=== PATIENT | female | born 1940 | race Caucasian/White ===

== ENCOUNTER → 2016-05-19 | Outpatient (CLI) | payer MEDICARE, OTHER ==
[~2016-05-19] MED LIST: BENA40TA OR; CLON0.1T PO; PANTPAK PO; TRIA37.561 OR
[2016-05-19 13:00] LABS: DEFINITIVE VIEW TRANSMISSION; Hematocrit 34.3 % (36.0-46.0); Hemoglobin 11.6 g/dL (12.2-16.2); Mean Corpuscular Hemoglobin 33.5 pg (28.0-32.0); Mean Corpuscular Hgb Conc. 33.7 g/dL (32.0-36.0); Mean Corpuscular Volume 99.4 fL (80.0-100.0); Platelet Count (auto) 77 10^3/uL (140-450); Red Cell Distribution Width 14.3 % (11.6-16.0); SUSPECT VIEW TRANSMISSION; White Blood Cell 5.8 10^3/uL (4.4-10.8)
[2016-05-19 13:16] LABS: Metamyelocytes % 0; Myelocytes % 0; Promyelocytes % 0; Reactive Lymphocytes 0
[2016-05-19 14:37] LABS: Platelet Estimate Decreased; RBC Morphology Normal
== END | disposition home or self-care (01) ==
LOC: LAB 07:54
PROVIDERS: ATTEND Internal Medicine Cardiovascular Disease
DX: D64.9 Anemia, unspecified (principal)
CPT/HCPCS: 36415; 85007; 85027

== ENCOUNTER → 2016-07-21 | Outpatient (CLI) | payer MEDICARE, OTHER ==
[2016-07-21 08:00] VITALS: BP 128/78
[2016-07-21 08:30] VITALS: BP 130/66
[2016-07-21 12:16] LABS: DEFINITIVE VIEW TRANSMISSION; SUSPECT VIEW TRANSMISSION
[2016-07-21 12:23] LABS: Urine Bilirubin Negative (Negative); Urine Blood TRACE /uL (Negative); Urine Color Yellow (Yellow); Urine Glucose Normal (Normal); Urine Ketone Negative (Negative); Urine Mucus FEW (None Seen); Urine Nitrite Negative (Negative); Urine RBC 18 /hpf (0 - 4); Urine Squamous Epithelial Cell MANY /hpf (<5); Urine Urobilinogen Normal (Negative)
[2016-07-21 12:39] LABS: INR 1.05 (0.9-1.15); Prothrombin Time 10.8 sec (9.37-12.3)
[2016-07-21 13:01] LABS: Hematocrit 35.6 % (36.0-46.0); Hemoglobin 12.2 g/dL (12.2-16.2); Mean Corpuscular Hemoglobin 34.1 pg (28.0-32.0); Mean Corpuscular Hgb Conc. 34.4 g/dL (32.0-36.0); Platelet Count (auto) 92 10^3/uL (140-450); Red Cell Distribution Width 13.7 % (11.6-16.0); White Blood Cell 6.1 10^3/uL (4.4-10.8)
[2016-07-21 13:32] LABS: Metamyelocytes % 0; Myelocytes % 0; Promyelocytes % 0; Reactive Lymphocytes 0
[2016-07-21 13:45] LABS: Albumin 3.8 g/dL (3.4-5.0); BUN/Creatinine Ratio 11.2; Bilirubin, Total 0.5 mg/dL (0.2-1.0); Calcium 9.2 mg/dL (8.5-10.1); Potassium 3.6 mmol/L (3.5-5.1); Total Protein 8.5 g/dL (6.4-8.2)
[2016-07-21 13:51] LABS: Platelet Estimate Decreased; RBC Morphology Normal
== END | disposition home or self-care (01) ==
LOC: Rad HDHVI 07:54
PROVIDERS: ATTEND Internal Medicine Cardiovascular Disease
DX: R59.0 Localized enlarged lymph nodes (principal); C44.310 Basal cell carcinoma of skin of unspecified parts of face; M79.89 Other specified soft tissue disorders; D53.8 Other specified nutritional anemias; N39.0 Urinary tract infection, site not specified; D64.9 Anemia, unspecified; D46.9 Myelodysplastic syndrome, unspecified
CPT/HCPCS: 36415; 71020; 80053; 81001; 83615; 85007; 85027; 85610; 85730; 87086; G0463

== ENCOUNTER → 2016-09-14 | Outpatient (CLI) | payer MEDICARE, OTHER ==
[2016-09-14 16:08] LABS: DEFINITIVE VIEW TRANSMISSION; Hematocrit 34.9 % (36.0-46.0); Hemoglobin 11.6 g/dL (12.2-16.2); Mean Corpuscular Hemoglobin 33.5 pg (28.0-32.0); Mean Corpuscular Hgb Conc. 33.3 g/dL (32.0-36.0); Mean Corpuscular Volume 100.5 fL (80.0-100.0); Mean Platelet Volume 10.6 fL (7.4-10.4); Platelet Count (auto) 87 10^3/uL (140-450); Red Cell Distribution Width 14.4 % (11.6-16.0); SUSPECT VIEW TRANSMISSION
[2016-09-14 16:23] LABS: Metamyelocytes % 0; Myelocytes % 0; Promyelocytes % 0; Reactive Lymphocytes 0
[2016-09-14 16:47] LABS: Albumin 3.6 g/dL (3.4-5.0); BUN/Creatinine Ratio 14.7; Bilirubin, Total 0.6 mg/dL (0.2-1.0); Calcium 9.1 mg/dL (8.5-10.1); Potassium 4.6 mmol/L (3.5-5.1); Total Protein 8.5 g/dL (6.4-8.2)
[2016-09-14 17:32] LABS: Platelet Estimate Decreased
== END | disposition home or self-care (01) ==
LOC: LAB 07:53
PROVIDERS: ATTEND Internal Medicine Cardiovascular Disease
DX: R59.0 Localized enlarged lymph nodes (principal); C44.310 Basal cell carcinoma of skin of unspecified parts of face; D69.6 Thrombocytopenia, unspecified; D46.9 Myelodysplastic syndrome, unspecified
CPT/HCPCS: 36415; 80053; 83615; 85007; 85027

== ENCOUNTER → 2016-11-06 | Outpatient (CLI) | payer MEDICARE, OTHER ==
[2016-11-06 12:44] LABS: CONDITION Y; DEFINITIVE SEE PRINTOUT; Hematocrit 32.9 % (36.0-46.0); Hemoglobin 11.2 g/dL (12.2-16.2); Mean Corpuscular Hemoglobin 34.2 pg (28.0-32.0); Mean Corpuscular Hgb Conc. 34.1 g/dL (32.0-36.0); Mean Corpuscular Volume 100.2 fL (80.0-100.0); Platelet Count (auto) 90 10^3/uL (140-450); Red Cell Distribution Width 14.4 % (11.6-16.0); SUSPECT SEE PRINTOUT; White Blood Cell 6.6 10^3/uL (4.4-10.8)
[2016-11-06 12:54] LABS: Metamyelocytes % 0; Promyelocytes % 0; Reactive Lymphocytes 0
[2016-11-06 13:07] LABS: Albumin 3.7 g/dL (3.4-5.0); BUN/Creatinine Ratio 21.3; Bilirubin, Total 0.5 mg/dL (0.2-1.0); Calcium 8.8 mg/dL (8.5-10.1); Potassium 3.8 mmol/L (3.5-5.1); Total Protein 7.9 g/dL (6.4-8.2)
[2016-11-06 14:16] LABS: Myelocytes % 2
[2016-11-06 14:20] LABS: Platelet Estimate Decreased
[2016-11-06 14:21] LABS: Ovalocytes FEW
== END | disposition home or self-care (01) ==
LOC: LAB 08:30
PROVIDERS: ATTEND Internal Medicine Cardiovascular Disease
DX: R59.0 Localized enlarged lymph nodes (principal); C44.310 Basal cell carcinoma of skin of unspecified parts of face; D69.6 Thrombocytopenia, unspecified; D46.9 Myelodysplastic syndrome, unspecified
CPT/HCPCS: 36415; 80053; 83615; 85007; 85027

== ENCOUNTER → 2017-01-29 | Outpatient (CLI) | payer MEDICARE, OTHER ==
[2017-01-29 12:34] LABS: CONDITION Y; DEFINITIVE SEE PRINTOUT; Hematocrit 32.8 % (36.0-46.0); Hemoglobin 11.2 g/dL (12.2-16.2); Mean Corpuscular Hemoglobin 34.7 pg (28.0-32.0); Mean Corpuscular Hgb Conc. 34.2 g/dL (32.0-36.0); Mean Corpuscular Volume 101.4 fL (80.0-100.0); Mean Platelet Volume 9.9 fL (6.9-10.8); Platelet Count (auto) 79 10^3/uL (140-450); Red Cell Distribution Width 15.1 % (11.8-14.3); SUSPECT SEE PRINTOUT
[2017-01-29 12:54] LABS: Metamyelocytes % 0; Myelocytes % 0; Promyelocytes % 0; Reactive Lymphocytes 0
[2017-01-29 12:58] LABS: Giant Platelets Few; Large Platelets FEW; Platelet Estimate Decrea
[2017-01-29 12:59] LABS: Tear Drop Cells FEW
[2017-01-29 13:09] LABS: Albumin 3.9 g/dL (3.4-5.0); BUN/Creatinine Ratio 18.2; Bilirubin, Total 0.6 mg/dL (0.2-1.0); Calcium 9.4 mg/dL (8.5-10.1); Total Protein 8.5 g/dL (6.4-8.2)
== END | disposition home or self-care (01) ==
LOC: LAB 08:20
PROVIDERS: ATTEND Internal Medicine Cardiovascular Disease
DX: I10 Essential (primary) hypertension (principal); D64.9 Anemia, unspecified
CPT/HCPCS: 36415; 80053; 83615; 85007; 85027

== ENCOUNTER → 2017-03-29 | Outpatient (CLI) | payer MEDICARE, OTHER ==
[2017-03-29 13:01] LABS: Hematocrit 34.2 % (36.0-46.0); Hemoglobin 11.7 g/dL (12.2-16.2); Mean Corpuscular Hemoglobin 34.6 pg (28.0-32.0); Mean Corpuscular Hgb Conc. 34.4 g/dL (32.0-36.0); Mean Corpuscular Volume 100.6 fL (80.0-100.0); Mean Platelet Volume 10.2 fL (6.9-10.8); Platelet Count (auto) 60 10^3/uL (140-450); Red Cell Distribution Width 13.7 % (11.8-14.3); White Blood Cell 6.7 10^3/uL (4.4-10.8)
[2017-03-29 13:11] LABS: Metamyelocytes % 0; Myelocytes % 0; Promyelocytes % 0; Reactive Lymphocytes 0
[2017-03-29 13:14] LABS: Albumin 3.9 g/dL (3.4-5.0); BUN/Creatinine Ratio 16.5; Bilirubin, Total 0.7 mg/dL (0.2-1.0); Calcium 9.1 mg/dL (8.5-10.1); Total Protein 8.5 g/dL (6.4-8.2)
[2017-03-29 14:03] LABS: Macrocytosis Slight; Platelet Estimate Markedly Decreased
== END | disposition home or self-care (01) ==
LOC: LAB 08:29
PROVIDERS: ATTEND Internal Medicine Cardiovascular Disease
DX: C44.310 Basal cell carcinoma of skin of unspecified parts of face (principal); D46.9 Myelodysplastic syndrome, unspecified; R59.0 Localized enlarged lymph nodes; D69.6 Thrombocytopenia, unspecified
CPT/HCPCS: 36415; 80053; 83615; 85007; 85027

== ENCOUNTER → 2017-04-14 | Outpatient (CLI) | payer MEDICARE, OTHER ==
[~2017-04-14] MED LIST changes: +ALBU2TAB4 IN; +OLMETAB9 PO; +POTA10TA51 PO; +PRE5T PO
[2017-04-14 10:30] VITALS: BP 151/69
[2017-04-14 12:43] LABS: Hematocrit 38.1 % (36.0-46.0); Mean Corpuscular Volume 100.1 fL (80.0-100.0); Platelet Count (auto) 78 10^3/uL (140-450); Red Cell Distribution Width 13.6 % (11.8-14.3); White Blood Cell 21.8 10^3/uL (4.4-10.8)
[2017-04-14 12:53] LABS: Metamyelocytes % 0; Myelocytes % 0; Promyelocytes % 0; Reactive Lymphocytes 0
[2017-04-14 12:56] LABS: INR 1.05 (0.9-1.15); Partial Thromboplastin Time 23.8 sec (22.64-33.71); Prothrombin Time 11.4 sec (9.37-12.3)
[2017-04-14 13:26] LABS: BUN/Creatinine Ratio 30.7; Calcium 8.8 mg/dL (8.5-10.1); Potassium 3.4 mmol/L (3.5-5.1)
[2017-04-14 14:10] LABS: Platelet Estimate Decreased
== END | disposition home or self-care (01) ==
LOC: Rad HDHVI 09:35
PROVIDERS: ATTEND Internal Medicine Cardiovascular Disease
DX: Z01.818 Encounter for other preprocedural examination (principal); K44.9 Diaphragmatic hernia without obstruction or gangrene; I10 Essential (primary) hypertension; D64.9 Anemia, unspecified; R79.1 Abnormal coagulation profile
CPT/HCPCS: 36415; 71020; 80048; 85007; 85027; 85610; 85730; 93005; G0463

== ENCOUNTER 2017-04-20 11:13 | Day surgery (SDC) | payer MEDICARE, OTHER ==
[~2017-04-20] VITALS: Ht 167.6 cm; Wt 81.6 kg
[~2017-04-20 11:13] MED LIST changes: -BENA40TA OR; -CLON0.1T PO
[2017-04-20] MEDS ORDERED: VANCOMYCIN 1GM/250ML 250 ML IV ONE (13:15)
[2017-04-20] MEDS ORDERED: ceFAZolin 1GM/50ML 50 ML IV ONE (13:15)
[2017-04-20] MEDS ORDERED: VANCOMYCIN HCL 1000 MG VL IR ONE (13:15)
[2017-04-20] MEDS ORDERED: LIDOCAINE 2%HCL (LOCAL ANESTH.) INJ 20ML MDV ONE (13:48)
[2017-04-20] MEDS ORDERED: MIDAZOLAM HCL 1MG/1ML-2 ML VIAL ONE (14:10)
[2017-04-20] MEDS ORDERED: fentaNYL CITRATE 100 MCG/2 ML VL ONE (14:10)
[2017-04-20] MEDS ORDERED: VANCOMYCIN 1GM/250ML 250 ML IV SCH (22:00)
== END 2017-04-20 16:30 | disposition home or self-care (01) ==
LOC: CATH 11:13
PROVIDERS: ATTEND Internal Medicine Cardiovascular Disease
DX: I49.5 Sick sinus syndrome (principal); I10 Essential (primary) hypertension; Z85.3 Personal history of malignant neoplasm of breast; J40 Bronchitis, not specified as acute or chronic; Z98.51 Tubal ligation status; Z90.710 Acquired absence of both cervix and uterus; Z88.9 Allergy status to unspecified drugs, medicaments and biological substances; Z91.018 Allergy to other foods; Z91.040 Latex allergy status; Z91.02 Food additives allergy status; Z88.8 Allergy status to other drugs, medicaments and biological substances; J45.909 Unspecified asthma, uncomplicated; I34.1 Nonrheumatic mitral (valve) prolapse; Z95.1 Presence of aortocoronary bypass graft
CPT/HCPCS: 33228; C1785; J0690; J2250; J3010; J3370; J7030; 99152; 99153

== ENCOUNTER → 2017-04-23 | Outpatient (CLI) | payer MEDICARE, OTHER ==
[2017-04-23 12:26] LABS: Hematocrit 36.9 % (36.0-46.0); Hemoglobin 12.4 g/dL (12.2-16.2); Mean Corpuscular Hemoglobin 34.3 pg (28.0-32.0); Mean Corpuscular Hgb Conc. 33.8 g/dL (32.0-36.0); Mean Corpuscular Volume 101.6 fL (80.0-100.0); Mean Platelet Volume 10.2 fL (6.9-10.8); Platelet Count (auto) 34 10^3/uL (140-450); Red Cell Distribution Width 13.7 % (11.8-14.3); White Blood Cell 12.9 10^3/uL (4.4-10.8)
[2017-04-23 12:28] LABS: Myelocytes % 0; Promyelocytes % 0; Reactive Lymphocytes 0
[2017-04-23 12:52] LABS: Albumin 3.5 g/dL (3.4-5.0); Bilirubin, Total 0.7 mg/dL (0.2-1.0); Calcium 8.9 mg/dL (8.5-10.1); Potassium 3.3 mmol/L (3.5-5.1); Total Protein 7.5 g/dL (6.4-8.2)
[2017-04-23 14:00] LABS: Metamyelocytes % 2
[2017-04-23 14:01] LABS: Macrocytosis Slight; Platelet Estimate Decreased
== END | disposition home or self-care (01) ==
LOC: LAB 08:43
PROVIDERS: ATTEND Internal Medicine Cardiovascular Disease
DX: C44.310 Basal cell carcinoma of skin of unspecified parts of face (principal); D64.9 Anemia, unspecified; D69.6 Thrombocytopenia, unspecified; R59.0 Localized enlarged lymph nodes
CPT/HCPCS: 36415; 80053; 82728; 83540; 83550; 83615; 85007; 85027

== ENCOUNTER → 2017-05-06 | Outpatient (CLI) | payer MEDICARE, OTHER ==
[2017-05-06 16:54] LABS: Hemoglobin 12.5 g/dL (12.2-16.2)
[2017-05-06 16:56] LABS: Hematocrit 36.8 % (36.0-46.0); Mean Corpuscular Hemoglobin 34.8 pg (28.0-32.0); Mean Corpuscular Hgb Conc. 33.9 g/dL (32.0-36.0); Mean Corpuscular Volume 102.7 fL (80.0-100.0); Mean Platelet Volume 8.9 fL (6.9-10.8); Platelet Count (auto) 71 10^3/uL (140-450); Red Cell Distribution Width 14.6 % (11.8-14.3); White Blood Cell 12.2 10^3/uL (4.4-10.8)
[2017-05-06 16:57] LABS: Albumin 3.8 g/dL (3.4-5.0); BUN/Creatinine Ratio 19.8; Bilirubin, Total 0.8 mg/dL (0.2-1.0); Potassium 3.6 mmol/L (3.5-5.1); Total Protein 7.6 g/dL (6.4-8.2)
[2017-05-06 17:05] LABS: Metamyelocytes % 0; Myelocytes % 0; Promyelocytes % 0
[2017-05-06 18:02] LABS: Anisocytosis Moderate; Macrocytosis Slight; Platelet Estimate Decreased; Reactive Lymphocytes 1
== END | disposition home or self-care (01) ==
LOC: LAB 09:32
PROVIDERS: ATTEND Internal Medicine Cardiovascular Disease
DX: C44.310 Basal cell carcinoma of skin of unspecified parts of face (principal); D69.6 Thrombocytopenia, unspecified; D64.9 Anemia, unspecified; R59.0 Localized enlarged lymph nodes
CPT/HCPCS: 36415; 80053; 82728; 83540; 83550; 83615; 85007; 85027

== ENCOUNTER → 2017-05-13 | Outpatient (CLI) | payer MEDICARE, OTHER ==
[2017-05-13 16:02] LABS: Hemoglobin 12.6 g/dL (12.2-16.2)
[2017-05-13 16:06] LABS: Hematocrit 37.7 % (36.0-46.0); Mean Corpuscular Hemoglobin 34.6 pg (28.0-32.0); Mean Corpuscular Hgb Conc. 33.6 g/dL (32.0-36.0); Mean Corpuscular Volume 103.1 fL (80.0-100.0); Platelet Count (auto) 68 10^3/uL (140-450); Red Blood Cells 3.65 10^6/uL (4.0-5.20); Red Cell Distribution Width 14.9 % (11.8-14.3); White Blood Cell 16.5 10^3/uL (4.4-10.8)
[2017-05-13 16:29] LABS: Band Neutrophils % (manual) 0; Basophils % (manual) 0 (0.0-2.0); Blast Cells 0; Eosinophils % (manual) 0 (0-7); Myelocytes % 0; Promyelocytes % 0; Reactive Lymphocytes 0
[2017-05-13 16:54] LABS: Lymphocytes % (manual) 21 (10.0-50.0); Metamyelocytes % 3; Monocytes % (manual) 22 (0-12)
== END | disposition home or self-care (01) ==
LOC: LAB 09:55
PROVIDERS: ATTEND Internal Medicine Cardiovascular Disease
DX: D64.9 Anemia, unspecified (principal)
CPT/HCPCS: 36415; 85007; 85027

== ENCOUNTER → 2017-05-20 | Outpatient (CLI) | payer MEDICARE, OTHER ==
[2017-05-20 11:51] LABS: Hemoglobin 11.9 g/dL (12.2-16.2)
[2017-05-20 11:55] LABS: Hematocrit 35.1 % (36.0-46.0); Mean Corpuscular Hemoglobin 34.9 pg (28.0-32.0); Mean Corpuscular Hgb Conc. 33.9 g/dL (32.0-36.0); Mean Corpuscular Volume 103.1 fL (80.0-100.0); Platelet Count (auto) 39 10^3/uL (140-450); Red Cell Distribution Width 15.1 % (11.8-14.3); White Blood Cell 13.7 10^3/uL (4.4-10.8)
[2017-05-20 12:30] LABS: Band Neutrophils % (manual) 0; Basophils % (manual) 0 (0.0-2.0); Blast Cells 0; Eosinophils % (manual) 0 (0-7); Promyelocytes % 0; Reactive Lymphocytes 0
[2017-05-20 13:10] LABS: Lymphocytes % (manual) 32 (10.0-50.0); Metamyelocytes % 1; Monocytes % (manual) 24 (0-12); Myelocytes % 1
== END | disposition home or self-care (01) ==
LOC: LAB 08:29
PROVIDERS: ATTEND Internal Medicine Cardiovascular Disease
DX: D64.9 Anemia, unspecified (principal)
CPT/HCPCS: 36415; 85007; 85027

== ENCOUNTER → 2017-05-27 | Outpatient (CLI) | payer MEDICARE, OTHER ==
[2017-05-27 12:14] LABS: Hematocrit 34.1 % (36.0-46.0); Hemoglobin 11.7 g/dL (12.2-16.2); Mean Corpuscular Hemoglobin 35.2 pg (28.0-32.0); Mean Corpuscular Hgb Conc. 34.3 g/dL (32.0-36.0); Mean Corpuscular Volume 102.8 fL (80.0-100.0); Platelet Count (auto) 42 10^3/uL (140-450); Red Blood Cells 3.32 10^6/uL (4.0-5.20); Red Cell Distribution Width 15.9 % (11.8-14.3); White Blood Cell 11.2 10^3/uL (4.4-10.8)
[2017-05-27 12:18] LABS: Band Neutrophils % (manual) 0; Basophils % (manual) 0 (0.0-2.0); Blast Cells 0; Metamyelocytes % 0; Myelocytes % 0; Promyelocytes % 0; Reactive Lymphocytes 0
[2017-05-27 12:32] LABS: Albumin 3.3 g/dL (3.4-5.0); Bilirubin, Total 0.8 mg/dL (0.2-1.0); Calcium 8.4 mg/dL (8.5-10.1); Potassium 3.6 mmol/L (3.5-5.1); Total Protein 7.1 g/dL (6.4-8.2)
[2017-05-27 12:44] LABS: Eosinophils % (manual) 1 (0-7); Lymphocytes % (manual) 28 (10.0-50.0); Monocytes % (manual) 14 (0-12)
== END | disposition home or self-care (01) ==
LOC: LAB 08:38
PROVIDERS: ATTEND Internal Medicine Cardiovascular Disease
DX: C44.310 Basal cell carcinoma of skin of unspecified parts of face (principal); R59.0 Localized enlarged lymph nodes; D69.6 Thrombocytopenia, unspecified; D46.9 Myelodysplastic syndrome, unspecified
CPT/HCPCS: 36415; 80053; 83615; 85007; 85027

== ENCOUNTER → 2017-07-08 | Outpatient (CLI) | payer MEDICARE, OTHER ==
[2017-07-08 12:05] LABS: Hemoglobin 11.1 g/dL (12.2-16.2); Red Cell Distribution Width 15.9 % (11.8-14.3); White Blood Cell 6.2 10^3/uL (4.4-10.8)
[2017-07-08 12:06] LABS: Hematocrit 32.7 % (36.0-46.0); Mean Corpuscular Hemoglobin 35.1 pg (28.0-32.0); Mean Corpuscular Hgb Conc. 33.8 g/dL (32.0-36.0); Mean Corpuscular Volume 103.6 fL (80.0-100.0); Platelet Count (auto) 66 10^3/uL (140-450); Red Blood Cells 3.16 10^6/uL (4.0-5.20)
[2017-07-08 12:20] LABS: Band Neutrophils % (manual) 0
[2017-07-08 12:21] LABS: Basophils % (manual) 0 (0.0-2.0); Blast Cells 0; Metamyelocytes % 0; Myelocytes % 0; Promyelocytes % 0; Reactive Lymphocytes 0
[2017-07-08 13:11] LABS: Albumin 3.7 g/dL (3.4-5.0); BUN/Creatinine Ratio 16.8; Bilirubin, Total 0.7 mg/dL (0.2-1.0); Calcium 9.1 mg/dL (8.5-10.1); Potassium 3.6 mmol/L (3.5-5.1); Total Protein 8.3 g/dL (6.4-8.2)
[2017-07-08 13:29] LABS: Eosinophils % (manual) 3 (0-7); Lymphocytes % (manual) 42 (10.0-50.0); Monocytes % (manual) 27 (0-12)
== END | disposition home or self-care (01) ==
LOC: LAB 08:05
PROVIDERS: ATTEND Internal Medicine Cardiovascular Disease
DX: R59.0 Localized enlarged lymph nodes (principal); C44.310 Basal cell carcinoma of skin of unspecified parts of face; D69.6 Thrombocytopenia, unspecified; D64.9 Anemia, unspecified; R79.89 Other specified abnormal findings of blood chemistry
CPT/HCPCS: 36415; 80053; 80061; 83615; 85007; 85027

== ENCOUNTER → 2017-08-19 | Outpatient (CLI) | payer MEDICARE, OTHER ==
[2017-08-19 12:17] LABS: BUN/Creatinine Ratio 14.6; Calcium 9.3 mg/dL (8.5-10.1); Potassium 3.7 mmol/L (3.5-5.1); Uric Acid 8.2 mg/dL (2.6-6.0)
== END | disposition home or self-care (01) ==
LOC: Rad HDHVI 10:25
PROVIDERS: ATTEND Internal Medicine
DX: M25.561 Pain in right knee (principal); M10.9 Gout, unspecified; I10 Essential (primary) hypertension; Z79.899 Other long term (current) drug therapy
CPT/HCPCS: 36415; 73562; 80048; 84550

== ENCOUNTER → 2017-09-02 | Outpatient (CLI) | payer MEDICARE, OTHER ==
[2017-09-02 11:49] LABS: Hematocrit 34.5 % (36.0-46.0); Hemoglobin 11.6 g/dL (12.2-16.2); Mean Corpuscular Hemoglobin 33.8 pg (28.0-32.0); Mean Corpuscular Hgb Conc. 33.7 g/dL (32.0-36.0); Mean Corpuscular Volume 100.1 fL (80.0-100.0); Platelet Count (auto) 67 10^3/uL (140-450); Red Blood Cells 3.44 10^6/uL (4.0-5.20); Red Cell Distribution Width 14.5 % (11.8-14.3); White Blood Cell 7.9 10^3/uL (4.4-10.8)
[2017-09-02 11:57] LABS: Band Neutrophils % (manual) 0; Basophils % (manual) 0 (0.0-2.0); Blast Cells 0; Metamyelocytes % 0; Myelocytes % 0; Promyelocytes % 0; Reactive Lymphocytes 0
[2017-09-02 12:05] LABS: Albumin 3.9 g/dL (3.4-5.0); BUN/Creatinine Ratio 12.7; Bilirubin, Total 0.6 mg/dL (0.2-1.0); Calcium 9.3 mg/dL (8.5-10.1); Potassium 3.5 mmol/L (3.5-5.1); Total Protein 8.8 g/dL (6.4-8.2)
[2017-09-02 12:39] LABS: Eosinophils % (manual) 2 (0-7); Lymphocytes % (manual) 33 (10.0-50.0); Monocytes % (manual) 29 (0-12)
== END | disposition home or self-care (01) ==
LOC: Rad HDHVI 08:18
PROVIDERS: ATTEND Internal Medicine Cardiovascular Disease
DX: K44.9 Diaphragmatic hernia without obstruction or gangrene (principal); J98.11 Atelectasis; R59.0 Localized enlarged lymph nodes; C44.310 Basal cell carcinoma of skin of unspecified parts of face; D69.9 Hemorrhagic condition, unspecified; D46.9 Myelodysplastic syndrome, unspecified; Z79.899 Other long term (current) drug therapy
CPT/HCPCS: 36415; 71250; 80053; 83615; 84436; 84443; 85007; 85027

== ENCOUNTER → 2017-09-23 | Outpatient (CLI) | payer MEDICARE, OTHER ==
[2017-09-23 12:33] LABS: BUN/Creatinine Ratio 15.8; Calcium 9.2 mg/dL (8.5-10.1); Potassium 3.7 mmol/L (3.5-5.1); Uric Acid 7.9 mg/dL (2.6-6.0)
== END | disposition home or self-care (01) ==
LOC: LAB 09:11
PROVIDERS: ATTEND Internal Medicine Cardiovascular Disease
DX: I10 Essential (primary) hypertension (principal); M10.9 Gout, unspecified; Z79.899 Other long term (current) drug therapy
CPT/HCPCS: 36415; 80048; 84550

== ENCOUNTER → 2017-10-28 | Outpatient (CLI) | payer MEDICARE, BC ==
[2017-10-28 11:56] LABS: Hematocrit 33.6 % (36.0-46.0); Hemoglobin 11.4 g/dL (12.2-16.2); Mean Corpuscular Hemoglobin 34.2 pg (28.0-32.0); Mean Corpuscular Hgb Conc. 33.8 g/dL (32.0-36.0); Mean Corpuscular Volume 101.2 fL (80.0-100.0); Platelet Count (auto) 69 10^3/uL (140-450); Red Blood Cells 3.32 10^6/uL (4.0-5.20); Red Cell Distribution Width 14.3 % (11.8-14.3); White Blood Cell 6.1 10^3/uL (4.4-10.8)
[2017-10-28 11:58] LABS: Basophils % (manual) 0 (0.0-2.0); Blast Cells 0; Metamyelocytes % 0; Myelocytes % 0; Promyelocytes % 0
[2017-10-28 12:17] LABS: Albumin 3.7 g/dL (3.4-5.0); BUN/Creatinine Ratio 15.2; Bilirubin, Total 0.5 mg/dL (0.2-1.0); Potassium 3.6 mmol/L (3.5-5.1); Total Protein 8.2 g/dL (6.4-8.2)
[2017-10-28 12:48] LABS: Band Neutrophils % (manual) 2; Eosinophils % (manual) 1 (0-7); Lymphocytes % (manual) 30 (10.0-50.0); Monocytes % (manual) 35 (0-12); Reactive Lymphocytes 8
== END | disposition home or self-care (01) ==
LOC: LAB 07:58
PROVIDERS: ATTEND Internal Medicine Cardiovascular Disease
DX: C44.310 Basal cell carcinoma of skin of unspecified parts of face (principal); R59.0 Localized enlarged lymph nodes; D69.6 Thrombocytopenia, unspecified; D64.9 Anemia, unspecified
CPT/HCPCS: 36415; 80053; 82668; 83615; 85007; 85027

== ENCOUNTER → 2017-12-23 | Outpatient (CLI) | payer MEDICARE, BC ==
[2017-12-23 12:02] LABS: Hematocrit 35.3 % (36.0-46.0); Hemoglobin 11.9 g/dL (12.2-16.2); Mean Corpuscular Hemoglobin 33.6 pg (28.0-32.0); Mean Corpuscular Hgb Conc. 33.6 g/dL (32.0-36.0); Mean Corpuscular Volume 100.1 fL (80.0-100.0); Platelet Count (auto) 73 10^3/uL (140-450); Red Blood Cells 3.53 10^6/uL (4.0-5.20); White Blood Cell 5.3 10^3/uL (4.4-10.8)
[2017-12-23 12:29] LABS: Albumin 3.8 g/dL (3.4-5.0); BUN/Creatinine Ratio 13.5; Bilirubin, Total 0.5 mg/dL (0.2-1.0); Calcium 8.9 mg/dL (8.5-10.1); Potassium 3.9 mmol/L (3.5-5.1); Total Protein 8.4 g/dL (6.4-8.2)
[2017-12-23 12:55] LABS: Band Neutrophils % (manual) 0; Basophils % (manual) 0 (0.0-2.0); Blast Cells 0; Metamyelocytes % 0; Myelocytes % 0; Promyelocytes % 0
[2017-12-23 13:53] LABS: Lymphocytes % (manual) 23 (10.0-50.0)
[2017-12-23 13:54] LABS: Eosinophils % (manual) 1 (0-7); Monocytes % (manual) 30 (0-12); Reactive Lymphocytes 5
== END | disposition home or self-care (01) ==
LOC: LAB 07:53
PROVIDERS: ATTEND Internal Medicine Cardiovascular Disease
DX: C44.310 Basal cell carcinoma of skin of unspecified parts of face (principal); I10 Essential (primary) hypertension; R59.0 Localized enlarged lymph nodes; D46.9 Myelodysplastic syndrome, unspecified; D69.6 Thrombocytopenia, unspecified; Z79.899 Other long term (current) drug therapy
CPT/HCPCS: 36415; 80053; 83615; 85007; 85027

== ENCOUNTER → 2018-02-17 | Outpatient (CLI) | payer MEDICARE, BC ==
[2018-02-17 12:26] LABS: White Blood Cell 5.4 10^3/uL (4.4-10.8)
[2018-02-17 12:29] LABS: Hematocrit 34.4 % (36.0-46.0); Mean Corpuscular Hemoglobin 35.1 pg (28.0-32.0); Mean Corpuscular Hgb Conc. 34.9 g/dL (32.0-36.0); Mean Corpuscular Volume 100.8 fL (80.0-100.0); Platelet Count (auto) 62 10^3/uL (140-450); Red Blood Cells 3.42 10^6/uL (4.0-5.20); Red Cell Distribution Width 14.2 % (11.8-14.3)
[2018-02-17 12:38] LABS: Band Neutrophils % (manual) 0; Basophils % (manual) 0 (0.0-2.0); Blast Cells 0; Eosinophils % (manual) 0 (0-7); Metamyelocytes % 0; Myelocytes % 0; Promyelocytes % 0; Reactive Lymphocytes 0
[2018-02-17 14:09] LABS: Lymphocytes % (manual) 25 (10.0-50.0); Monocytes % (manual) 41 (0-12)
[2018-02-17 15:25] LABS: Potassium 3.7 mmol/L (3.5-5.1)
[2018-02-17 16:02] LABS: BUN/Creatinine Ratio 13.5; Calcium 8.4 mg/dL (8.5-10.1)
[2018-02-17 16:03] LABS: Albumin 3.7 g/dL (3.4-5.0); Bilirubin, Total 0.8 mg/dL (0.2-1.0); Total Protein 8.3 g/dL (6.4-8.2)
== END | disposition home or self-care (01) ==
LOC: LAB 08:41
PROVIDERS: ATTEND Internal Medicine Cardiovascular Disease
DX: D64.9 Anemia, unspecified (principal); I10 Essential (primary) hypertension; R59.0 Localized enlarged lymph nodes; C44.310 Basal cell carcinoma of skin of unspecified parts of face
CPT/HCPCS: 36415; 80053; 83615; 85007; 85027

== ENCOUNTER → 2018-04-21 | Outpatient (CLI) | payer MEDICARE, BC ==
[2018-04-21 12:26] LABS: Hematocrit 35.4 % (36.0-46.0); Hemoglobin 12.1 g/dL (12.2-16.2); Mean Corpuscular Hgb Conc. 34.2 g/dL (32.0-36.0); Mean Corpuscular Volume 102.2 fL (80.0-100.0); Platelet Count (auto) 64 10^3/uL (140-450); Red Blood Cells 3.46 10^6/uL (4.0-5.20); White Blood Cell 4.8 10^3/uL (4.4-10.8)
[2018-04-21 12:30] LABS: Basophils % (manual) 0 (0.0-2.0); Blast Cells 0; Metamyelocytes % 0; Myelocytes % 0; Promyelocytes % 0; Reactive Lymphocytes 0
[2018-04-21 12:37] LABS: Potassium 3.7 mmol/L (3.5-5.1)
[2018-04-21 12:50] LABS: Albumin 3.7 g/dL (3.4-5.0); BUN/Creatinine Ratio 13.2; Bilirubin, Total 0.6 mg/dL (0.2-1.0); Total Protein 8.1 g/dL (6.4-8.2)
[2018-04-21 13:25] LABS: Band Neutrophils % (manual) 1; Eosinophils % (manual) 1 (0-7); Lymphocytes % (manual) 30 (10.0-50.0); Monocytes % (manual) 31 (0-12)
== END | disposition home or self-care (01) ==
LOC: LAB 08:32
PROVIDERS: ATTEND Internal Medicine Cardiovascular Disease
DX: C44.310 Basal cell carcinoma of skin of unspecified parts of face (principal); D69.1 Qualitative platelet defects; R59.0 Localized enlarged lymph nodes; D64.9 Anemia, unspecified
CPT/HCPCS: 36415; 80053; 82784; 83615; 85007; 85027; 86334

== ENCOUNTER → 2018-06-16 | Outpatient (CLI) | payer MEDICARE, BC ==
[2018-06-16 12:14] LABS: Platelet Count (auto) 57 10^3/uL (140-450)
[2018-06-16 12:17] LABS: Mean Corpuscular Hemoglobin 34.6 pg (28.0-32.0); Mean Corpuscular Hgb Conc. 34.2 g/dL (32.0-36.0); Mean Corpuscular Volume 101.3 fL (80.0-100.0); Red Blood Cells 3.46 10^6/uL (4.0-5.20); Red Cell Distribution Width 13.3 % (11.8-14.3); White Blood Cell 5.5 10^3/uL (4.4-10.8)
[2018-06-16 12:30] LABS: Basophils % (manual) 0 (0.0-2.0); Blast Cells 0; Metamyelocytes % 0; Myelocytes % 0; Potassium 3.7 mmol/L (3.5-5.1); Promyelocytes % 0; Reactive Lymphocytes 0
[2018-06-16 12:36] LABS: Albumin 3.5 g/dL (3.4-5.0); BUN/Creatinine Ratio 18.8; Bilirubin, Total 0.5 mg/dL (0.2-1.0); Calcium 8.8 mg/dL (8.5-10.1)
[2018-06-16 14:26] LABS: Band Neutrophils % (manual) 3; Eosinophils % (manual) 1 (0-7); Lymphocytes % (manual) 30 (10.0-50.0); Monocytes % (manual) 31 (0-12)
== END | disposition home or self-care (01) ==
LOC: LAB 07:56
PROVIDERS: ATTEND Internal Medicine Cardiovascular Disease
DX: D69.6 Thrombocytopenia, unspecified (principal); C44.310 Basal cell carcinoma of skin of unspecified parts of face; D46.9 Myelodysplastic syndrome, unspecified; R59.0 Localized enlarged lymph nodes
CPT/HCPCS: 36415; 80053; 83615; 85007; 85027

== ENCOUNTER → 2018-08-11 | Outpatient (CLI) | payer MEDICARE, BC ==
[2018-08-11 12:20] LABS: Hemoglobin 12.1 g/dL (12.2-16.2); Platelet Count (auto) 59 10^3/uL (140-450); Red Cell Distribution Width 14.1 % (11.8-14.3)
[2018-08-11 12:21] LABS: Albumin 3.7 g/dL (3.4-5.0)
[2018-08-11 12:23] LABS: Mean Corpuscular Hemoglobin 34.3 pg (28.0-32.0); Mean Corpuscular Hgb Conc. 33.6 g/dL (32.0-36.0); Mean Corpuscular Volume 102.3 fL (80.0-100.0); Red Blood Cells 3.52 10^6/uL (4.0-5.20)
[2018-08-11 12:25] LABS: BUN/Creatinine Ratio 16.8; Bilirubin, Total 0.5 mg/dL (0.2-1.0); Total Protein 7.9 g/dL (6.4-8.2)
[2018-08-11 12:31] LABS: Band Neutrophils % (manual) 0; Basophils % (manual) 0 (0.0-2.0); Blast Cells 0; Metamyelocytes % 0; Myelocytes % 0; Promyelocytes % 0; Reactive Lymphocytes 0
[2018-08-11 13:01] LABS: Eosinophils % (manual) 1 (0-7); Lymphocytes % (manual) 32 (10.0-50.0); Monocytes % (manual) 26 (0-12)
== END | disposition home or self-care (01) ==
LOC: LAB 07:58
PROVIDERS: ATTEND Internal Medicine Cardiovascular Disease
DX: C44.310 Basal cell carcinoma of skin of unspecified parts of face (principal); D46.9 Myelodysplastic syndrome, unspecified; D69.6 Thrombocytopenia, unspecified; R59.0 Localized enlarged lymph nodes
CPT/HCPCS: 36415; 80053; 83615; 85007; 85027

== ENCOUNTER → 2018-08-26 | Outpatient (CLI) | payer MEDICARE, BC ==
[~2018-08-26] VITALS: Ht 167.6 cm; Wt 83.5 kg
[~2018-08-26] MED LIST changes: +ADENOSINE 70 MG in GIVE UN-DILUTED 0 ML IV ONE; +ADENOSINE 90 MG/30 ML INJ IV ONE
== END | disposition home or self-care (01) ==
LOC: Rad HDHVI 07:53
PROVIDERS: ATTEND Internal Medicine Cardiovascular Disease
DX: C91.90 Lymphoid leukemia, unspecified not having achieved remission (principal); E78.00 Pure hypercholesterolemia, unspecified; D69.6 Thrombocytopenia, unspecified; I20.0 Unstable angina
CPT/HCPCS: 78452; 93005; 96374; 96375; A9500; J0153

== ENCOUNTER → 2018-09-30 | Outpatient (CLI) | payer MEDICARE, BC ==
[~2018-09-30] MED LIST changes: -ADENOSINE 70 MG in GIVE UN-DILUTED 0 ML IV ONE; -ADENOSINE 90 MG/30 ML INJ IV ONE; +D5W/SOD CHLO 0.9% 1,000 ML IV ONE; +DEXTROSE 50% SYRINGE 50 ML IV ONE; +METO25TA62 PO; +PANT40TA2 PO
--- NOTE | 2018-09-30 10:20 | NUR ---
FROM BACK OFFICE WITH ORDERS FOR IV FLUIDS FOR COMPLAINT OF ABDOMINAL PAIN ACCOMPANIED BY N/V AND PAIN. IV insertion IV access obtained, via clean sterile technique by inserting 22 gauge catheter at after attempt(s). IV secured properly. No trauma to site. Patient tolerated procedure well. START IV FLUID D5NS AT 250 ML/HR.
[2018-09-30 11:55] LABS: Hematocrit 38.6 % (36.0-46.0); Hemoglobin 13.2 g/dL (12.2-16.2); Mean Corpuscular Hemoglobin 34.6 pg (28.0-32.0); Mean Corpuscular Hgb Conc. 34.3 g/dL (32.0-36.0); Platelet Count (auto) 61 10^3/uL (140-450); Red Blood Cells 3.82 10^6/uL (4.0-5.20); Red Cell Distribution Width 13.8 % (11.8-14.3); White Blood Cell 7.1 10^3/uL (4.4-10.8)
[2018-09-30 11:58] LABS: Basophils % (manual) 0 (0.0-2.0); Blast Cells 0; Eosinophils % (manual) 0 (0-7); Metamyelocytes % 0; Myelocytes % 0; Promyelocytes % 0; Reactive Lymphocytes 0
[2018-09-30 12:07] LABS: BUN/Creatinine Ratio 17.9; Calcium 9.7 mg/dL (8.5-10.1); Potassium 4.1 mmol/L (3.5-5.1)
[2018-09-30 12:59] LABS: Band Neutrophils % (manual) 0; Lymphocytes % (manual) 25 (10.0-50.0); Monocytes % (manual) 38 (0-12)
--- NOTE | 2018-09-30 13:04 | NUR ---
IV FLUIDS ONGOING. TOLERATING WELL. VS WNL. CHEERFUL, TALKATIVE, WITHOUT PAIN OR DISCOMFORT AT THIS TIME.
[2018-09-30 14:15] VITALS: BP 156/56
--- NOTE | 2018-09-30 14:15 | NUR ---
infusion completed. tolerated well. SKIN PINK AND WARM AND DRY. WITHOUT COMPLAINT. VS WNL. IV SITE DCD AND SITE BENIGN POST INFUSION. Discharge Instructions See e-MAR for any mediations given with this visit. Patient education given on disease process. Patient verbalized understanding. Previous labs reviewed. Patient discharged in stable condition with after care instructions and follow up appointment.
[2018-09-30 17:07] LABS: Urine Blood Negative /uL (Negative); Urine Specific Gravity 1.018 (1.001-1.035)
== END | disposition home or self-care (01) ==
LOC: CHF HDHVI 10:11
PROVIDERS: ATTEND Internal Medicine Cardiovascular Disease
DX: E86.0 Dehydration (principal); I12.9 Hypertensive chronic kidney disease with stage 1 through stage 4 chronic kidney disease, or unspecified chronic kidney disease; N18.3 Chronic kidney disease, stage 3 (moderate); D64.9 Anemia, unspecified; N39.0 Urinary tract infection, site not specified; K21.9 Gastro-esophageal reflux disease without esophagitis; J45.909 Unspecified asthma, uncomplicated; E78.00 Pure hypercholesterolemia, unspecified; F41.9 Anxiety disorder, unspecified; Z85.6 Personal history of leukemia; Z90.710 Acquired absence of both cervix and uterus; Z85.828 Personal history of other malignant neoplasm of skin
CPT/HCPCS: 36415; 80048; 81003; 85007; 85027; 87086; 96360; 96361; G0463; J7030; J7042

== ENCOUNTER → 2018-11-01 | Outpatient (CLI) | payer MEDICARE, BC ==
[~2018-11-01] MED LIST changes: -D5W/SOD CHLO 0.9% 1,000 ML IV ONE; -DEXTROSE 50% SYRINGE 50 ML IV ONE; -PANTPAK PO; -TRIA37.561 OR
[2018-11-01 12:32] LABS: Hemoglobin 11.7 g/dL (12.2-16.2)
[2018-11-01 12:35] LABS: Hematocrit 34.6 % (36.0-46.0); Mean Corpuscular Hgb Conc. 33.8 g/dL (32.0-36.0); Mean Corpuscular Volume 103.6 fL (80.0-100.0); Platelet Count (auto) 50 10^3/uL (140-450); Red Blood Cells 3.34 10^6/uL (4.0-5.20); Red Cell Distribution Width 14.5 % (11.8-14.3); White Blood Cell 3.9 10^3/uL (4.4-10.8)
[2018-11-01 13:07] LABS: Basophils % (manual) 0 (0.0-2.0); Blast Cells 0; Metamyelocytes % 0; Myelocytes % 0; Promyelocytes % 0; Reactive Lymphocytes 0
[2018-11-01 13:26] LABS: Potassium 3.7 mmol/L (3.5-5.1)
[2018-11-01 13:38] LABS: Albumin 3.7 g/dL (3.4-5.0); BUN/Creatinine Ratio 14.9; Bilirubin, Total 0.7 mg/dL (0.2-1.0); Calcium 9.1 mg/dL (8.5-10.1); Total Protein 7.9 g/dL (6.4-8.2)
[2018-11-01 14:27] LABS: Band Neutrophils % (manual) 2; Lymphocytes % (manual) 35 (10.0-50.0)
[2018-11-01 14:28] LABS: Eosinophils % (manual) 1 (0-7); Monocytes % (manual) 29 (0-12)
== END | disposition home or self-care (01) ==
LOC: LAB 08:30
PROVIDERS: ATTEND Internal Medicine Cardiovascular Disease
DX: C44.310 Basal cell carcinoma of skin of unspecified parts of face (principal); D69.6 Thrombocytopenia, unspecified; D46.9 Myelodysplastic syndrome, unspecified; R59.0 Localized enlarged lymph nodes
CPT/HCPCS: 36415; 80053; 83615; 85007; 85027

== ENCOUNTER → 2019-01-12 | Outpatient (CLI) | payer MEDICARE, BC ==
[2019-01-12 12:40] LABS: % Iron Saturation 24.1 % (15-50)
[2019-01-12 12:42] LABS: Albumin 3.8 g/dL (3.4-5.0); Potassium 3.7 mmol/L (3.5-5.1)
[2019-01-12 12:43] LABS: BUN/Creatinine Ratio 14.9; Bilirubin, Total 0.7 mg/dL (0.2-1.0); Total Protein 8.1 g/dL (6.4-8.2)
[2019-01-12 12:52] LABS: Hematocrit 34.8 % (36.0-46.0); Hemoglobin 11.9 g/dL (12.2-16.2); Mean Corpuscular Hgb Conc. 34.3 g/dL (32.0-36.0); Platelet Count (auto) 38 10^3/uL (140-450); Red Cell Distribution Width 14.6 % (11.8-14.3); White Blood Cell 3.7 10^3/uL (4.4-10.8)
[2019-01-12 12:54] LABS: Ferritin 91.9 ng/mL (10-322); Mean Corpuscular Hemoglobin 34.7 pg (28.0-32.0); Mean Corpuscular Volume 101.2 fL (80.0-100.0); Red Blood Cells 3.44 10^6/uL (4.0-5.20)
[2019-01-12 12:56] LABS: Folate (Folic Acid) 14.21 ng/mL (5.38-24)
[2019-01-12 12:59] LABS: Basophils % (manual) 0 (0.0-2.0); Blast Cells 0; Eosinophils % (manual) 0 (0-7); Metamyelocytes % 0; Myelocytes % 0; Promyelocytes % 0; Reactive Lymphocytes 0
[2019-01-12 14:46] LABS: Band Neutrophils % (manual) 2; Lymphocytes % (manual) 43 (10.0-50.0); Monocytes % (manual) 21 (0-12)
== END | disposition home or self-care (01) ==
LOC: LAB 08:05
PROVIDERS: ATTEND Internal Medicine Cardiovascular Disease
DX: R59.0 Localized enlarged lymph nodes (principal); D69.6 Thrombocytopenia, unspecified; C44.310 Basal cell carcinoma of skin of unspecified parts of face; D46.9 Myelodysplastic syndrome, unspecified
CPT/HCPCS: 36415; 80053; 82607; 82728; 82746; 83540; 83550; 83615; 85007; 85027

== ENCOUNTER → 2019-02-09 | Outpatient (CLI) | payer MEDICARE, BC ==
[2019-02-09 12:08] LABS: Hemoglobin 11.2 g/dL (12.2-16.2); Platelet Count (auto) 50 10^3/uL (140-450); White Blood Cell 3.8 10^3/uL (4.4-10.8)
[2019-02-09 12:10] LABS: Hematocrit 32.8 % (36.0-46.0); Mean Corpuscular Hemoglobin 34.3 pg (28.0-32.0); Mean Corpuscular Volume 100.9 fL (80.0-100.0); Red Blood Cells 3.26 10^6/uL (4.0-5.20); Red Cell Distribution Width 15.2 % (11.8-14.3)
[2019-02-09 12:20] LABS: Potassium 4.3 mmol/L (3.5-5.1)
[2019-02-09 12:25] LABS: Basophils % (manual) 0 (0.0-2.0); Blast Cells 0; Metamyelocytes % 0; Myelocytes % 0; Promyelocytes % 0; Reactive Lymphocytes 0
[2019-02-09 12:28] LABS: Albumin 3.5 g/dL (3.4-5.0); BUN/Creatinine Ratio 12.8; Bilirubin, Total 0.8 mg/dL (0.2-1.0); Calcium 8.9 mg/dL (8.5-10.1); Total Protein 7.9 g/dL (6.4-8.2)
[2019-02-09 12:43] LABS: INR 1.04 (0.9-1.15); Partial Thromboplastin Time 29.4 sec (23.64-32.05)
[2019-02-09 13:42] LABS: Band Neutrophils % (manual) 2; Eosinophils % (manual) 1 (0-7); Lymphocytes % (manual) 39 (10.0-50.0); Monocytes % (manual) 20 (0-12)
== END | disposition home or self-care (01) ==
LOC: LAB 08:23
PROVIDERS: ATTEND Internal Medicine Cardiovascular Disease
DX: D69.6 Thrombocytopenia, unspecified (principal); R59.0 Localized enlarged lymph nodes; C44.310 Basal cell carcinoma of skin of unspecified parts of face; D46.9 Myelodysplastic syndrome, unspecified
CPT/HCPCS: 36415; 80053; 83615; 85007; 85027; 85610; 85730

== ENCOUNTER → 2019-02-28 | Outpatient (CLI) | payer MEDICARE, BC ==
[2019-02-28 12:08] LABS: Hematocrit 34.4 % (36.0-46.0); Hemoglobin 11.5 g/dL (12.2-16.2); Red Blood Cells 3.36 10^6/uL (4.0-5.20)
[2019-02-28 12:14] LABS: Mean Corpuscular Hemoglobin 34.2 pg (28.0-32.0); Mean Corpuscular Hgb Conc. 33.3 g/dL (32.0-36.0); Mean Corpuscular Volume 102.7 fL (80.0-100.0); Platelet Count (auto) 54 10^3/uL (140-450); Red Cell Distribution Width 16.2 % (11.8-14.3); White Blood Cell 4.2 10^3/uL (4.4-10.8)
[2019-02-28 12:32] LABS: INR 1.02 (0.9-1.15); Partial Thromboplastin Time 28.5 sec (23.64-32.05)
[2019-02-28 12:49] LABS: Basophils % (manual) 0 (0.0-2.0); Blast Cells 0; Eosinophils % (manual) 0 (0-7); Metamyelocytes % 0; Myelocytes % 0; Promyelocytes % 0; Reactive Lymphocytes 0
[2019-02-28 14:02] LABS: Band Neutrophils % (manual) 2; Lymphocytes % (manual) 35 (10.0-50.0); Monocytes % (manual) 26 (0-12)
== END | disposition home or self-care (01) ==
LOC: LAB 09:36
PROVIDERS: ATTEND Internal Medicine Cardiovascular Disease
DX: D46.9 Myelodysplastic syndrome, unspecified (principal); D69.6 Thrombocytopenia, unspecified
CPT/HCPCS: 36415; 85007; 85027; 85610; 85730

== ENCOUNTER → 2019-03-06 | Outpatient (CLI) | payer MEDICARE, BC ==
[~2019-03-06] MED LIST changes: +CYANOCOBALAMIN (B-12) 1000 MCG/1 ML VIAL IM ONE; +CYANOCOBALAMIN (B-12) 1000 MCG/1 ML VIAL ONE; +FOLIC ACID 1 MG, MULTIPLE VITAMIN 10 ML, MAGNESIUM SULF SDV 50% 8 MEQ, THIAMINE INJ 100... INJ SCH; +MVI in SODIUM CHLORIDE 0.9% 1,000 ML IVB ONE; +MVI in SODIUM CHLORIDE 0.9% 1,010 ML ONE
[2019-03-06 08:20] VITALS: BP 199/85
--- NOTE | 2019-03-06 08:20 | NUR ---
PT. TO [facility] FOR IV HYDRATION PER MD ORDER. SPOUSE WITH PT. AOX3, PWD. PT. 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 PINZON. PT. HAD CALLED THIS R.N. LAST WEDNESDAY WITH HR FLUCTUATING BETWEEN 100-130, AND STATED SHE WAS TOLD SHE WOULD GET IV HYDRATION AT [facility] DURING PROCEDURE AND WAS NOT. PT PRESENTS WITH ELEVATED B/P AND STATES SHE HAS BEEN INSTRUCTED TO ONLY TAKE HER TRIBENZOR IF SBP IS GREATER THAN [address] MA[address]AAJ. ORDERS RECEIVED AND CARRIED OUT.
--- NOTE | 2019-03-06 08:45 | NUR ---
IV insertion IV access obtained, via clean sterile technique by inserting 20 gauge catheter at after attempt(s). IV secured properly. No trauma to site. Patient tolerated procedure well. STAT LABS SENT PER MD ORDER.
--- NOTE | 2019-03-06 09:00 | NUR ---
MEDS: BANANA BAG STARTED AT 200CC/HR PER MD ORDER.
[2019-03-06 09:36] LABS: Hematocrit 33.9 % (36.0-46.0); Hemoglobin 11.5 g/dL (12.2-16.2); Mean Corpuscular Hemoglobin 34.4 pg (28.0-32.0); Mean Corpuscular Hgb Conc. 34.1 g/dL (32.0-36.0); Mean Corpuscular Volume 101.1 fL (80.0-100.0); Platelet Count (auto) 57 10^3/uL (140-450); Red Blood Cells 3.35 10^6/uL (4.0-5.20); Red Cell Distribution Width 15.9 % (11.8-14.3); White Blood Cell 3.6 10^3/uL (4.4-10.8)
[2019-03-06 09:41] LABS: Band Neutrophils % (manual) 0; Basophils % (manual) 0 (0.0-2.0); Blast Cells 0; Metamyelocytes % 0; Myelocytes % 0; Promyelocytes % 0; Reactive Lymphocytes 0
[2019-03-06 10:04] LABS: Eosinophils % (manual) 2 (0-7); Lymphocytes % (manual) 47 (10.0-50.0); Monocytes % (manual) 21 (0-12)
--- NOTE | 2019-03-06 10:30 | NUR ---
COMFORT: PT. RESTING WITH NO C/O AT THIS TIME. 154/59, 66, 18, 96 RA. SPOUSE REMAINS AT BEDSIDE FOR SUPPORT.
--- NOTE | 2019-03-06 11:30 | NUR ---
PT. GIVEN SAMPLE OF VIT. D3 WITH INSTRUCTIONS TO USE 2,500 IU Q HS PER MD ORDER.
[2019-03-06 11:47] LABS: Calcium 8.8 mg/dL (8.5-10.1); Magnesium 2.2 mg/dL (1.6-2.6)
[2019-03-06 11:51] LABS: BUN/Creatinine Ratio 15.7
--- NOTE | 2019-03-06 12:24 | NUR ---
PACER DAVID [employer]ER [employer] AT CHAIRSIDE INTERROGATING PACER. A COUPLE OF EPISODES NOTED ON PACER POSSIBLE ATRIAL TACH SMALL RUNS OF VTACH. ADJUSTMENTS MADE TO PACER AND FOLLOW UP APPOINTMENTS MADE MD MAHARAJ UPDATED BY GREGORIO ALLEN
--- NOTE | 2019-03-06 12:40 | NUR ---
MEDS: PT. MEDICATED WITH VIT. B12 1000MCG IM LFT DELT. PER MD ORDER.
[2019-03-06 12:50] VITALS: BP 158/62
--- NOTE | 2019-03-06 12:50 | NUR ---
Discharge Instructions See e-MAR for any mediations given with this visit. Patient education given on disease process. Patient verbalized understanding. Previous labs reviewed. Patient discharged in stable condition with after care instructions and follow up appointment. MEDICATIONS DAVID CASTANON IV VITAMIN B12 IM VITAMIN D 3 SPRAY GIVEN Addendum: 03/14/19 at 1631 by ZAIDA ABRAHAM RN GA LATE ENTRY FOR 03/06/19 DAVID CASTANON [phone]
--- NOTE | 2019-03-06 12:50 | NUR ---
IV removal IV DC'd with sterile technique, catheter fully intact. Pressure dressing applied to site. Patient tolerated procedure well. Discharged with aftercare instructions per MD. NOTE: PT. INSTRUCTED TO TAKE HER TRIBENZOR TODAY WHEN SHE GETS HOME V.O. PER DR. MAHARAJ, AND CONTINUE HER REGULAR HYDRATION SCHEDULE. FOLLOW UP PRN.
== END | disposition home or self-care (01) ==
LOC: CHF HDHVI 08:22
PROVIDERS: ATTEND Internal Medicine Cardiovascular Disease
DX: E86.0 Dehydration (principal); D64.9 Anemia, unspecified; E83.40 Disorders of magnesium metabolism, unspecified; C91.10 Chronic lymphocytic leukemia of B-cell type not having achieved remission; I49.5 Sick sinus syndrome; I10 Essential (primary) hypertension; Z79.899 Other long term (current) drug therapy
CPT/HCPCS: 36415; 80048; 82306; 83036; 83735; 85007; 85027; 96365; 96366; 96372; G0463; J3411; J3420; J3475

== ENCOUNTER → 2019-05-18 | Outpatient (CLI) | payer MEDICARE, BC ==
[~2019-05-18] MED LIST changes: -CYANOCOBALAMIN (B-12) 1000 MCG/1 ML VIAL IM ONE; -CYANOCOBALAMIN (B-12) 1000 MCG/1 ML VIAL ONE; -FOLIC ACID 1 MG, MULTIPLE VITAMIN 10 ML, MAGNESIUM SULF SDV 50% 8 MEQ, THIAMINE INJ 100... INJ SCH; -METO25TA62 PO; +METO25TA93 PO; -MVI in SODIUM CHLORIDE 0.9% 1,000 ML IVB ONE; -MVI in SODIUM CHLORIDE 0.9% 1,010 ML ONE
[2019-05-18 11:55] LABS: Hemoglobin 11.5 g/dL (12.2-16.2); Mean Corpuscular Hemoglobin 35.5 pg (28.0-32.0); Mean Corpuscular Hgb Conc. 34.7 g/dL (32.0-36.0); Mean Corpuscular Volume 102.2 fL (80.0-100.0); Platelet Count (auto) 62 10^3/uL (140-450); Red Blood Cells 3.23 10^6/uL (4.0-5.20); Red Cell Distribution Width 14.5 % (11.8-14.3)
[2019-05-18 12:00] LABS: Basophils % (manual) 0 (0.0-2.0); Blast Cells 0; Eosinophils % (manual) 0 (0-7); Metamyelocytes % 0; Myelocytes % 0; Promyelocytes % 0; Reactive Lymphocytes 0
[2019-05-18 12:02] LABS: Albumin 3.6 g/dL (3.4-5.0); Calcium 9.5 mg/dL (8.5-10.1); Potassium 3.7 mmol/L (3.5-5.1)
[2019-05-18 12:06] LABS: BUN/Creatinine Ratio 17.6; Bilirubin, Total 0.7 mg/dL (0.2-1.0); Total Protein 8.2 g/dL (6.4-8.2)
[2019-05-18 12:57] LABS: Band Neutrophils % (manual) 2; Lymphocytes % (manual) 18 (10.0-50.0); Monocytes % (manual) 22 (0-12)
== END | disposition home or self-care (01) ==
LOC: LAB 07:59
PROVIDERS: ATTEND Internal Medicine Cardiovascular Disease
DX: D69.6 Thrombocytopenia, unspecified (principal); R59.0 Localized enlarged lymph nodes; C44.310 Basal cell carcinoma of skin of unspecified parts of face; D46.9 Myelodysplastic syndrome, unspecified
CPT/HCPCS: 36415; 80053; 83615; 85007; 85027

== ENCOUNTER → 2019-06-05 | Outpatient (CLI) | payer MEDICARE, BC ==
[~2019-06-05] MED LIST changes: +READI-CAT 2 (BARIUM SULF)(VANILLA SMOOTHIE) 450ML ONE
== END | disposition home or self-care (01) ==
LOC: Rad HDHVI 08:54
PROVIDERS: ATTEND Internal Medicine Cardiovascular Disease
DX: K44.9 Diaphragmatic hernia without obstruction or gangrene (principal); K80.20 Calculus of gallbladder without cholecystitis without obstruction
CPT/HCPCS: 74176

== ENCOUNTER → 2019-10-31 | Outpatient (CLI) | payer MEDICARE, BC ==
[~2019-10-31] VITALS: Ht 167.6 cm; Wt 72.6 kg
[~2019-10-31] MED LIST changes: +ADENOSINE 61 MG in GIVE UN-DILUTED 0 ML IV ONE; +ADENOSINE 90 MG/30 ML INJ IV ONE; -READI-CAT 2 (BARIUM SULF)(VANILLA SMOOTHIE) 450ML ONE
== END | disposition home or self-care (01) ==
LOC: Rad HDHVI 08:58
PROVIDERS: ATTEND Internal Medicine Cardiovascular Disease
DX: I10 Essential (primary) hypertension (principal); Z95.0 Presence of cardiac pacemaker; Z82.49 Family history of ischemic heart disease and other diseases of the circulatory system
CPT/HCPCS: 78452; 93005; 96374; 96375; A9500; J0153

== ENCOUNTER → 2019-11-01 | Outpatient (CLI) | payer MEDICARE, BC ==
[~2019-11-01] MED LIST changes: -ADENOSINE 61 MG in GIVE UN-DILUTED 0 ML IV ONE; -ADENOSINE 90 MG/30 ML INJ IV ONE
[2019-11-01 12:29] LABS: Urine Blood TRACE /uL (Negative); Urine Specific Gravity 1.026 (1.001-1.035)
[2019-11-01 12:30] LABS: Hematocrit 37.8 % (36.0-46.0); Hemoglobin 12.7 g/dL (12.2-16.2); Mean Corpuscular Hemoglobin 34.2 pg (28.0-32.0); Mean Corpuscular Hgb Conc. 33.7 g/dL (32.0-36.0); Mean Corpuscular Volume 101.4 fL (80.0-100.0); Platelet Count (auto) 65 10^3/uL (140-450); Red Blood Cells 3.73 10^6/uL (4.0-5.20); Red Cell Distribution Width 14.3 % (11.8-14.3)
[2019-11-01 12:34] LABS: Basophils % (manual) 0 (0.0-2.0); Blast Cells 0; Metamyelocytes % 0; Myelocytes % 0; Promyelocytes % 0
[2019-11-01 12:50] LABS: Potassium 3.6 mmol/L (3.5-5.1)
[2019-11-01 12:53] LABS: Free T4 (Free Thyroxine) 1.1 ng/dL (0.89-1.76)
[2019-11-01 13:05] LABS: Bilirubin, Total 0.7 mg/dL (0.2-1.0); Calcium 9.3 mg/dL (8.5-10.1); Total Protein 8.4 g/dL (6.4-8.2)
[2019-11-01 13:30] LABS: Band Neutrophils % (manual) 1; Eosinophils % (manual) 1 (0-7); Lymphocytes % (manual) 37 (10.0-50.0); Monocytes % (manual) 30 (0-12); Reactive Lymphocytes 1
== END | disposition home or self-care (01) ==
LOC: LAB 07:49
PROVIDERS: ATTEND Internal Medicine Cardiovascular Disease
DX: E03.9 Hypothyroidism, unspecified (principal); K90.9 Intestinal malabsorption, unspecified; N39.0 Urinary tract infection, site not specified; D51.9 Vitamin B12 deficiency anemia, unspecified; C44.310 Basal cell carcinoma of skin of unspecified parts of face; R59.0 Localized enlarged lymph nodes; Z00.00 Encounter for general adult medical examination without abnormal findings; Z79.899 Other long term (current) drug therapy
CPT/HCPCS: 36415; 80053; 80061; 81003; 82306; 82607; 83036; 83615; 84439; 84443; 85007; 85027

== ENCOUNTER → 2019-11-03 | Outpatient (CLI) | payer MEDICARE, BC | END | disposition home or self-care (01) | LOC: Rad HDHVI 08:49 | PROVIDERS: ATTEND Internal Medicine Cardiovascular Disease | DX: R06.02 Shortness of breath (principal); R07.89 Other chest pain; Z95.0 Presence of cardiac pacemaker | CPT/HCPCS: 93306 ==

== ENCOUNTER → 2020-01-23 | Outpatient (CLI) | payer MEDICARE, BC ==
[2020-01-23 12:09] LABS: Mean Corpuscular Hgb Conc. 34.6 g/dL (32.0-36.0)
[2020-01-23 12:12] LABS: Hemoglobin 12.4 g/dL (12.2-16.2); Mean Corpuscular Hemoglobin 34.5 pg (28.0-32.0); Mean Corpuscular Volume 99.7 fL (80.0-100.0); Platelet Count (auto) 59 10^3/uL (140-450); Red Blood Cells 3.61 10^6/uL (4.0-5.20); Red Cell Distribution Width 14.1 % (11.8-14.3); White Blood Cell 5.2 10^3/uL (4.4-10.8)
[2020-01-23 12:18] LABS: % Iron Saturation 20.2 % (15-50); Calcium 9.3 mg/dL (8.5-10.1); Magnesium 2.5 mg/dL (1.6-2.6); Potassium 3.8 mmol/L (3.5-5.1)
[2020-01-23 12:24] LABS: Basophils % (manual) 0 (0.0-2.0); Blast Cells 0; Myelocytes % 0; Promyelocytes % 0; Reactive Lymphocytes 0
[2020-01-23 12:26] LABS: BUN/Creatinine Ratio 23.1; Bilirubin, Total 0.7 mg/dL (0.2-1.0); Phosphorus 3.8 mg/dL (2.5-4.90); Total Protein 8.2 g/dL (6.4-8.2)
[2020-01-23 12:45] LABS: Band Neutrophils % (manual) 3; Eosinophils % (manual) 1 (0-7); Lymphocytes % (manual) 38 (10.0-50.0); Metamyelocytes % 2; Monocytes % (manual) 15 (0-12)
== END | disposition home or self-care (01) ==
LOC: LAB 10:05
PROVIDERS: ATTEND Internal Medicine Cardiovascular Disease
DX: C44.310 Basal cell carcinoma of skin of unspecified parts of face (principal); R59.0 Localized enlarged lymph nodes; D69.6 Thrombocytopenia, unspecified; D46.9 Myelodysplastic syndrome, unspecified; D51.9 Vitamin B12 deficiency anemia, unspecified; E83.42 Hypomagnesemia
CPT/HCPCS: 36415; 80053; 82728; 83540; 83550; 83735; 84100; 85007; 85027

== ENCOUNTER → 2020-04-08 | Outpatient (CLI) | payer MEDICARE, BC ==
[2020-04-08 12:01] LABS: Mean Corpuscular Hgb Conc. 34.2 g/dL (32.0-36.0); Red Blood Cells 3.32 10^6/uL (4.0-5.20); White Blood Cell 5.4 10^3/uL (4.4-10.8)
[2020-04-08 12:04] LABS: Hematocrit 33.6 % (36.0-46.0); Hemoglobin 11.5 g/dL (12.2-16.2); Mean Corpuscular Hemoglobin 34.6 pg (28.0-32.0); Mean Corpuscular Volume 101.3 fL (80.0-100.0); Platelet Count (auto) 55 10^3/uL (140-450); Red Cell Distribution Width 14.9 % (11.8-14.3)
[2020-04-08 12:21] LABS: Basophils % (manual) 0 (0.0-2.0); Metamyelocytes % 0; Myelocytes % 0; Promyelocytes % 0; Reactive Lymphocytes 0
[2020-04-08 12:56] LABS: Albumin 3.5 g/dL (3.4-5.0); BUN/Creatinine Ratio 15.3; Band Neutrophils % (manual) 1; Bilirubin, Total 0.5 mg/dL (0.2-1.0); Blast Cells 1; Calcium 9.3 mg/dL (8.5-10.1); Eosinophils % (manual) 1 (0-7); Lymphocytes % (manual) 30 (10.0-50.0); Monocytes % (manual) 27 (0-12); Potassium 3.5 mmol/L (3.5-5.1); Total Protein 7.7 g/dL (6.4-8.2)
[2020-04-08 14:06] LABS: % Iron Saturation 25.2 % (15-50)
== END | disposition home or self-care (01) ==
LOC: LAB 08:38
PROVIDERS: ATTEND Internal Medicine Cardiovascular Disease
DX: C44.310 Basal cell carcinoma of skin of unspecified parts of face (principal); R59.0 Localized enlarged lymph nodes; D69.6 Thrombocytopenia, unspecified; D46.9 Myelodysplastic syndrome, unspecified
CPT/HCPCS: 36415; 80053; 82232; 82784; 83540; 83550; 83615; 83883; 85007; 85027; 85652

== ENCOUNTER → 2020-07-30 | Outpatient (CLI) | payer MEDICARE, BC ==
[2020-07-30 12:39] LABS: Hemoglobin 11.8 g/dL (12.2-16.2); Mean Corpuscular Volume 101.3 fL (80.0-100.0); White Blood Cell 4.8 10^3/uL (4.4-10.8)
[2020-07-30 12:42] LABS: Hematocrit 33.9 % (36.0-46.0); Mean Corpuscular Hemoglobin 35.4 pg (28.0-32.0); Mean Corpuscular Hgb Conc. 34.9 g/dL (32.0-36.0); Platelet Count (auto) 54 10^3/uL (140-450); Red Blood Cells 3.34 10^6/uL (4.0-5.20); Red Cell Distribution Width 13.8 % (11.8-14.3)
[2020-07-30 12:49] LABS: Basophils % (manual) 0 (0.0-2.0); Blast Cells 0; Myelocytes % 0; Promyelocytes % 0; Reactive Lymphocytes 0
[2020-07-30 13:02] LABS: Albumin 3.5 g/dL (3.4-5.0); BUN/Creatinine Ratio 15.7; Calcium 8.9 mg/dL (8.5-10.1); Potassium 3.6 mmol/L (3.5-5.1)
[2020-07-30 13:04] LABS: Bilirubin, Total 0.7 mg/dL (0.2-1.0)
[2020-07-30 13:22] LABS: Band Neutrophils % (manual) 2; Eosinophils % (manual) 1 (0-7); Lymphocytes % (manual) 36 (10.0-50.0); Metamyelocytes % 1; Monocytes % (manual) 31 (0-12)
== END | disposition home or self-care (01) ==
LOC: LAB 08:44
PROVIDERS: ATTEND Internal Medicine Cardiovascular Disease
DX: C44.310 Basal cell carcinoma of skin of unspecified parts of face (principal); D69.6 Thrombocytopenia, unspecified; D46.9 Myelodysplastic syndrome, unspecified; R59.0 Localized enlarged lymph nodes
CPT/HCPCS: 36415; 80053; 83615; 85007; 85027

== ENCOUNTER → 2020-09-13 | Outpatient (CLI) | payer MEDICARE, BC ==
[2020-09-13 12:11] LABS: Potassium 4.1 mmol/L (3.5-5.1)
[2020-09-13 12:16] LABS: BUN/Creatinine Ratio 19.1; Calcium 9.7 mg/dL (8.5-10.1); Magnesium 2.6 mg/dL (1.6-2.6)
== END | disposition home or self-care (01) ==
LOC: LAB 10:52
PROVIDERS: ATTEND Internal Medicine Cardiovascular Disease
DX: I10 Essential (primary) hypertension (principal); I49.9 Cardiac arrhythmia, unspecified
CPT/HCPCS: 36415; 80048; 83735

== ENCOUNTER → 2020-09-17 | Outpatient (CLI) | payer MEDICARE, BC | END | disposition home or self-care (01) | LOC: Rad HDHVI 09:45 | PROVIDERS: ATTEND Internal Medicine Cardiovascular Disease | DX: R07.89 Other chest pain (principal); R06.02 Shortness of breath | CPT/HCPCS: 93306 ==

== ENCOUNTER → 2020-10-02 | Outpatient (CLI) | payer MEDICARE, BC ==
[~2020-10-02] VITALS: Ht 167.6 cm; Wt 77.1 kg
[~2020-10-02] MED LIST changes: +ADENOSINE 65 MG in GIVE UN-DILUTED 0 ML IV ONE; +ADENOSINE 90 MG/30 ML INJ IV ONE
== END | disposition home or self-care (01) ==
LOC: Rad HDHVI 13:18
PROVIDERS: ATTEND Internal Medicine Cardiovascular Disease
DX: I11.0 Hypertensive heart disease with heart failure (principal); I50.43 Acute on chronic combined systolic (congestive) and diastolic (congestive) heart failure; I25.5 Ischemic cardiomyopathy; E78.5 Hyperlipidemia, unspecified; R07.89 Other chest pain; Z95.0 Presence of cardiac pacemaker; Z82.49 Family history of ischemic heart disease and other diseases of the circulatory system
CPT/HCPCS: 78452; 93005; 96374; 96375; A9500; J0153

== ENCOUNTER → 2020-11-19 | Outpatient (CLI) | payer MEDICARE, BC ==
[~2020-11-19] MED LIST changes: -ADENOSINE 65 MG in GIVE UN-DILUTED 0 ML IV ONE; -ADENOSINE 90 MG/30 ML INJ IV ONE
[2020-11-19 12:25] LABS: Calcium 9.2 mg/dL (8.5-10.1); Potassium 3.9 mmol/L (3.5-5.1)
[2020-11-19 12:29] LABS: BUN/Creatinine Ratio 10.8; Bilirubin, Total 0.6 mg/dL (0.2-1.0); Total Protein 8.3 g/dL (6.4-8.2)
[2020-11-19 12:31] LABS: Hemoglobin 11.9 g/dL (12.2-16.2); White Blood Cell 4.7 10^3/uL (4.4-10.8)
[2020-11-19 12:33] LABS: Mean Corpuscular Hemoglobin 35.4 pg (28.0-32.0); Mean Corpuscular Hgb Conc. 34.9 g/dL (32.0-36.0); Mean Corpuscular Volume 101.5 fL (80.0-100.0); Platelet Count (auto) 64 10^3/uL (140-450); Red Blood Cells 3.35 10^6/uL (4.0-5.20)
[2020-11-19 13:18] LABS: Basophils % (manual) 0 (0.0-2.0); Blast Cells 0; Metamyelocytes % 0; Myelocytes % 0; Promyelocytes % 0
[2020-11-19 13:22] LABS: Band Neutrophils % (manual) 1; Eosinophils % (manual) 2 (0-7); Lymphocytes % (manual) 29 (10.0-50.0); Monocytes % (manual) 36 (0-12); Reactive Lymphocytes 1
== END | disposition home or self-care (01) ==
LOC: CHF HDHVI 09:54
PROVIDERS: ATTEND Internal Medicine Cardiovascular Disease
DX: C44.310 Basal cell carcinoma of skin of unspecified parts of face (principal); R59.0 Localized enlarged lymph nodes; D46.9 Myelodysplastic syndrome, unspecified; D69.6 Thrombocytopenia, unspecified
CPT/HCPCS: 36415; 80053; 83615; 85007; 85027; 85049

== ENCOUNTER → 2021-06-17 | Outpatient (CLI) | payer MEDICARE, BC ==
[2021-06-17 09:29] LABS: Eosinophils % (manual) 0 (0-7)
[2021-06-17 09:30] LABS: Basophils % (manual) 0 (0.0-2.0); Blast Cells 0; Metamyelocytes % 0; Myelocytes % 0; Promyelocytes % 0; Reactive Lymphocytes 0
[2021-06-17 11:33] LABS: Hematocrit 30.1 % (36.0-46.0); Hemoglobin 10.2 g/dL (12.2-16.2); Mean Corpuscular Hgb Conc. 33.8 g/dL (32.0-36.0); Mean Corpuscular Volume 100.4 fL (80.0-100.0); Red Cell Distribution Width 15.4 % (11.8-14.3); White Blood Cell 4.2 10^3/uL (4.4-10.8)
[2021-06-17 11:53] LABS: BUN/Creatinine Ratio 17.3; Potassium 3.9 mmol/L (3.5-5.1)
[2021-06-17 11:54] LABS: Albumin 3.4 g/dL (3.4-5.0); Bilirubin, Total 0.5 mg/dL (0.2-1.0); Calcium 9.2 mg/dL (8.5-10.1); Total Protein 7.9 g/dL (6.4-8.2)
[2021-06-17 13:47] LABS: Band Neutrophils % (manual) 4; Lymphocytes % (manual) 20 (10.0-50.0); Monocytes % (manual) 27 (0-12)
== END | disposition home or self-care (01) ==
LOC: LAB 08:59
PROVIDERS: ATTEND Internal Medicine Cardiovascular Disease
DX: R59.0 Localized enlarged lymph nodes (principal)
CPT/HCPCS: 36415; 80053; 83615; 85007; 85027

== ENCOUNTER → 2021-07-01 | Outpatient (CLI) | payer MEDICARE, BC | END | disposition home or self-care (01) | LOC: Rad HDHVI 08:46 | PROVIDERS: ATTEND Internal Medicine Cardiovascular Disease | DX: J98.11 Atelectasis (principal); K44.9 Diaphragmatic hernia without obstruction or gangrene; M16.11 Unilateral primary osteoarthritis, right hip; M47.817 Spondylosis without myelopathy or radiculopathy, lumbosacral region; I70.0 Atherosclerosis of aorta; M25.78 Osteophyte, vertebrae | CPT/HCPCS: 71046; 72100 ==

== ENCOUNTER → 2021-07-03 | Outpatient (CLI) | payer MEDICARE, BC | END | disposition home or self-care (01) | LOC: Rad HDHVI 07:58 | PROVIDERS: ATTEND Internal Medicine Cardiovascular Disease | DX: I08.1 Rheumatic disorders of both mitral and tricuspid valves (principal) | CPT/HCPCS: 93306 ==

== ENCOUNTER → 2021-10-31 | Outpatient (CLI) | payer MEDICARE, BC ==
[~2021-10-31] MED LIST changes: +IOHEXOL 350 MG/ML 100ML IJ ONE; +READI-CAT 2 (BARIUM SULF)(VANILLA SMOOTHIE) 450ML ONE
[2021-10-31 10:12] VITALS: BP 169/79
[2021-10-31 11:17] LABS: Urine Blood Negative /uL (Negative); Urine Specific Gravity 1.018 (1.001-1.035)
[2021-10-31 11:56] VITALS: BP 160/68
== END | disposition home or self-care (01) ==
LOC: Rad HDHVI 10:07
PROVIDERS: ATTEND Internal Medicine Cardiovascular Disease
DX: K44.9 Diaphragmatic hernia without obstruction or gangrene (principal); R16.1 Splenomegaly, not elsewhere classified; I25.10 Atherosclerotic heart disease of native coronary artery without angina pectoris; J98.11 Atelectasis; M41.9 Scoliosis, unspecified; N93.9 Abnormal uterine and vaginal bleeding, unspecified; R94.4 Abnormal results of kidney function studies; N39.0 Urinary tract infection, site not specified
CPT/HCPCS: 36415; 74177; 81003; 82565; 84520; 87086; G0463; Q9967

== ENCOUNTER → 2022-01-05 | Outpatient (CLI) | payer MEDICARE, BC ==
[~2022-01-05] MED LIST changes: -IOHEXOL 350 MG/ML 100ML IJ ONE; -READI-CAT 2 (BARIUM SULF)(VANILLA SMOOTHIE) 450ML ONE
[2022-01-05 17:11] LABS: % Iron Saturation 21.2 % (15-50)
[2022-01-05 17:24] LABS: BUN/Creatinine Ratio 15.4; Calcium 9.6 mg/dL (8.5-10.1); Potassium 3.9 mmol/L (3.5-5.1)
[2022-01-05 18:00] LABS: INR 1.02 (0.9-1.15); Partial Thromboplastin Time 27.6 sec (24.6-33.4)
[2022-01-05 18:08] LABS: Hematocrit 34.7 % (36.0-46.0); Hemoglobin 11.1 g/dL (12.2-16.2); Mean Corpuscular Hemoglobin 33.1 pg (28.0-32.0); Mean Corpuscular Hgb Conc. 31.9 g/dL (32.0-36.0); Mean Corpuscular Volume 103.8 fL (80.0-100.0); Red Blood Cells 3.35 10^6/uL (4.0-5.20); Red Cell Distribution Width 15.4 % (11.8-14.3); White Blood Cell 3.3 10^3/uL (4.4-10.8)
[2022-01-05 18:37] LABS: Blast Cells 0; Promyelocytes % 0
[2022-01-05 19:16] LABS: Band Neutrophils % (manual) 3; Lymphocytes % (manual) 26 (10.0-50.0)
[2022-01-05 19:17] LABS: Basophils % (manual) 1 (0.0-2.0); Eosinophils % (manual) 2 (0-7); Metamyelocytes % 1; Monocytes % (manual) 26 (0-12); Myelocytes % 1; Reactive Lymphocytes 9
== END | disposition home or self-care (01) ==
LOC: LAB 09:18
PROVIDERS: ATTEND Internal Medicine Cardiovascular Disease
DX: I49.5 Sick sinus syndrome (principal); R79.1 Abnormal coagulation profile; I10 Essential (primary) hypertension
CPT/HCPCS: 36415; 80048; 83540; 83550; 85007; 85027; 85610; 85730

== ENCOUNTER → 2022-01-23 | Outpatient (CLI) | payer MEDICARE, BC ==
[2022-01-23 09:00] LABS: Basophils % (manual) 0 (0.0-2.0); Blast Cells 0; Eosinophils % (manual) 0 (0-7); Metamyelocytes % 0; Promyelocytes % 0; Reactive Lymphocytes 0
[2022-01-23 11:55] LABS: Hematocrit 36.2 % (36.0-46.0); Hemoglobin 11.8 g/dL (12.2-16.2); Mean Corpuscular Hemoglobin 33.5 pg (28.0-32.0); Mean Corpuscular Hgb Conc. 32.7 g/dL (32.0-36.0); Mean Corpuscular Volume 102.3 fL (80.0-100.0); Red Blood Cells 3.53 10^6/uL (4.0-5.20); Red Cell Distribution Width 15.3 % (11.8-14.3); White Blood Cell 8.1 10^3/uL (4.4-10.8)
[2022-01-23 13:02] LABS: Band Neutrophils % (manual) 1; Lymphocytes % (manual) 26 (10.0-50.0); Monocytes % (manual) 16 (0-12); Myelocytes % 1
[2022-01-23 13:15] LABS: Basophils % (manual) 0 (0.0-2.0); Blast Cells 0; Eosinophils % (manual) 0 (0-7); Metamyelocytes % 0; Promyelocytes % 0; Reactive Lymphocytes 0
[2022-01-23 13:21] LABS: Band Neutrophils % (manual) 1; Lymphocytes % (manual) 26 (10.0-50.0); Monocytes % (manual) 16 (0-12); Myelocytes % 1
== END | disposition home or self-care (01) ==
LOC: LAB 08:48
PROVIDERS: ATTEND Internal Medicine Cardiovascular Disease
DX: C91.10 Chronic lymphocytic leukemia of B-cell type not having achieved remission (principal)
CPT/HCPCS: 36415; 85007; 85025; 85027; 85049

== ENCOUNTER → 2022-02-20 | Outpatient (CLI) | payer MEDICARE, BC ==
[2022-02-20 16:36] LABS: Hematocrit 38.3 % (36.0-46.0); Hemoglobin 12.6 g/dL (12.2-16.2); Mean Corpuscular Hemoglobin 34.1 pg (28.0-32.0); Mean Corpuscular Volume 103.3 fL (80.0-100.0); Red Blood Cells 3.71 10^6/uL (4.0-5.20); Red Cell Distribution Width 16.4 % (11.8-14.3); White Blood Cell 8.5 10^3/uL (4.4-10.8)
[2022-02-20 17:17] LABS: Basophils % (manual) 0 (0.0-2.0); Blast Cells 0; Eosinophils % (manual) 0 (0-7); Metamyelocytes % 0; Myelocytes % 0; Promyelocytes % 0; Reactive Lymphocytes 0
[2022-02-20 18:10] LABS: Band Neutrophils % (manual) 1; Lymphocytes % (manual) 25 (10.0-50.0); Monocytes % (manual) 34 (0-12)
== END | disposition home or self-care (01) ==
LOC: LAB 08:24
PROVIDERS: ATTEND Internal Medicine Cardiovascular Disease
DX: C91.10 Chronic lymphocytic leukemia of B-cell type not having achieved remission (principal)
CPT/HCPCS: 36415; 85007; 85027

== ENCOUNTER → 2022-06-03 | Outpatient (CLI) | payer MEDICARE, BC ==
[2022-06-03 09:35] LABS: Eosinophils % (manual) 0 (0-7)
[2022-06-03 09:36] LABS: Basophils % (manual) 0 (0.0-2.0); Blast Cells 0; Metamyelocytes % 0; Myelocytes % 0; Promyelocytes % 0; Reactive Lymphocytes 0
[2022-06-03 11:21] LABS: Hematocrit 36.8 % (36.0-46.0); White Blood Cell 10.1 10^3/uL (4.4-10.8)
[2022-06-03 11:24] LABS: Hemoglobin 12.6 g/dL (12.2-16.2); Mean Corpuscular Hemoglobin 35.7 pg (28.0-32.0); Mean Corpuscular Hgb Conc. 34.3 g/dL (32.0-36.0); Mean Corpuscular Volume 103.9 fL (80.0-100.0); Red Blood Cells 3.54 10^6/uL (4.0-5.20); Red Cell Distribution Width 14.3 % (11.8-14.3)
[2022-06-03 13:58] LABS: Band Neutrophils % (manual) 1; Lymphocytes % (manual) 22 (10.0-50.0); Monocytes % (manual) 21 (0-12)
== END | disposition home or self-care (01) ==
LOC: LAB 09:21
PROVIDERS: ATTEND Internal Medicine Cardiovascular Disease
DX: D69.6 Thrombocytopenia, unspecified (principal)
CPT/HCPCS: 36415; 85007; 85027

== ENCOUNTER → 2022-06-25 | Outpatient (CLI) | payer MEDICARE, BC ==
[2022-06-25 11:31] LABS: Hematocrit 29.9 % (36.0-46.0); Hemoglobin 10.4 g/dL (12.2-16.2); Mean Corpuscular Volume 105.2 fL (80.0-100.0); Red Blood Cells 2.84 10^6/uL (4.0-5.20); White Blood Cell 3.7 10^3/uL (4.4-10.8)
[2022-06-25 11:33] LABS: Mean Corpuscular Hemoglobin 36.7 pg (28.0-32.0); Mean Corpuscular Hgb Conc. 34.9 g/dL (32.0-36.0); Red Cell Distribution Width 16.6 % (11.8-14.3)
[2022-06-25 11:40] LABS: Basophils % (manual) 0 (0.0-2.0); Blast Cells 0; Eosinophils % (manual) 0 (0-7); Metamyelocytes % 0; Myelocytes % 0; Promyelocytes % 0; Reactive Lymphocytes 0
[2022-06-25 11:47] LABS: Albumin 3.7 g/dL (3.4-5.0); Calcium 8.8 mg/dL (8.5-10.1); Potassium 3.7 mmol/L (3.5-5.1)
[2022-06-25 11:52] LABS: BUN/Creatinine Ratio 14.9; Bilirubin, Total 1.1 mg/dL (0.2-1.0); Total Protein 7.6 g/dL (6.4-8.2)
[2022-06-25 12:30] LABS: Band Neutrophils % (manual) 2; Lymphocytes % (manual) 46 (10.0-50.0); Monocytes % (manual) 26 (0-12)
== END | disposition home or self-care (01) ==
LOC: LAB 08:08
PROVIDERS: ATTEND Internal Medicine Cardiovascular Disease
DX: D69.6 Thrombocytopenia, unspecified (principal)
CPT/HCPCS: 36415; 80053; 83615; 85007; 85027

== ENCOUNTER → 2022-07-27 | Outpatient (CLI) | payer MEDICARE, BC | END | disposition home or self-care (01) | LOC: Rad HDHVI 08:40 | PROVIDERS: ATTEND Internal Medicine Cardiovascular Disease | DX: I08.1 Rheumatic disorders of both mitral and tricuspid valves (principal); R00.2 Palpitations; I10 Essential (primary) hypertension | CPT/HCPCS: 93306 ==

== ENCOUNTER → 2022-08-06 | Outpatient (CLI) | payer MEDICARE, BC | END | disposition home or self-care (01) | LOC: Rad HDHVI 08:44 | PROVIDERS: ATTEND Internal Medicine Cardiovascular Disease | DX: I10 Essential (primary) hypertension (principal) | CPT/HCPCS: 93880 ==

== ENCOUNTER → 2022-08-06 | Outpatient (CLI) | payer MEDICARE, BC ==
[2022-08-06 10:02] LABS: Hemoglobin 11.2 g/dL (12.2-16.2)
[2022-08-06 10:05] LABS: Hematocrit 32.2 % (36.0-46.0); Mean Corpuscular Hemoglobin 36.7 pg (28.0-32.0); Mean Corpuscular Hgb Conc. 34.9 g/dL (32.0-36.0); Mean Corpuscular Volume 105.3 fL (80.0-100.0); Red Blood Cells 3.05 10^6/uL (4.0-5.20); White Blood Cell 3.4 10^3/uL (4.4-10.8)
[2022-08-06 10:17] LABS: Basophils % (manual) 0 (0.0-2.0); Eosinophils % (manual) 0 (0-7); Metamyelocytes % 0; Myelocytes % 0; Promyelocytes % 0
[2022-08-06 10:35] LABS: Potassium 4.1 mmol/L (3.5-5.1)
[2022-08-06 10:46] LABS: Albumin 3.8 g/dL (3.4-5.0); BUN/Creatinine Ratio 23.7 (10.0-20.0); Bilirubin, Total 0.8 mg/dL (0.2-1.0); Calcium 9.7 mg/dL (8.5-10.1)
[2022-08-06 13:01] LABS: Band Neutrophils % (manual) 2; Blast Cells 4; Lymphocytes % (manual) 50 (10.0-50.0); Monocytes % (manual) 8 (0-12); Reactive Lymphocytes 3
== END | disposition home or self-care (01) ==
LOC: LAB 09:36
PROVIDERS: ATTEND Internal Medicine
DX: C44.310 Basal cell carcinoma of skin of unspecified parts of face (principal); D69.6 Thrombocytopenia, unspecified; D46.9 Myelodysplastic syndrome, unspecified; R59.0 Localized enlarged lymph nodes; Z88.8 Allergy status to other drugs, medicaments and biological substances
CPT/HCPCS: 36415; 80053; 83615; 85007; 85027

== ENCOUNTER → 2022-09-14 | Outpatient (CLI) | payer MEDICARE, BC ==
[2022-09-14 09:30] LABS: Hemoglobin 11.3 g/dL (12.2-16.2)
[2022-09-14 09:33] LABS: Hematocrit 32.4 % (36.0-46.0); Mean Corpuscular Hemoglobin 36.4 pg (28.0-32.0); Mean Corpuscular Hgb Conc. 34.9 g/dL (32.0-36.0); Mean Corpuscular Volume 104.2 fL (80.0-100.0); Red Blood Cells 3.11 10^6/uL (4.0-5.20); Red Cell Distribution Width 14.6 % (11.8-14.3); White Blood Cell 4.3 10^3/uL (4.4-10.8)
[2022-09-14 09:58] LABS: % Iron Saturation 23.8 % (15-50)
[2022-09-14 10:01] LABS: Albumin 3.8 g/dL (3.4-5.0); Potassium 3.6 mmol/L (3.5-5.1)
[2022-09-14 10:05] LABS: BUN/Creatinine Ratio 18.8 (10.0-20.0); Bilirubin, Total 0.9 mg/dL (0.2-1.0); Total Protein 7.3 g/dL (6.4-8.2)
[2022-09-14 10:08] LABS: Ferritin 49.4 ng/mL (10-322); Folate (Folic Acid) 15.79 ng/mL (5.38-24)
[2022-09-14 10:51] LABS: Basophils % (manual) 0 (0.0-2.0); Blast Cells 0; Eosinophils % (manual) 0 (0-7); Metamyelocytes % 0; Myelocytes % 0; Promyelocytes % 0; Reactive Lymphocytes 0
[2022-09-14 10:54] LABS: Band Neutrophils % (manual) 4; Lymphocytes % (manual) 43 (10.0-50.0); Monocytes % (manual) 25 (0-12)
== END | disposition home or self-care (01) ==
LOC: LAB 09:09
PROVIDERS: ATTEND Internal Medicine
DX: C44.310 Basal cell carcinoma of skin of unspecified parts of face (principal); R59.0 Localized enlarged lymph nodes; D69.6 Thrombocytopenia, unspecified; D46.9 Myelodysplastic syndrome, unspecified
CPT/HCPCS: 36415; 80053; 82607; 82728; 82746; 83540; 83550; 83615; 85007; 85027

== ENCOUNTER → 2022-10-30 | Outpatient (CLI) | payer MEDICARE, BC ==
[~2022-10-30] MED LIST changes: +ALBU2TAB11 IN; -ALBU2TAB4 IN; +OLME-49 PO; -OLMETAB9 PO
[2022-10-30 11:08] LABS: Hemoglobin 10.4 g/dL (12.2-16.2)
[2022-10-30 11:10] LABS: Hematocrit 29.9 % (36.0-46.0); Mean Corpuscular Hemoglobin 37.4 pg (28.0-32.0); Mean Corpuscular Hgb Conc. 34.7 g/dL (32.0-36.0); Mean Corpuscular Volume 107.8 fL (80.0-100.0); Red Blood Cells 2.77 10^6/uL (4.0-5.20); Red Cell Distribution Width 16.3 % (11.8-14.3); White Blood Cell 4.4 10^3/uL (4.4-10.8)
[2022-10-30 11:32] LABS: Albumin 3.4 g/dL (3.4-5.0); Calcium 8.9 mg/dL (8.5-10.1); Potassium 3.8 mmol/L (3.5-5.1)
[2022-10-30 11:36] LABS: BUN/Creatinine Ratio 27.9 (10.0-20.0); Bilirubin, Total 1.4 mg/dL (0.2-1.0); Total Protein 6.9 g/dL (6.4-8.2)
[2022-10-30 12:31] LABS: Basophils % (manual) 0 (0.0-2.0); Blast Cells 0; Eosinophils % (manual) 0 (0-7); Promyelocytes % 0; Reactive Lymphocytes 0
[2022-10-30 12:34] LABS: Band Neutrophils % (manual) 3; Lymphocytes % (manual) 39 (10.0-50.0); Metamyelocytes % 1; Monocytes % (manual) 24 (0-12); Myelocytes % 1
== END | disposition home or self-care (01) ==
LOC: LAB 10:41
PROVIDERS: ATTEND Internal Medicine
DX: C44.310 Basal cell carcinoma of skin of unspecified parts of face (principal); D69.6 Thrombocytopenia, unspecified; D46.9 Myelodysplastic syndrome, unspecified; R59.0 Localized enlarged lymph nodes
CPT/HCPCS: 36415; 80053; 83615; 85007; 85027

== ENCOUNTER 2022-11-02 04:57 | Inpatient (IN) | payer MEDICARE, BC ==
[~2022-11-02] VITALS: Ht 165.1 cm; Wt 78.6 kg
[2022-11-02] MEDS ORDERED: ONDANSETRON ODT 4 MG TAB PO ONE (05:15)
[2022-11-02 07:32] LABS: Hemoglobin 10.8 g/dL (12.2-16.2); White Blood Cell 5.8 10^3/uL (4.4-10.8)
[2022-11-02 07:36] LABS: Hematocrit 30.1 % (36.0-46.0); Mean Corpuscular Hemoglobin 38.2 pg (28.0-32.0); Mean Corpuscular Hgb Conc. 35.9 g/dL (32.0-36.0); Mean Corpuscular Volume 106.3 fL (80.0-100.0); Red Blood Cells 2.83 10^6/uL (4.0-5.20); Red Cell Distribution Width 15.7 % (11.8-14.3)
[2022-11-02 07:51] LABS: Albumin 3.6 g/dL (3.4-5.0); Calcium 8.7 mg/dL (8.5-10.1); Potassium 3.7 mmol/L (3.5-5.1)
[2022-11-02 07:54] LABS: BUN/Creatinine Ratio 19.5 (10.0-20.0)
[2022-11-02 07:56] LABS: Bilirubin, Total 1.4 mg/dL (0.2-1.0); Total Protein 7.4 g/dL (6.4-8.2)
[2022-11-02 08:03] LABS: Band Neutrophils % (manual) 0; Basophils % (manual) 0 (0.0-2.0); Blast Cells 0; Eosinophils % (manual) 0 (0-7); Metamyelocytes % 0; Myelocytes % 0; Promyelocytes % 0; Reactive Lymphocytes 0
[2022-11-02] MEDS: ENOXAPARIN SOD 80 MG/0.8ML SYRINGE SC ONE ×2 (08:19→09:11)
[2022-11-02 08:37] LABS: Urine Bacteria NONE SEEN /hpf (None Seen); Urine Blood Negative /uL (Negative); Urine Specific Gravity 1.012 (1.001-1.035); Urine WBC <1 /hpf (0 - 5)
[2022-11-02 09:09] LABS: Lymphocytes % (manual) 23 (10.0-50.0); Monocytes % (manual) 11 (0-12)
[2022-11-02] MEDS ORDERED: PANTOPRAZOLE 40 MG/10 ML VIAL INJ IV ONE (12:00)
[2022-11-02] MEDS ORDERED: ALBUTEROL SULF 2.5 MG/0.5ML(0.5%) NEB SOLN NEB PRN (12:00)
[2022-11-02] MEDS ORDERED: NITROGLYCERIN 0.4 MG SL TAB SL PRN (12:00)
[2022-11-02] MEDS ORDERED: ACETAMINOPHEN 325 MG TAB PO PRN (12:00)
[2022-11-02] MEDS ORDERED: ONDANSETRON HCL 4 MG/2 ML VIAL IV PRN (12:00)
[2022-11-02] MEDS ORDERED: MORPHINE SULFATE INJ 2 MG/ml SYRG IV PRN (12:00)
[2022-11-02] MEDS ORDERED: hydrALAZINE HCL 20 MG/ML VL IV PRN (12:00)
[2022-11-02 12:53] VITALS: BP 168/74
[2022-11-02] MEDS: SODIUM CHLORIDE 0.9% 1,000 ML IV SCH (13:44)
[2022-11-03] MEDS: SODIUM CHLORIDE 0.9% 1,000 ML IV SCH ×2 (01:20→18:11)
[2022-11-03 05:49] LABS: White Blood Cell 4.4 10^3/uL (4.4-10.8)
[2022-11-03 05:51] LABS: Hematocrit 26.1 % (36.0-46.0); Hemoglobin 9.3 g/dL (12.2-16.2); Mean Corpuscular Hemoglobin 38.3 pg (28.0-32.0); Mean Corpuscular Hgb Conc. 35.6 g/dL (32.0-36.0); Mean Corpuscular Volume 107.3 fL (80.0-100.0); Red Blood Cells 2.43 10^6/uL (4.0-5.20)
[2022-11-03 06:14] LABS: Albumin 3.1 g/dL (3.4-5.0); Calcium 8.3 mg/dL (8.5-10.1); Potassium 3.5 mmol/L (3.5-5.1)
[2022-11-03 06:18] LABS: BUN/Creatinine Ratio 17.6 (10.0-20.0); Bilirubin, Total 1.4 mg/dL (0.2-1.0); Total Protein 6.5 g/dL (6.4-8.2)
[2022-11-03 06:25] LABS: Band Neutrophils % (manual) 0; Basophils % (manual) 0 (0.0-2.0); Blast Cells 0; Eosinophils % (manual) 0 (0-7); Metamyelocytes % 0; Myelocytes % 0; Promyelocytes % 0; Reactive Lymphocytes 0
[2022-11-03 07:31] LABS: Lymphocytes % (manual) 32 (10.0-50.0); Monocytes % (manual) 21 (0-12)
[2022-11-03] MEDS: PANTOPRAZOLE 40 MG/10 ML VIAL INJ IV SCH (09:16)
[2022-11-03] MEDS: LOSARTAN POTASSIUM 50 MG TAB PO SCH (09:17)
[2022-11-03] MEDS: HCTZ 25 MG TAB PO SCH (09:17)
[2022-11-03] MEDS: amLODIPine BESYLATE 5 MG TAB PO SCH (09:18)
[2022-11-03 13:00] VITALS: BP 136/60
[2022-11-03] MEDS ORDERED: OLME1TAB5 PO (13:48)
[2022-11-03] MEDS ORDERED: FAMO20TA10 PO (13:48)
[2022-11-03] MEDS ORDERED: BACL10TA PO (13:48)
[2022-11-03] MEDS ORDERED: PRED10TA PO (13:48)
[2022-11-03 17:00] VITALS: BP 145/52
[2022-11-03 22:00] VITALS: BP 102/51
[2022-11-04] MEDS: SODIUM CHLORIDE 0.9% 1,000 ML IV SCH ×2 (04:00→17:20)
[2022-11-04 05:00] VITALS: BP 169/79
[2022-11-04 06:53] VITALS: BP 149/62
[2022-11-04 09:00] VITALS: BP 151/52
[2022-11-04] MEDS: amLODIPine BESYLATE 5 MG TAB PO SCH (09:15)
[2022-11-04] MEDS: LOSARTAN POTASSIUM 50 MG TAB PO SCH (09:16)
[2022-11-04] MEDS: HCTZ 25 MG TAB PO SCH (09:16)
[2022-11-04] MEDS: PANTOPRAZOLE 40 MG/10 ML VIAL INJ IV SCH (09:17)
[2022-11-04 13:00] VITALS: BP 157/60
[2022-11-04 17:00] VITALS: BP 140/96
[2022-11-04 22:00] VITALS: BP 144/58
[2022-11-05] VITALS (10 sets, daily range): BP systolic 123–160; BP diastolic 55–88
[2022-11-05 06:05] LABS: INR 1.07 (0.9-1.15); Partial Thromboplastin Time 25.1 sec (24.6-33.4)
[2022-11-05] MEDS: SODIUM CHLORIDE 0.9% 1,000 ML IV SCH (06:37)
[2022-11-05] MEDS: HCTZ 25 MG TAB PO SCH (08:31)
[2022-11-05] MEDS: amLODIPine BESYLATE 5 MG TAB PO SCH (08:32)
[2022-11-05] MEDS: LOSARTAN POTASSIUM 50 MG TAB PO SCH (08:33)
[2022-11-05] MEDS: PANTOPRAZOLE 40 MG/10 ML VIAL INJ IV SCH (08:37)
[2022-11-05] MEDS ORDERED: predniSONE 20 MG TAB PO SCH (10:00)
[2022-11-05] MEDS ORDERED: SODIUM CHL 0.9% 0 ML ONE (13:18)
[2022-11-05] MEDS ORDERED: ANGIOMAX 250 MG VIAL IV ONE (13:18)
[2022-11-05] MEDS ORDERED: MIDAZOLAM HCL 2MG/2ML 2ml VIAL (1mg/ml) ONE (13:20)
[2022-11-05] MEDS ORDERED: fentaNYL CITRATE 100 MCG/2 ML VL ONE (13:20)
== END 2022-11-05 18:00 | disposition home or self-care (01) | DRG 206 ==
LOC: ER 04:57 → TELE 11:51 → TELE-CENTR 11-03 13:46
PROVIDERS: ADMIT Nurse Practitioner Family; ATTEND Internal Medicine Cardiovascular Disease
PROC: 4A023N8 Measurement of Cardiac Sampling and Pressure, Bilateral, Percutaneous Approach (ICD-10-PCS; principal; 2022-11-05)
PROC: B211YZZ Fluoroscopy of Multiple Coronary Arteries using Other Contrast (ICD-10-PCS; 2022-11-05)
PROC: B215YZZ Fluoroscopy of Left Heart using Other Contrast (ICD-10-PCS; 2022-11-05)
PROC: B41FYZZ Fluoroscopy of Right Lower Extremity Arteries using Other Contrast (ICD-10-PCS; 2022-11-05)
DX: M94.0 Chondrocostal junction syndrome [Tietze] (principal); D69.3 Immune thrombocytopenic purpura; C91.10 Chronic lymphocytic leukemia of B-cell type not having achieved remission; K44.9 Diaphragmatic hernia without obstruction or gangrene; I12.9 Hypertensive chronic kidney disease with stage 1 through stage 4 chronic kidney disease, or unspecified chronic kidney disease; N18.9 Chronic kidney disease, unspecified; K21.9 Gastro-esophageal reflux disease without esophagitis; J45.909 Unspecified asthma, uncomplicated; D64.9 Anemia, unspecified; Z86.2 Personal history of diseases of the blood and blood-forming organs and certain disorders involving the immune mechanism; R91.8 Other nonspecific abnormal finding of lung field; F41.9 Anxiety disorder, unspecified; Z90.710 Acquired absence of both cervix and uterus; Z88.8 Allergy status to other drugs, medicaments and biological substances; Z91.018 Allergy to other foods; Z91.040 Latex allergy status; Z95.0 Presence of cardiac pacemaker; Z85.828 Personal history of other malignant neoplasm of skin; Z83.3 Family history of diabetes mellitus; R77.8 Other specified abnormalities of plasma proteins; Z80.3 Family history of malignant neoplasm of breast; Z80.6 Family history of leukemia; Z86.12 Personal history of poliomyelitis
CPT/HCPCS: 36415; 71046; 75710; 80053; 81001; 83605; 84484; 85007; 85027; 85610; 85730; 86850; 86900; 86901; 87040; 93005; 93460; 97110; 97163; 99152; C9113; G0378; J2250; Q0162

== ENCOUNTER → 2022-12-14 | Outpatient (CLI) | payer MEDICARE, BC ==
[~2022-12-14] MED LIST changes: +BACL10TA PO; +FAMO20TA10 PO; -METO25TA93 PO; -OLME-49 PO; +OLME1TAB5 PO; -PANT40TA2 PO; -PRE5T PO; +PRED10TA PO
[2022-12-14 09:16] LABS: Hemoglobin 9.5 g/dL (12.2-16.2); Mean Corpuscular Volume 110.9 fL (80.0-100.0)
[2022-12-14 09:18] LABS: Hematocrit 27.3 % (36.0-46.0); Mean Corpuscular Hemoglobin 38.5 pg (28.0-32.0); Mean Corpuscular Hgb Conc. 34.7 g/dL (32.0-36.0); Red Blood Cells 2.46 10^6/uL (4.0-5.20); Red Cell Distribution Width 16.6 % (11.8-14.3); White Blood Cell 4.4 10^3/uL (4.4-10.8)
[2022-12-14 09:24] LABS: Basophils % (manual) 0 (0.0-2.0); Blast Cells 0; Metamyelocytes % 0; Promyelocytes % 0; Reactive Lymphocytes 0
[2022-12-14 09:54] LABS: Band Neutrophils % (manual) 1; Eosinophils % (manual) 1 (0-7); Lymphocytes % (manual) 48 (10.0-50.0); Monocytes % (manual) 20 (0-12); Myelocytes % 1
== END | disposition home or self-care (01) ==
LOC: LAB 09:04
PROVIDERS: ATTEND Internal Medicine
DX: C44.310 Basal cell carcinoma of skin of unspecified parts of face (principal); R59.0 Localized enlarged lymph nodes; D46.9 Myelodysplastic syndrome, unspecified; D69.3 Immune thrombocytopenic purpura; Z88.8 Allergy status to other drugs, medicaments and biological substances
CPT/HCPCS: 36415; 85007; 85027

== ENCOUNTER → 2022-12-22 | Outpatient (CLI) | payer MEDICARE, BC ==
[2022-12-22 10:20] LABS: Hematocrit 30.3 % (36.0-46.0); Hemoglobin 10.3 g/dL (12.2-16.2); Mean Corpuscular Hgb Conc. 33.9 g/dL (32.0-36.0)
[2022-12-22 10:25] LABS: Mean Corpuscular Hemoglobin 37.4 pg (28.0-32.0); Mean Corpuscular Volume 110.6 fL (80.0-100.0); Red Blood Cells 2.74 10^6/uL (4.0-5.20); Red Cell Distribution Width 16.5 % (11.8-14.3)
[2022-12-22 11:32] LABS: Band Neutrophils % (manual) 0; Basophils % (manual) 0 (0.0-2.0); Blast Cells 0; Eosinophils % (manual) 0 (0-7); Metamyelocytes % 0; Myelocytes % 0; Promyelocytes % 0; Reactive Lymphocytes 0
[2022-12-22 16:27] LABS: Lymphocytes % (manual) 28 (10.0-50.0); Monocytes % (manual) 23 (0-12)
[2022-12-22 16:28] LABS: Anisocytosis Moderate; Macrocytosis Moderate; Platelet Estimate Decreased
== END | disposition home or self-care (01) ==
LOC: LAB 10:01
PROVIDERS: ATTEND Internal Medicine
DX: C44.310 Basal cell carcinoma of skin of unspecified parts of face (principal); D69.3 Immune thrombocytopenic purpura; D46.9 Myelodysplastic syndrome, unspecified; R59.0 Localized enlarged lymph nodes
CPT/HCPCS: 36415; 85007; 85027

== ENCOUNTER → 2022-12-29 | Outpatient (CLI) | payer MEDICARE, BC ==
[2022-12-29 09:15] LABS: Hemoglobin 10.3 g/dL (12.2-16.2); Mean Corpuscular Volume 110.4 fL (80.0-100.0)
[2022-12-29 09:17] LABS: Mean Corpuscular Hemoglobin 37.7 pg (28.0-32.0); Mean Corpuscular Hgb Conc. 34.1 g/dL (32.0-36.0); Red Blood Cells 2.72 10^6/uL (4.0-5.20); Red Cell Distribution Width 16.5 % (11.8-14.3)
[2022-12-29 09:44] LABS: Basophils % (manual) 0 (0.0-2.0); Blast Cells 0; Eosinophils % (manual) 0 (0-7); Myelocytes % 0; Promyelocytes % 0; Reactive Lymphocytes 0
[2022-12-29 12:52] LABS: Band Neutrophils % (manual) 2; Lymphocytes % (manual) 16 (10.0-50.0); Metamyelocytes % 4; Monocytes % (manual) 8 (0-12); Platelet Estimate Decreased
== END | disposition home or self-care (01) ==
LOC: LAB 08:56
PROVIDERS: ATTEND Internal Medicine
DX: C44.310 Basal cell carcinoma of skin of unspecified parts of face (principal); R59.0 Localized enlarged lymph nodes; D46.9 Myelodysplastic syndrome, unspecified; D69.3 Immune thrombocytopenic purpura
CPT/HCPCS: 36415; 85007; 85027

== ENCOUNTER → 2023-02-04 | Outpatient (CLI) | payer MEDICARE, BC ==
[2023-02-04 10:57] LABS: Hematocrit 27.4 % (36.0-46.0); Hemoglobin 9.6 g/dL (12.2-16.2); Mean Corpuscular Hemoglobin 37.3 pg (28.0-32.0); Mean Corpuscular Hgb Conc. 34.9 g/dL (32.0-36.0); Red Blood Cells 2.56 10^6/uL (4.0-5.20); White Blood Cell 4.1 10^3/uL (4.4-10.8)
[2023-02-04 10:59] LABS: Red Cell Distribution Width 15.6 % (11.8-14.3)
[2023-02-04 11:12] LABS: Basophils % (manual) 0 (0.0-2.0); Blast Cells 0; Metamyelocytes % 0; Myelocytes % 0; Promyelocytes % 0; Reactive Lymphocytes 0
[2023-02-04 12:47] LABS: Lymphocytes % (manual) 44 (10.0-50.0)
[2023-02-04 12:48] LABS: Band Neutrophils % (manual) 1; Eosinophils % (manual) 1 (0-7); Monocytes % (manual) 27 (0-12)
[2023-02-04 12:49] LABS: Anisocytosis Slight; Macrocytosis Slight; Platelet Estimate Markedly Decreased
== END | disposition home or self-care (01) ==
LOC: LAB 10:44
PROVIDERS: ATTEND Internal Medicine
DX: C44.310 Basal cell carcinoma of skin of unspecified parts of face (principal); D69.3 Immune thrombocytopenic purpura; D46.9 Myelodysplastic syndrome, unspecified; R59.0 Localized enlarged lymph nodes
CPT/HCPCS: 36415; 85007; 85027

== ENCOUNTER → 2023-02-18 | Outpatient (CLI) | payer MEDICARE, BC ==
[2023-02-18 12:57] LABS: Hemoglobin 10.6 g/dL (12.2-16.2)
[2023-02-18 12:59] LABS: Hematocrit 30.7 % (36.0-46.0); Mean Corpuscular Hgb Conc. 34.4 g/dL (32.0-36.0); Mean Corpuscular Volume 107.5 fL (80.0-100.0); Red Blood Cells 2.85 10^6/uL (4.0-5.20); White Blood Cell 8.1 10^3/uL (4.4-10.8)
[2023-02-18 13:31] LABS: Basophils % (manual) 0 (0.0-2.0); Blast Cells 0; Eosinophils % (manual) 0 (0-7); Metamyelocytes % 0; Myelocytes % 0; Promyelocytes % 0
[2023-02-18 14:19] LABS: Band Neutrophils % (manual) 2; Lymphocytes % (manual) 34 (10.0-50.0); Monocytes % (manual) 18 (0-12); Reactive Lymphocytes 1
[2023-02-18 14:21] LABS: Anisocytosis Slight; Platelet Estimate Markedly Decreased
[2023-02-18 14:23] LABS: Macrocytosis Slight
== END | disposition home or self-care (01) ==
LOC: LAB 12:45
PROVIDERS: ATTEND Internal Medicine
DX: C44.310 Basal cell carcinoma of skin of unspecified parts of face (principal); D46.9 Myelodysplastic syndrome, unspecified; D69.6 Thrombocytopenia, unspecified; R59.0 Localized enlarged lymph nodes; Z88.8 Allergy status to other drugs, medicaments and biological substances
CPT/HCPCS: 36415; 85007; 85027

== ENCOUNTER → 2023-02-25 | Outpatient (CLI) | payer MEDICARE, BC ==
[2023-02-25 12:58] LABS: Hemoglobin 10.2 g/dL (12.2-16.2); Mean Corpuscular Hemoglobin 37.3 pg (28.0-32.0); Mean Corpuscular Hgb Conc. 33.9 g/dL (32.0-36.0); Mean Corpuscular Volume 109.8 fL (80.0-100.0); Red Blood Cells 2.73 10^6/uL (4.0-5.20); Red Cell Distribution Width 15.7 % (11.8-14.3); White Blood Cell 4.2 10^3/uL (4.4-10.8)
[2023-02-25 13:02] LABS: Band Neutrophils % (manual) 0; Basophils % (manual) 0 (0.0-2.0); Eosinophils % (manual) 0 (0-7); Metamyelocytes % 0; Myelocytes % 0; Promyelocytes % 0; Reactive Lymphocytes 0
[2023-02-25 15:35] LABS: Blast Cells 1; Lymphocytes % (manual) 27 (10.0-50.0); Macrocytosis Moderate; Monocytes % (manual) 20 (0-12); Platelet Estimate Markedly Decreased
== END | disposition home or self-care (01) ==
LOC: LAB 12:36
PROVIDERS: ATTEND Internal Medicine
DX: C44.310 Basal cell carcinoma of skin of unspecified parts of face (principal); D69.6 Thrombocytopenia, unspecified; D64.9 Anemia, unspecified; R59.0 Localized enlarged lymph nodes
CPT/HCPCS: 36415; 85007; 85027; 85049

== ENCOUNTER → 2023-03-04 | Outpatient (CLI) | payer MEDICARE, BC ==
[2023-03-04 08:54] LABS: Hematocrit 28.5 % (36.0-46.0); Hemoglobin 9.7 g/dL (12.2-16.2); Mean Corpuscular Volume 108.6 fL (80.0-100.0); Red Blood Cells 2.62 10^6/uL (4.0-5.20); White Blood Cell 3.5 10^3/uL (4.4-10.8)
[2023-03-04 08:56] LABS: Red Cell Distribution Width 15.7 % (11.8-14.3)
[2023-03-04 09:06] LABS: Basophils % (manual) 0 (0.0-2.0); Blast Cells 0; Metamyelocytes % 0; Myelocytes % 0; Promyelocytes % 0; Reactive Lymphocytes 0
[2023-03-04 11:53] LABS: Band Neutrophils % (manual) 2; Eosinophils % (manual) 1 (0-7); Lymphocytes % (manual) 38 (10.0-50.0); Monocytes % (manual) 21 (0-12)
[2023-03-04 11:54] LABS: Platelet Estimate Decreased
== END | disposition home or self-care (01) ==
LOC: LAB 08:42
PROVIDERS: ATTEND Internal Medicine
DX: C44.310 Basal cell carcinoma of skin of unspecified parts of face (principal); D69.6 Thrombocytopenia, unspecified; D46.9 Myelodysplastic syndrome, unspecified; R59.0 Localized enlarged lymph nodes
CPT/HCPCS: 36415; 85007; 85027

== ENCOUNTER → 2023-03-11 | Outpatient (CLI) | payer MEDICARE, BC ==
[2023-03-11 09:25] LABS: Hematocrit 28.8 % (36.0-46.0); Hemoglobin 9.7 g/dL (12.2-16.2); Mean Corpuscular Hemoglobin 36.8 pg (28.0-32.0); Mean Corpuscular Hgb Conc. 33.8 g/dL (32.0-36.0); Mean Corpuscular Volume 108.9 fL (80.0-100.0); Red Blood Cells 2.64 10^6/uL (4.0-5.20); Red Cell Distribution Width 15.3 % (11.8-14.3); White Blood Cell 3.8 10^3/uL (4.4-10.8)
[2023-03-11 09:27] LABS: Band Neutrophils % (manual) 0; Basophils % (manual) 0 (0.0-2.0); Blast Cells 0; Metamyelocytes % 0; Myelocytes % 0; Promyelocytes % 0; Reactive Lymphocytes 0
[2023-03-11 09:48] LABS: Eosinophils % (manual) 1 (0-7); Lymphocytes % (manual) 39 (10.0-50.0); Monocytes % (manual) 26 (0-12); Platelet Estimate Decreased
== END | disposition home or self-care (01) ==
LOC: LAB 09:09
PROVIDERS: ATTEND Internal Medicine
DX: C44.310 Basal cell carcinoma of skin of unspecified parts of face (principal); D69.6 Thrombocytopenia, unspecified; R59.0 Localized enlarged lymph nodes; D46.9 Myelodysplastic syndrome, unspecified
CPT/HCPCS: 36415; 85007; 85027

== ENCOUNTER → 2023-03-18 | Outpatient (CLI) | payer MEDICARE, BC ==
[2023-03-18 09:15] LABS: Basophils # (auto) 0 10 ^3/uL (0-0.2); Eosinophils # (auto) 0.1 10 ^3/uL (0-0.8); Hematocrit 29.1 % (36.0-46.0); Monocytes # (auto) 0.8 10 ^3/uL (0-1.3); Neutrophils # (auto) 1.6 10 ^3/uL (1.6-8.6); White Blood Cell 4.4 10^3/uL (4.4-10.8)
[2023-03-18 09:17] LABS: Basophils % (auto) 0.3 % (0.0-2.0); Eosinophils % (auto) 2.1 % (0.0-7.0); Hemoglobin 9.6 g/dL (12.2-16.2); Lymphocytes % (auto) 44.2 % (10.0-50.0); Monocytes % (auto) 17.9 % (0.0-12.0); Neutrophils % (auto) 35.5 % (37.0-80.0); Nucleated Red Blood Cells % 0.1 %; Red Blood Cells 2.67 10^6/uL (4.0-5.20); Red Cell Distribution Width 15.8 % (11.8-14.3)
== END | disposition home or self-care (01) ==
LOC: LAB 09:04
PROVIDERS: ATTEND Internal Medicine
DX: C44.310 Basal cell carcinoma of skin of unspecified parts of face (principal); D69.6 Thrombocytopenia, unspecified; R59.0 Localized enlarged lymph nodes; D46.9 Myelodysplastic syndrome, unspecified; Z88.8 Allergy status to other drugs, medicaments and biological substances
CPT/HCPCS: 36415; 85025

== ENCOUNTER → 2023-03-25 | Outpatient (CLI) | payer MEDICARE, BC ==
[2023-03-25 12:52] LABS: Hematocrit 29.6 % (36.0-46.0); Hemoglobin 9.8 g/dL (12.2-16.2); Mean Corpuscular Hemoglobin 36.1 pg (28.0-32.0); Mean Corpuscular Hgb Conc. 33.2 g/dL (32.0-36.0); Red Blood Cells 2.72 10^6/uL (4.0-5.20); Red Cell Distribution Width 15.8 % (11.8-14.3); White Blood Cell 3.9 10^3/uL (4.4-10.8)
[2023-03-25 12:53] LABS: Band Neutrophils % (manual) 0; Basophils % (manual) 0 (0.0-2.0); Blast Cells 0; Metamyelocytes % 0; Myelocytes % 0; Promyelocytes % 0; Reactive Lymphocytes 0
[2023-03-25 13:14] LABS: Eosinophils % (manual) 5 (0-7); Lymphocytes % (manual) 35 (10.0-50.0); Monocytes % (manual) 18 (0-12)
[2023-03-25 13:19] LABS: Platelet Estimate Decreased
== END | disposition home or self-care (01) ==
LOC: LAB 12:38
PROVIDERS: ATTEND Internal Medicine
DX: C44.310 Basal cell carcinoma of skin of unspecified parts of face (principal); D69.6 Thrombocytopenia, unspecified; D46.9 Myelodysplastic syndrome, unspecified; R59.0 Localized enlarged lymph nodes
CPT/HCPCS: 36415; 85007; 85027

== ENCOUNTER → 2023-04-01 | Outpatient (CLI) | payer MEDICARE, BC ==
[2023-04-01 09:57] LABS: Mean Corpuscular Hemoglobin 36.3 pg (28.0-32.0); Mean Corpuscular Hgb Conc. 33.6 g/dL (32.0-36.0)
[2023-04-01 09:59] LABS: Hematocrit 28.1 % (36.0-46.0); Hemoglobin 9.4 g/dL (12.2-16.2); Mean Corpuscular Volume 107.9 fL (80.0-100.0); Red Cell Distribution Width 15.5 % (11.8-14.3); White Blood Cell 4.3 10^3/uL (4.4-10.8)
[2023-04-01 10:03] LABS: Basophils % (manual) 0 (0.0-2.0); Blast Cells 0; Promyelocytes % 0; Reactive Lymphocytes 0
[2023-04-01 10:35] LABS: Band Neutrophils % (manual) 11; Eosinophils % (manual) 1 (0-7); Lymphocytes % (manual) 31 (10.0-50.0); Metamyelocytes % 10; Monocytes % (manual) 3 (0-12); Myelocytes % 8
[2023-04-01 10:38] LABS: Macrocytosis Moderate; Platelet Estimate Decreased
== END | disposition home or self-care (01) ==
LOC: LAB 09:45
PROVIDERS: ATTEND Internal Medicine
DX: C44.310 Basal cell carcinoma of skin of unspecified parts of face (principal); D49.6 Neoplasm of unspecified behavior of brain; D69.6 Thrombocytopenia, unspecified; R59.0 Localized enlarged lymph nodes
CPT/HCPCS: 36415; 85007; 85027

== ENCOUNTER → 2023-04-07 | Outpatient (CLI) | payer MEDICARE, BC ==
[2023-04-07 09:02] LABS: Hemoglobin 9.7 g/dL (12.2-16.2); Red Cell Distribution Width 15.3 % (11.8-14.3); White Blood Cell 3.6 10^3/uL (4.4-10.8)
[2023-04-07 09:04] LABS: Mean Corpuscular Hemoglobin 37.5 pg (28.0-32.0); Mean Corpuscular Hgb Conc. 34.8 g/dL (32.0-36.0); Mean Corpuscular Volume 107.8 fL (80.0-100.0)
[2023-04-07 09:33] LABS: Band Neutrophils % (manual) 0; Basophils % (manual) 0 (0.0-2.0); Blast Cells 0; Metamyelocytes % 0; Myelocytes % 0; Promyelocytes % 0; Reactive Lymphocytes 0
[2023-04-07 12:42] LABS: Eosinophils % (manual) 1 (0-7); Lymphocytes % (manual) 37 (10.0-50.0); Monocytes % (manual) 27 (0-12)
[2023-04-07 12:43] LABS: Platelet Estimate Decreased
== END | disposition home or self-care (01) ==
LOC: LAB 08:42
PROVIDERS: ATTEND Internal Medicine
DX: C44.310 Basal cell carcinoma of skin of unspecified parts of face (principal); D69.3 Immune thrombocytopenic purpura; D46.9 Myelodysplastic syndrome, unspecified; R59.0 Localized enlarged lymph nodes
CPT/HCPCS: 36415; 85007; 85027

== ENCOUNTER → 2023-04-15 | Outpatient (CLI) | payer MEDICARE, BC ==
[2023-04-15 10:09] LABS: Hemoglobin 9.9 g/dL (12.2-16.2); Mean Corpuscular Hemoglobin 36.1 pg (28.0-32.0); Mean Corpuscular Hgb Conc. 33.8 g/dL (32.0-36.0); White Blood Cell 4.1 10^3/uL (4.4-10.8)
[2023-04-15 10:11] LABS: Hematocrit 29.3 % (36.0-46.0); Mean Corpuscular Volume 106.8 fL (80.0-100.0); Red Blood Cells 2.74 10^6/uL (4.0-5.20); Red Cell Distribution Width 15.1 % (11.8-14.3)
[2023-04-15 10:18] LABS: Basophils % (manual) 0 (0.0-2.0); Blast Cells 0; Metamyelocytes % 0; Myelocytes % 0; Promyelocytes % 0
[2023-04-15 10:38] LABS: Band Neutrophils % (manual) 1; Eosinophils % (manual) 1 (0-7); Lymphocytes % (manual) 43 (10.0-50.0); Monocytes % (manual) 24 (0-12); Reactive Lymphocytes 1
[2023-04-15 10:40] LABS: Anisocytosis Slight; Macrocytosis Slight; Platelet Estimate Markedly Decreased
== END | disposition home or self-care (01) ==
LOC: LAB 09:39
PROVIDERS: ATTEND Internal Medicine
DX: R59.0 Localized enlarged lymph nodes (principal); C44.310 Basal cell carcinoma of skin of unspecified parts of face; D69.3 Immune thrombocytopenic purpura; D46.9 Myelodysplastic syndrome, unspecified
CPT/HCPCS: 36415; 85007; 85027

== ENCOUNTER → 2023-04-22 | Outpatient (CLI) | payer MEDICARE, BC ==
[2023-04-22 09:20] LABS: Hemoglobin 9.7 g/dL (12.2-16.2); Red Blood Cells 2.69 10^6/uL (4.0-5.20); White Blood Cell 4.2 10^3/uL (4.4-10.8)
[2023-04-22 09:21] LABS: Hematocrit 28.9 % (36.0-46.0); Mean Corpuscular Hemoglobin 36.1 pg (28.0-32.0); Mean Corpuscular Hgb Conc. 33.5 g/dL (32.0-36.0); Mean Corpuscular Volume 107.6 fL (80.0-100.0)
[2023-04-22 09:26] LABS: Band Neutrophils % (manual) 0; Basophils % (manual) 0 (0.0-2.0); Blast Cells 0; Metamyelocytes % 0; Myelocytes % 0; Promyelocytes % 0; Reactive Lymphocytes 0
[2023-04-22 10:44] LABS: Eosinophils % (manual) 2 (0-7); Lymphocytes % (manual) 46 (10.0-50.0); Monocytes % (manual) 14 (0-12); Platelet Estimate Decreased
== END | disposition home or self-care (01) ==
LOC: LAB 09:10
PROVIDERS: ATTEND Internal Medicine
DX: C44.310 Basal cell carcinoma of skin of unspecified parts of face (principal); D69.3 Immune thrombocytopenic purpura; D46.9 Myelodysplastic syndrome, unspecified; R59.0 Localized enlarged lymph nodes; Z88.8 Allergy status to other drugs, medicaments and biological substances
CPT/HCPCS: 36415; 85007; 85027

== ENCOUNTER → 2023-05-14 | Outpatient (CLI) | payer MEDICARE, BC ==
[2023-05-14 09:29] LABS: Hemoglobin 9.3 g/dL (12.2-16.2); Mean Corpuscular Hgb Conc. 33.3 g/dL (32.0-36.0); White Blood Cell 3.5 10^3/uL (4.4-10.8)
[2023-05-14 09:31] LABS: Mean Corpuscular Hemoglobin 35.9 pg (28.0-32.0); Mean Corpuscular Volume 107.7 fL (80.0-100.0); Red Cell Distribution Width 15.9 % (11.8-14.3)
[2023-05-14 10:07] LABS: Basophils % (manual) 0 (0.0-2.0); Blast Cells 0; Eosinophils % (manual) 0 (0-7); Promyelocytes % 0; Reactive Lymphocytes 0
[2023-05-14 10:11] LABS: Band Neutrophils % (manual) 8; Lymphocytes % (manual) 30 (10.0-50.0); Metamyelocytes % 10; Monocytes % (manual) 16 (0-12); Myelocytes % 4
[2023-05-14 10:12] LABS: Platelet Estimate Decreased
[2023-05-14 11:00] LABS: Ferritin 75.4 ng/mL (10-291)
[2023-05-14 11:01] LABS: Folate (Folic Acid) 17.21 ng/mL (>5.38)
== END | disposition home or self-care (01) ==
LOC: LAB 09:12
PROVIDERS: ATTEND Physician Assistant
DX: C44.310 Basal cell carcinoma of skin of unspecified parts of face (principal); D69.6 Thrombocytopenia, unspecified; D46.9 Myelodysplastic syndrome, unspecified; R59.0 Localized enlarged lymph nodes; Z88.8 Allergy status to other drugs, medicaments and biological substances; Z91.040 Latex allergy status
CPT/HCPCS: 36415; 82607; 82728; 82746; 83540; 85007; 85027

== ENCOUNTER → 2023-05-20 | Outpatient (CLI) | payer MEDICARE, BC ==
[2023-05-20 11:10] LABS: Hemoglobin 9.3 g/dL (12.2-16.2)
[2023-05-20 11:12] LABS: Hematocrit 27.1 % (36.0-46.0); Mean Corpuscular Hemoglobin 36.4 pg (28.0-32.0); Mean Corpuscular Hgb Conc. 34.3 g/dL (32.0-36.0); Mean Corpuscular Volume 106.4 fL (80.0-100.0); Red Blood Cells 2.54 10^6/uL (4.0-5.20); Red Cell Distribution Width 15.3 % (11.8-14.3); White Blood Cell 3.7 10^3/uL (4.4-10.8)
[2023-05-20 11:26] LABS: Band Neutrophils % (manual) 0; Basophils % (manual) 0 (0.0-2.0); Metamyelocytes % 0; Myelocytes % 0; Promyelocytes % 0; Reactive Lymphocytes 0
[2023-05-20 12:55] LABS: Blast Cells 2; Eosinophils % (manual) 2 (0-7); Lymphocytes % (manual) 45 (10.0-50.0); Macrocytosis Moderate; Monocytes % (manual) 23 (0-12); Platelet Estimate Decreased
== END | disposition home or self-care (01) ==
LOC: LAB 10:45
PROVIDERS: ATTEND Internal Medicine
DX: C44.310 Basal cell carcinoma of skin of unspecified parts of face (principal); R59.0 Localized enlarged lymph nodes; D69.3 Immune thrombocytopenic purpura; D46.9 Myelodysplastic syndrome, unspecified; Z88.8 Allergy status to other drugs, medicaments and biological substances
CPT/HCPCS: 36415; 85007; 85027

== ENCOUNTER → 2023-06-03 | Outpatient (CLI) | payer MEDICARE, BC ==
[2023-06-03 09:14] LABS: White Blood Cell 3.3 10^3/uL (4.4-10.8)
[2023-06-03 09:16] LABS: Hematocrit 26.5 % (36.0-46.0); Mean Corpuscular Hemoglobin 37.5 pg (28.0-32.0); Mean Corpuscular Hgb Conc. 34.2 g/dL (32.0-36.0); Mean Corpuscular Volume 109.8 fL (80.0-100.0); Red Blood Cells 2.41 10^6/uL (4.0-5.20); Red Cell Distribution Width 16.2 % (11.8-14.3)
[2023-06-03 09:56] LABS: Band Neutrophils % (manual) 0; Basophils % (manual) 0 (0.0-2.0); Blast Cells 0; Metamyelocytes % 0; Myelocytes % 0; Promyelocytes % 0; Reactive Lymphocytes 0
[2023-06-03 09:57] LABS: Eosinophils % (manual) 2 (0-7); Lymphocytes % (manual) 45 (10.0-50.0); Monocytes % (manual) 29 (0-12); Platelet Estimate Decreased
[2023-06-03 09:58] LABS: Macrocytosis Moderate
== END | disposition home or self-care (01) ==
LOC: LAB 09:03
PROVIDERS: ATTEND Internal Medicine
DX: C44.310 Basal cell carcinoma of skin of unspecified parts of face (principal); R59.0 Localized enlarged lymph nodes; D69.3 Immune thrombocytopenic purpura; D46.9 Myelodysplastic syndrome, unspecified
CPT/HCPCS: 36415; 85007; 85027

== ENCOUNTER → 2023-06-10 | Outpatient (CLI) | payer MEDICARE, BC ==
[2023-06-10 11:18] LABS: Hemoglobin 9.1 g/dL (12.2-16.2); White Blood Cell 3.3 10^3/uL (4.4-10.8)
[2023-06-10 11:20] LABS: Hematocrit 26.8 % (36.0-46.0); Mean Corpuscular Hemoglobin 36.7 pg (28.0-32.0); Mean Corpuscular Volume 107.7 fL (80.0-100.0); Red Blood Cells 2.49 10^6/uL (4.0-5.20)
[2023-06-10 11:24] LABS: Basophils % (manual) 0 (0.0-2.0); Blast Cells 0; Metamyelocytes % 0; Myelocytes % 0; Promyelocytes % 0
[2023-06-10 12:50] LABS: Band Neutrophils % (manual) 1; Lymphocytes % (manual) 44 (10.0-50.0)
[2023-06-10 12:51] LABS: Anisocytosis Slight; Eosinophils % (manual) 2 (0-7); Macrocytosis Slight; Monocytes % (manual) 20 (0-12); Reactive Lymphocytes 1
[2023-06-10 12:52] LABS: Platelet Estimate Markedly Decreased
== END | disposition home or self-care (01) ==
LOC: LAB 11:03
PROVIDERS: ATTEND Internal Medicine
DX: C44.310 Basal cell carcinoma of skin of unspecified parts of face (principal); D69.3 Immune thrombocytopenic purpura; D46.9 Myelodysplastic syndrome, unspecified; R59.0 Localized enlarged lymph nodes; Z88.8 Allergy status to other drugs, medicaments and biological substances
CPT/HCPCS: 36415; 85007; 85027

== ENCOUNTER → 2023-06-17 | Outpatient (CLI) | payer MEDICARE, BC ==
[2023-06-17 09:03] LABS: Hemoglobin 8.7 g/dL (12.2-16.2); White Blood Cell 3.1 10^3/uL (4.4-10.8)
[2023-06-17 09:05] LABS: Hematocrit 25.9 % (36.0-46.0); Mean Corpuscular Hemoglobin 36.2 pg (28.0-32.0); Mean Corpuscular Hgb Conc. 33.5 g/dL (32.0-36.0); Mean Corpuscular Volume 107.8 fL (80.0-100.0); Red Cell Distribution Width 16.2 % (11.8-14.3)
[2023-06-17 09:09] LABS: Basophils % (manual) 0 (0.0-2.0); Blast Cells 0; Eosinophils % (manual) 0 (0-7); Metamyelocytes % 0; Myelocytes % 0; Promyelocytes % 0; Reactive Lymphocytes 0
[2023-06-17 09:37] LABS: Band Neutrophils % (manual) 3; Lymphocytes % (manual) 54 (10.0-50.0); Monocytes % (manual) 7 (0-12); Platelet Estimate Decreased
== END | disposition home or self-care (01) ==
LOC: LAB 08:35
PROVIDERS: ATTEND Internal Medicine
DX: C64.9 Malignant neoplasm of unspecified kidney, except renal pelvis (principal); R59.0 Localized enlarged lymph nodes; C44.310 Basal cell carcinoma of skin of unspecified parts of face; D69.3 Immune thrombocytopenic purpura; D46.9 Myelodysplastic syndrome, unspecified
CPT/HCPCS: 36415; 85007; 85027

== ENCOUNTER → 2023-06-24 | Outpatient (CLI) | payer MEDICARE, BC ==
[2023-06-24 09:50] LABS: Hematocrit 26.5 % (36.0-46.0); Mean Corpuscular Hemoglobin 36.9 pg (28.0-32.0); Mean Corpuscular Hgb Conc. 34.1 g/dL (32.0-36.0); Red Blood Cells 2.45 10^6/uL (4.0-5.20); Red Cell Distribution Width 16.3 % (11.8-14.3)
[2023-06-24 10:09] LABS: Alanine Aminotransferase 12 U/L (7-40); Alkaline Phosphatase 69 U/L (46-116); Anion Gap 7 (5-15); BUN/Creatinine Ratio 13.8 (10.0-20.0); Blood Urea Nitrogen 12 mg/dL (9-23); Calcium 10.2 mg/dL (8.5-10.1); Carbon Dioxide 28 mmol/L (20-30); Chloride 104 mmol/L (98-107); Glucose 87 mg/dL (74-106); Potassium 3.9 mmol/L (3.5-5.1); Sodium 139 mmol/L (136-145)
[2023-06-24 10:10] LABS: Albumin 4.1 g/dL (3.2-4.8); Aspartate Aminotransferase 17 U/L (13-40)
[2023-06-24 10:11] LABS: Total Protein 7.5 g/dL (5.7-8.2)
[2023-06-24 10:24] LABS: Basophils % (manual) 0 (0.0-2.0); Metamyelocytes % 0; Myelocytes % 0; Promyelocytes % 0; Reactive Lymphocytes 0
[2023-06-24 11:38] LABS: Band Neutrophils % (manual) 4; Blast Cells 2; Eosinophils % (manual) 2 (0-7); Lymphocytes % (manual) 47 (10.0-50.0); Macrocytosis Moderate; Monocytes % (manual) 18 (0-12); Platelet Estimate MA
== END | disposition home or self-care (01) ==
LOC: LAB 09:08
PROVIDERS: ATTEND Internal Medicine
DX: C44.310 Basal cell carcinoma of skin of unspecified parts of face (principal); D69.3 Immune thrombocytopenic purpura; D46.9 Myelodysplastic syndrome, unspecified; R59.0 Localized enlarged lymph nodes
CPT/HCPCS: 36415; 80053; 83615; 85007; 85027

== ENCOUNTER → 2023-07-09 | Outpatient (CLI) | payer MEDICARE, BC ==
[2023-07-09 13:44] LABS: Basophils # (auto) 0 10 ^3/uL (0-0.2); Basophils % (auto) 0.1 % (0.0-2.0); Eosinophils # (auto) 0 10 ^3/uL (0-0.8); Eosinophils % (auto) 0.1 % (0.0-7.0); Hematocrit 28.7 % (36.0-46.0); Lymphocytes # (auto) 1.3 10 ^3/uL (0.4-5.4); Monocytes # (auto) 0.5 10 ^3/uL (0-1.3); Neutrophils # (auto) 3.5 10 ^3/uL (1.6-8.6); White Blood Cell 5.3 10^3/uL (4.4-10.8)
[2023-07-09 13:46] LABS: Hemoglobin 9.7 g/dL (12.2-16.2); Lymphocytes % (auto) 25.2 % (10.0-50.0); Mean Corpuscular Hemoglobin 36.5 pg (28.0-32.0); Mean Corpuscular Hgb Conc. 33.7 g/dL (32.0-36.0); Mean Corpuscular Volume 108.3 fL (80.0-100.0); Monocytes % (auto) 8.8 % (0.0-12.0); Neutrophils % (auto) 65.8 % (37.0-80.0); Red Blood Cells 2.65 10^6/uL (4.0-5.20); Red Cell Distribution Width 16.6 % (11.8-14.3)
[2023-07-09 14:12] LABS: Platelet Estimate Markedly Decreased
[2023-07-09 14:13] LABS: Macrocytosis Moderate
[2023-07-09 14:32] LABS: Albumin 4.2 g/dL (3.2-4.8); Alkaline Phosphatase 65 U/L (46-116); Anion Gap 4 (5-15); Aspartate Aminotransferase 10 U/L (13-40); BUN/Creatinine Ratio 17.1 (10.0-20.0); Bilirubin, Total 0.9 mg/dL (0.2-1.0); Blood Urea Nitrogen 14 mg/dL (9-23); Calcium 9.4 mg/dL (8.7-10.4); Carbon Dioxide 29 mmol/L (20-30); Chloride 103 mmol/L (98-107); Glucose 136 mg/dL (74-106); Sodium 136 mmol/L (136-145); Total Protein 7.5 g/dL (5.7-8.2)
[2023-07-09 14:34] LABS: Alanine Aminotransferase < 9 U/L (7-40)
== END | disposition home or self-care (01) ==
LOC: LAB 13:28
PROVIDERS: ATTEND Internal Medicine
DX: C44.310 Basal cell carcinoma of skin of unspecified parts of face (principal); D69.3 Immune thrombocytopenic purpura; D46.9 Myelodysplastic syndrome, unspecified; R59.0 Localized enlarged lymph nodes; Z88.8 Allergy status to other drugs, medicaments and biological substances
CPT/HCPCS: 36415; 80053; 85025

== ENCOUNTER 2023-07-13 12:33 | Inpatient (IN) | payer MEDICARE, BC ==
[~2023-07-13] VITALS: Ht 167.6 cm; Wt 75.0 kg
[2023-07-13 14:14] LABS: Chloride 103 mmol/L (98-107); Hemoglobin 9.3 g/dL (12.2-16.2); Potassium 3.8 mmol/L (3.5-5.1); Sodium 138 mmol/L (136-145); White Blood Cell 5.4 10^3/uL (4.4-10.8)
[2023-07-13 14:15] LABS: Anion Gap 7 (5-15); Calcium 10.1 mg/dL (8.5-10.1); Carbon Dioxide 28 mmol/L (20-30)
[2023-07-13 14:16] LABS: Hematocrit 28.1 % (36.0-46.0); Mean Corpuscular Hemoglobin 35.5 pg (28.0-32.0); Mean Corpuscular Hgb Conc. 33.1 g/dL (32.0-36.0); Mean Corpuscular Volume 107.2 fL (80.0-100.0); Red Blood Cells 2.62 10^6/uL (4.0-5.20); Red Cell Distribution Width 16.4 % (11.8-14.3)
[2023-07-13 14:20] LABS: BUN/Creatinine Ratio 18.3 (10.0-20.0); Blood Urea Nitrogen 17 mg/dL (9-23); Glucose 101 mg/dL (74-106)
[2023-07-13 14:27] LABS: Basophils % (manual) 0 (0.0-2.0); Blast Cells 0; Eosinophils % (manual) 0 (0-7); Metamyelocytes % 0; Myelocytes % 0; Promyelocytes % 0; Reactive Lymphocytes 0
[2023-07-13 14:59] LABS: Band Neutrophils % (manual) 3; Lymphocytes % (manual) 38 (10.0-50.0); Monocytes % (manual) 19 (0-12)
[2023-07-13 15:00] LABS: Platelet Estimate Markedly Decreased
[2023-07-13 15:01] LABS: Macrocytosis Slight
[2023-07-13 17:00] VITALS: PULSE 93; RESP 16; O2SAT 97
[2023-07-13 17:38] LABS: INR 1.11 (0.9-1.15); Partial Thromboplastin Time 28.5 SEC (24.5-34.5); Prothrombin Time 11.6 sec (9.3-11.8)
[2023-07-13 18:13] LABS: Erythrocyte Sedimentation Rate 40 mm/hr (0-20)
[2023-07-13 19:35] VITALS: PULSE 81; RESP 15; O2SAT 95
[2023-07-14] VITALS (15 sets, daily range): BP systolic 104–146; BP diastolic 34–64; PULSE 80–88; RESP 12–18; TEMP 98–98.7; O2SAT 93–98
[2023-07-14 06:26] LABS: Urine Bacteria FEW /hpf (None Seen); Urine Blood Negative /uL (Negative); Urine Clarity HAZY (Clear); Urine Color Yellow (Yellow); Urine Mucus FEW (None Seen); Urine Protein, UAD TRACE (Negative); Urine Specific Gravity 1.021 (1.001-1.035); Urine Urobilinogen Normal (Negative); Urine WBC 12 /hpf (0 - 5)
[2023-07-14 06:26] LABS: Calcium 9.4 mg/dL (8.5-10.1); Chloride 105 mmol/L (98-107); Potassium 3.6 mmol/L (3.5-5.1); Sodium 140 mmol/L (136-145)
[2023-07-14 06:27] LABS: Anion Gap 7 (5-15); Carbon Dioxide 28 mmol/L (20-30); Red Cell Distribution Width 16.4 % (11.8-14.3)
[2023-07-14 06:30] LABS: Hematocrit 23.4 % (36.0-46.0); Mean Corpuscular Volume 108.7 fL (80.0-100.0); Red Blood Cells 2.15 10^6/uL (4.0-5.20); White Blood Cell 4.3 10^3/uL (4.4-10.8)
[2023-07-14 06:32] LABS: Blood Urea Nitrogen 17 mg/dL (9-23); Glucose 96 mg/dL (74-106)
[2023-07-14 06:37] LABS: Band Neutrophils % (manual) 0; Basophils % (manual) 0 (0.0-2.0); Blast Cells 0; Eosinophils % (manual) 0 (0-7); Metamyelocytes % 0; Myelocytes % 0; Promyelocytes % 0; Reactive Lymphocytes 0
[2023-07-14 07:40] LABS: Magnesium 1.8 mg/dL (1.6-2.6)
[2023-07-14 07:44] LABS: Lymphocytes % (manual) 29 (10.0-50.0); Macrocytosis Moderate; Monocytes % (manual) 30 (0-12); Platelet Estimate Markedly Decreased
[2023-07-14] MEDS ORDERED: hydrALAZINE HCL 20 MG/ML VL IV PRN (08:00)
[2023-07-14] MEDS ORDERED: ONDANSETRON HCL 4 MG/2 ML VIAL IV PRN (08:00)
[2023-07-14] MEDS ORDERED: ALBUTEROL MEDNEB 2.5 mg/3ml NEB NEB PRN (08:00)
[2023-07-14] MEDS ORDERED: MORPHINE SULFATE INJ 2 MG/ml SYRG IV PRN (08:00)
[2023-07-14] MEDS ORDERED: LIDOCAINE 2%HCL (LOCAL ANESTH.) INJ 10ml MDV ONE (08:46)
[2023-07-14] MEDS ORDERED: POTASSIUM CHL 20 Meq TABLET PO SCH (09:00)
[2023-07-14] MEDS: FAMOTIDINE 20 MG TAB PO SCH (09:21)
[2023-07-14] MEDS: BACLOFEN 10 MG TAB PO SCH (09:21)
[2023-07-14] MEDS: MIDAZOLAM HCL 2MG/2ML 2ml VIAL (1mg/ml) IV ONE (09:25)
[2023-07-14] MEDS: fentaNYL CITRATE 100 MCG/2 ML VL IV ONE (09:25)
[2023-07-14] MEDS: cefTRIAXone 1GM/50ML D5W 50 ML IV ONE (10:17)
[2023-07-14 10:36] LABS: Hematocrit 25.8 % (36.0-46.0); Hemoglobin 8.6 g/dL (12.2-16.2); Mean Corpuscular Hemoglobin 36.4 pg (28.0-32.0); Mean Corpuscular Hgb Conc. 33.5 g/dL (32.0-36.0); Mean Corpuscular Volume 108.7 fL (80.0-100.0); Red Blood Cells 2.37 10^6/uL (4.0-5.20); Red Cell Distribution Width 16.6 % (11.8-14.3); White Blood Cell 3.3 10^3/uL (4.4-10.8)
[2023-07-14 10:39] LABS: Band Neutrophils % (manual) 0; Basophils % (manual) 0 (0.0-2.0); Blast Cells 0; Eosinophils % (manual) 0 (0-7); Metamyelocytes % 0; Myelocytes % 0; Promyelocytes % 0; Reactive Lymphocytes 0
[2023-07-14] MEDS: AMLO PO SCH (10:44)
[2023-07-14] MEDS: OLMESARTAN MEDOXOMIL PO SCH (10:44)
[2023-07-14 10:57] LABS: Lymphocytes % (manual) 41 (10.0-50.0); Macrocytosis Moderate; Monocytes % (manual) 19 (0-12); Platelet Estimate Decreased
[2023-07-15 05:00] VITALS: BP 109/49; PULSE 63; RESP 18; TEMP 98.3; O2SAT 91
[2023-07-15 07:08] LABS: Hemoglobin 7.5 g/dL (12.2-16.2); Red Blood Cells 2.06 10^6/uL (4.0-5.20)
[2023-07-15 07:11] LABS: Hematocrit 22.3 % (36.0-46.0); Mean Corpuscular Hemoglobin 36.5 pg (28.0-32.0); Mean Corpuscular Hgb Conc. 33.6 g/dL (32.0-36.0); Mean Corpuscular Volume 108.5 fL (80.0-100.0); Red Cell Distribution Width 16.4 % (11.8-14.3); White Blood Cell 2.8 10^3/uL (4.4-10.8)
[2023-07-15 07:18] LABS: Band Neutrophils % (manual) 0; Basophils % (manual) 0 (0.0-2.0); Blast Cells 0; Eosinophils % (manual) 0 (0-7); Metamyelocytes % 0; Myelocytes % 0; Promyelocytes % 0; Reactive Lymphocytes 0
[2023-07-15 07:20] LABS: Chloride 107 mmol/L (98-107); Potassium 3.4 mmol/L (3.5-5.1); Sodium 140 mmol/L (136-145)
[2023-07-15 07:21] LABS: Anion Gap 7 (5-15); Calcium 8.8 mg/dL (8.7-10.4); Carbon Dioxide 26 mmol/L (20-30)
[2023-07-15 07:26] LABS: Blood Urea Nitrogen 19 mg/dL (9-23); Glucose 90 mg/dL (74-106)
[2023-07-15 07:27] LABS: Magnesium 1.8 mg/dL (1.6-2.6)
[2023-07-15 08:12] LABS: Lymphocytes % (manual) 31 (10.0-50.0); Monocytes % (manual) 30 (0-12)
[2023-07-15 08:13] LABS: Platelet Estimate Decreased
[2023-07-15 09:00] VITALS: BP 126/52; PULSE 82; RESP 20; TEMP 98.1; O2SAT 95
[2023-07-15] MEDS: cefTRIAXone 1GM/50ML D5W 50 ML IV SCH (09:39)
[2023-07-15 12:08] VITALS: BP 126/52; PULSE 82; RESP 18; TEMP 98; O2SAT 95
[2023-07-15 13:00] VITALS: BP 140/47; PULSE 89; RESP 18; TEMP 97.9; O2SAT 93
[2023-07-15 15:15] VITALS: O2SAT 94
== END 2023-07-15 15:28 | disposition home or self-care (01) | DRG 813 ==
LOC: ER 12:33 → OVERFLOW 16:59 → CENTRAL 07-14 02:33
PROVIDERS: ADMIT Internal Medicine Cardiovascular Disease; ATTEND Internal Medicine Cardiovascular Disease
PROC: 30233R1 Transfusion of Nonautologous Platelets into Peripheral Vein, Percutaneous Approach (ICD-10-PCS; principal; 2023-07-14)
PROC: 079T3ZX Drainage of Bone Marrow, Percutaneous Approach, Diagnostic (ICD-10-PCS; 2023-07-14)
DX: D69.6 Thrombocytopenia, unspecified (principal); D61.818 Other pancytopenia; C92.10 Chronic myeloid leukemia, BCR/ABL-positive, not having achieved remission; I10 Essential (primary) hypertension; Z66 Do not resuscitate; I49.5 Sick sinus syndrome; G47.33 Obstructive sleep apnea (adult) (pediatric); K21.9 Gastro-esophageal reflux disease without esophagitis; D53.9 Nutritional anemia, unspecified; J44.89 Other specified chronic obstructive pulmonary disease; D69.9 Hemorrhagic condition, unspecified; Z90.710 Acquired absence of both cervix and uterus
CPT/HCPCS: 10005; 36415; 72192; 77012; 80048; 81001; 83735; 85007; 85027; 85610; 85652; 85730; 86850; 86880; 86900; 86901; G0378; J2001; J2250

== ENCOUNTER → 2023-07-29 | Outpatient (CLI) | payer MEDICARE, BC ==
[2023-07-29 10:21] LABS: Hemoglobin 7.7 g/dL (12.2-16.2); Mean Corpuscular Hemoglobin 36.3 pg (28.0-32.0); Red Blood Cells 2.12 10^6/uL (4.0-5.20)
[2023-07-29 10:24] LABS: Hematocrit 22.8 % (36.0-46.0); Mean Corpuscular Hgb Conc. 33.7 g/dL (32.0-36.0); Mean Corpuscular Volume 107.7 fL (80.0-100.0); Red Cell Distribution Width 16.8 % (11.8-14.3); White Blood Cell 2.5 10^3/uL (4.4-10.8)
[2023-07-29 10:31] LABS: Band Neutrophils % (manual) 0; Basophils % (manual) 0 (0.0-2.0); Blast Cells 0; Metamyelocytes % 0; Myelocytes % 0; Promyelocytes % 0; Reactive Lymphocytes 0
[2023-07-29 10:52] LABS: Alkaline Phosphatase 85 U/L (46-116); Anion Gap 5 (5-15); Aspartate Aminotransferase 18 U/L (13-40); BUN/Creatinine Ratio 19.3 (10.0-20.0); Bilirubin, Total 0.9 mg/dL (0.2-1.0); Blood Urea Nitrogen 17 mg/dL (9-23); Carbon Dioxide 28 mmol/L (20-30); Chloride 105 mmol/L (98-107); Glucose 102 mg/dL (74-106); Potassium 4.1 mmol/L (3.5-5.1); Sodium 138 mmol/L (136-145); Total Protein 7.1 g/dL (5.7-8.2)
[2023-07-29 11:35] LABS: Alanine Aminotransferase < 9 U/L (7-40)
[2023-07-29 13:11] LABS: Eosinophils % (manual) 2 (0-7); Lymphocytes % (manual) 36 (10.0-50.0); Monocytes % (manual) 23 (0-12); Platelet Estimate Markedly Decreased
== END | disposition home or self-care (01) ==
LOC: LAB 09:27
PROVIDERS: ATTEND Internal Medicine
DX: C44.310 Basal cell carcinoma of skin of unspecified parts of face (principal); D69.3 Immune thrombocytopenic purpura; D64.9 Anemia, unspecified; R59.0 Localized enlarged lymph nodes
CPT/HCPCS: 36415; 80053; 83615; 85007; 85027

== ENCOUNTER 2023-08-04 07:16 | Day surgery (SDC) | payer MEDICARE, BC ==
[2023-08-04] VITALS (7 sets, daily range): BP systolic 134–149; BP diastolic 57–93; PULSE 74–85; RESP 12–21; TEMP 97.7–97.9; O2SAT 96
[~2023-08-04] VITALS: Ht 167.6 cm; Wt 60.8 kg
[~2023-08-04 07:16] MED LIST changes: -FAMO20TA10 PO; +POTA-36 PO; -POTA10TA51 PO
== END 2023-08-04 10:31 | disposition home or self-care (01) ==
LOC: CATH 07:16
PROVIDERS: ATTEND Internal Medicine
DX: D64.9 Anemia, unspecified (principal); C44.319 Basal cell carcinoma of skin of other parts of face; I10 Essential (primary) hypertension; K21.9 Gastro-esophageal reflux disease without esophagitis; Z88.8 Allergy status to other drugs, medicaments and biological substances
CPT/HCPCS: 36430; 86850; 86900; 86901; J7030; P9035

== ENCOUNTER 2023-08-19 14:33 | Inpatient (IN) | payer MEDICARE, BC ==
[~2023-08-19] VITALS: Ht 167.6 cm; Wt 74.1 kg
[2023-08-19] VITALS (7 sets, daily range): BP systolic 139–144; BP diastolic 45–53; PULSE 78–89; RESP 16–18; TEMP 98–98.3; O2SAT 97–100
[2023-08-19 15:28] LABS: Hemoglobin 8.2 g/dL (12.2-16.2); Red Cell Distribution Width 19.2 % (11.8-14.3); White Blood Cell 5.9 10^3/uL (4.4-10.8)
[2023-08-19 15:32] LABS: Hematocrit 24.7 % (36.0-46.0); Mean Corpuscular Hemoglobin 37.2 pg (28.0-32.0); Mean Corpuscular Hgb Conc. 33.2 g/dL (32.0-36.0); Mean Corpuscular Volume 112.2 fL (80.0-100.0)
[2023-08-19 15:34] LABS: Band Neutrophils % (manual) 0; Basophils % (manual) 0 (0.0-2.0); Blast Cells 0; Eosinophils % (manual) 0 (0-7); Metamyelocytes % 0; Myelocytes % 0; Promyelocytes % 0; Reactive Lymphocytes 0
[2023-08-19 15:47] LABS: INR 1.09 (0.9-1.15); Partial Thromboplastin Time 24.8 SEC (24.5-34.5); Prothrombin Time 11.4 sec (9.3-11.8)
[2023-08-19 16:33] LABS: Anisocytosis Slight; Lymphocytes % (manual) 38 (10.0-50.0); Macrocytosis Marked; Monocytes % (manual) 17 (0-12); Platelet Estimate Markedly Decreased
[2023-08-19] MEDS ORDERED: ACETAMINOPHEN 325 MG TAB PO PRN (17:30)
[2023-08-19] MEDS: SODIUM CHLORIDE 0.9% 1,000 ML IV SCH (18:30)
[2023-08-19] MEDS: BACLOFEN 10 MG TAB PO SCH (22:00)
[2023-08-19] MEDS ORDERED: POTA-180 PO (22:32)
[2023-08-19] MEDS ORDERED: PRED20TA2 PO (22:32)
[2023-08-19] MEDS ORDERED: FURO40TA4 PO (22:32)
[2023-08-20] VITALS (10 sets, daily range): BP systolic 107–148; BP diastolic 50–69; PULSE 67–94; RESP 16–20; TEMP 97.5–98.4; O2SAT 93–100
[2023-08-20 05:41] LABS: White Blood Cell 3.6 10^3/uL (4.4-10.8)
[2023-08-20 05:46] LABS: Hematocrit 19.9 % (36.0-46.0); Mean Corpuscular Hemoglobin 36.7 pg (28.0-32.0); Mean Corpuscular Hgb Conc. 32.8 g/dL (32.0-36.0); Mean Corpuscular Volume 111.9 fL (80.0-100.0); Red Blood Cells 1.78 10^6/uL (4.0-5.20); Red Cell Distribution Width 18.9 % (11.8-14.3)
[2023-08-20 06:08] LABS: Hemoglobin 6.5 g/dL (12.2-16.2)
[2023-08-20 06:10] LABS: Basophils % (manual) 0 (0.0-2.0); Blast Cells 0; Eosinophils % (manual) 0 (0-7); Metamyelocytes % 0; Myelocytes % 0; Promyelocytes % 0; Reactive Lymphocytes 0
[2023-08-20 06:22] LABS: Alanine Aminotransferase 12 U/L (7-40); Albumin 3.3 g/dL (3.2-4.8); Alkaline Phosphatase 58 U/L (46-116); Anion Gap 2 (5-15); Aspartate Aminotransferase < 8 U/L (13-40); BUN/Creatinine Ratio 20.7 (10.0-20.0); Blood Urea Nitrogen 18 mg/dL (9-23); Calcium 9.1 mg/dL (8.7-10.4); Carbon Dioxide 31 mmol/L (20-30); Chloride 108 mmol/L (98-107); Glucose 137 mg/dL (74-106); Potassium 3.6 mmol/L (3.5-5.1); Sodium 141 mmol/L (136-145)
[2023-08-20 06:23] LABS: Bilirubin, Total 0.9 mg/dL (0.2-1.0); Total Protein 5.9 g/dL (5.7-8.2)
[2023-08-20 07:55] LABS: Band Neutrophils % (manual) 3; Lymphocytes % (manual) 39 (10.0-50.0); Monocytes % (manual) 16 (0-12)
[2023-08-20 07:56] LABS: Macrocytosis Moderate; Platelet Estimate Decreased
[2023-08-20] MEDS: AMLODIPINE PO SCH (09:49)
[2023-08-20] MEDS: [UNRECOGNIZED DRUG - OTHER] PO SCH (09:49)
[2023-08-20 10:36] LABS: Ferritin 126.5 ng/mL (10-291)
[2023-08-20 10:38] LABS: Folate (Folic Acid) 18.51 ng/mL (>5.38)
[2023-08-20] MEDS ORDERED: hydrALAZINE HCL 20 MG/ML VL IV PRN (13:45)
[2023-08-20 16:51] LABS: White Blood Cell 3.2 10^3/uL (4.4-10.8)
[2023-08-20 16:54] LABS: Hematocrit 26.3 % (36.0-46.0); Hemoglobin 8.7 g/dL (12.2-16.2); Mean Corpuscular Hemoglobin 33.6 pg (28.0-32.0); Mean Corpuscular Hgb Conc. 33.3 g/dL (32.0-36.0); Mean Corpuscular Volume 100.9 fL (80.0-100.0); Red Blood Cells 2.61 10^6/uL (4.0-5.20)
[2023-08-20] MEDS: CYANOCOBALAMIN (B-12) 1000 MCG/1 ML VIAL IM ONE (17:11)
[2023-08-20 17:15] LABS: Red Cell Distribution Width 27.8 % (11.8-14.3)
[2023-08-20 17:17] LABS: Basophils % (manual) 0 (0.0-2.0); Blast Cells 0; Eosinophils % (manual) 0 (0-7); Promyelocytes % 0; Reactive Lymphocytes 0
[2023-08-20 18:48] LABS: Band Neutrophils % (manual) 13; Lymphocytes % (manual) 34 (10.0-50.0); Metamyelocytes % 7; Monocytes % (manual) 13 (0-12); Myelocytes % 5
[2023-08-20 18:51] LABS: Platelet Estimate Decreased
[2023-08-21] MEDS ORDERED: CYANOCOBALAMIN 500 MCG TAB PO SCH (10:00)
[2023-08-27] MEDS ORDERED: [UNRECOGNIZED DRUG - CODE] IJ (10:38)
[2023-08-27] MEDS ORDERED: VENE1TAB5 PO (10:38)
== END 2023-08-20 18:15 | disposition home or self-care (01) | DRG 809 ==
LOC: ER 14:33 → OVERFLOW 17:22 → CENTRAL 17:22
PROVIDERS: ADMIT Internal Medicine; ATTEND Internal Medicine
PROC: 30233N1 Transfusion of Nonautologous Red Blood Cells into Peripheral Vein, Percutaneous Approach (ICD-10-PCS; 2023-08-19)
PROC: 30233R1 Transfusion of Nonautologous Platelets into Peripheral Vein, Percutaneous Approach (ICD-10-PCS; principal; 2023-08-20)
DX: D61.818 Other pancytopenia (principal); C92.10 Chronic myeloid leukemia, BCR/ABL-positive, not having achieved remission; I10 Essential (primary) hypertension; K21.9 Gastro-esophageal reflux disease without esophagitis; R53.1 Weakness; F41.9 Anxiety disorder, unspecified; R04.0 Epistaxis; J44.89 Other specified chronic obstructive pulmonary disease; G47.33 Obstructive sleep apnea (adult) (pediatric); I49.5 Sick sinus syndrome; K06.8 Other specified disorders of gingiva and edentulous alveolar ridge; Z90.710 Acquired absence of both cervix and uterus; Z83.3 Family history of diabetes mellitus
CPT/HCPCS: 36415; 80053; 82306; 82607; 82728; 82746; 83540; 83550; 83605; 83880; 84443; 85007; 85027; 85045; 85049; 85610; 85730; 86141; 86850; 86900; 86901; 86920; G0378

== ENCOUNTER 2023-08-30 07:23 | Day surgery (SDC) | payer MEDICARE, BC ==
[~2023-08-30] VITALS: Ht 167.6 cm; Wt 73.9 kg
[~2023-08-30 07:23] MED LIST changes: -BACL10TA PO; +FURO40TA4 PO; +POTA-180 PO; -POTA-36 PO; -PRED10TA PO; +PRED20TA2 PO; +VENE1TAB5 PO; +[UNRECOGNIZED DRUG - CODE] IJ
[2023-08-30 08:41] VITALS: BP 144/86; PULSE 90; RESP 17; TEMP 97.8
[2023-08-30 08:47] VITALS: BP 119/52; PULSE 88; RESP 15; TEMP 97.8
[2023-08-30 09:01] VITALS: BP 130/56; PULSE 86; RESP 12; TEMP 97.7
[2023-08-30 10:02] VITALS: BP 132/51; PULSE 87; RESP 17; TEMP 97.6
[2023-08-30 11:15] VITALS: BP 131/54; PULSE 89; RESP 20; TEMP 97.6
[2023-08-30 11:28] VITALS: BP 131/57; PULSE 91; RESP 12; TEMP 97.6
== END 2023-08-30 11:37 | disposition home or self-care (01) ==
LOC: CATH 07:23
PROVIDERS: ATTEND Student in an Organized Health Care Education/Training Program
DX: D69.6 Thrombocytopenia, unspecified (principal); D64.9 Anemia, unspecified; F41.9 Anxiety disorder, unspecified; I10 Essential (primary) hypertension; K21.9 Gastro-esophageal reflux disease without esophagitis; Z79.899 Other long term (current) drug therapy; Z88.8 Allergy status to other drugs, medicaments and biological substances; Z90.710 Acquired absence of both cervix and uterus
CPT/HCPCS: 36430; 86850; 86900; 86901; J7030; P9035

== ENCOUNTER 2023-09-03 07:54 | Day surgery (SDC) | payer MEDICARE, BC ==
[2023-09-03] VITALS (8 sets, daily range): BP systolic 112–139; BP diastolic 51–82; PULSE 83–90; RESP 12–16; TEMP 98.1–98.2; O2SAT 95–100
== END 2023-09-03 12:12 | disposition home or self-care (01) ==
LOC: CATH 07:54
PROVIDERS: ATTEND Student in an Organized Health Care Education/Training Program
DX: D69.3 Immune thrombocytopenic purpura (principal); D64.9 Anemia, unspecified; F41.9 Anxiety disorder, unspecified; I10 Essential (primary) hypertension; K21.9 Gastro-esophageal reflux disease without esophagitis; Z79.899 Other long term (current) drug therapy; Z85.6 Personal history of leukemia; Z88.8 Allergy status to other drugs, medicaments and biological substances; Z90.710 Acquired absence of both cervix and uterus
CPT/HCPCS: 36430; 86850; 86900; 86901; 86920; P9016

== ENCOUNTER 2023-09-06 23:45 | Emergency (ER) | payer MEDICARE, BC ==
[~2023-09-06] VITALS: Ht 167.6 cm; Wt 74.0 kg
[2023-09-07 01:04] LABS: Hematocrit 24.8 % (36.0-46.0); Mean Corpuscular Hgb Conc. 33.7 g/dL (32.0-36.0)
[2023-09-07 01:06] LABS: Hemoglobin 8.4 g/dL (12.2-16.2); Mean Corpuscular Hemoglobin 32.1 pg (28.0-32.0); Mean Corpuscular Volume 95.2 fL (80.0-100.0); Red Blood Cells 2.61 10^6/uL (4.0-5.20)
[2023-09-07 01:13] LABS: Chloride 106 mmol/L (98-107); Potassium 3.9 mmol/L (3.5-5.1); Sodium 139 mmol/L (136-145)
[2023-09-07 01:14] LABS: Anion Gap 8 (5-15); Calcium 10.1 mg/dL (8.7-10.4); Carbon Dioxide 25 mmol/L (20-30)
[2023-09-07 01:19] LABS: BUN/Creatinine Ratio 13.5 (10.0-20.0); Blood Urea Nitrogen 15 mg/dL (9-23); Glucose 121 mg/dL (74-106)
[2023-09-07 01:32] LABS: Red Cell Distribution Width 28.2 % (11.8-14.3)
[2023-09-07 01:37] LABS: White Blood Cell 1.9 10^3/uL (4.4-10.8)
[2023-09-07 01:38] LABS: Basophils % (manual) 0 (0.0-2.0); Blast Cells 0; Eosinophils % (manual) 0 (0-7); Metamyelocytes % 0; Myelocytes % 0; Promyelocytes % 0; Reactive Lymphocytes 0
[2023-09-07 01:52] LABS: Band Neutrophils % (manual) 2; Lymphocytes % (manual) 42 (10.0-50.0); Monocytes % (manual) 19 (0-12)
[2023-09-07 01:54] LABS: Anisocytosis Moderate; Ovalocytes FEW; Platelet Estimate Markedly Decreased
[2023-09-07 02:48] VITALS: BP 145/62; PULSE 104; RESP 17; TEMP 98; O2SAT 98
== END 2023-09-07 02:47 | disposition home or self-care (01) ==
LOC: ER 23:45
DX: D64.9 Anemia, unspecified (principal); D72.829 Elevated white blood cell count, unspecified; K06.8 Other specified disorders of gingiva and edentulous alveolar ridge; J45.909 Unspecified asthma, uncomplicated; K21.9 Gastro-esophageal reflux disease without esophagitis; I10 Essential (primary) hypertension; Z86.2 Personal history of diseases of the blood and blood-forming organs and certain disorders involving the immune mechanism; Z90.49 Acquired absence of other specified parts of digestive tract; Z90.710 Acquired absence of both cervix and uterus; Z95.0 Presence of cardiac pacemaker; Z79.899 Other long term (current) drug therapy; Z88.8 Allergy status to other drugs, medicaments and biological substances; Z91.018 Allergy to other foods; Z91.040 Latex allergy status
CPT/HCPCS: 36415; 80048; 85007; 85027; 86850; 86900; 86901

== ENCOUNTER → 2023-09-06 | Outpatient (CLI) | payer MEDICARE, BC ==
[2023-09-06 10:13] LABS: Hemoglobin 8.1 g/dL (12.2-16.2); Mean Corpuscular Hemoglobin 31.9 pg (28.0-32.0); Mean Corpuscular Hgb Conc. 33.5 g/dL (32.0-36.0); Mean Corpuscular Volume 95.2 fL (80.0-100.0); Red Blood Cells 2.52 10^6/uL (4.0-5.20); White Blood Cell 2.2 10^3/uL (4.4-10.8)
[2023-09-06 11:48] LABS: Red Cell Distribution Width 28.3 % (11.8-14.3)
[2023-09-06 11:50] LABS: Band Neutrophils % (manual) 0; Basophils % (manual) 0 (0.0-2.0); Eosinophils % (manual) 0 (0-7); Metamyelocytes % 0; Myelocytes % 0; Promyelocytes % 0
[2023-09-06 12:21] LABS: Blast Cells 6; Lymphocytes % (manual) 34 (10.0-50.0); Monocytes % (manual) 12 (0-12); Reactive Lymphocytes 4
[2023-09-06 12:22] LABS: Anisocytosis Moderate; Ovalocytes MODERATE
[2023-09-06 14:21] LABS: Platelet Estimate Markedly Decreased
== END | disposition home or self-care (01) ==
LOC: LAB 09:30
PROVIDERS: ATTEND Internal Medicine
DX: C92.00 Acute myeloblastic leukemia, not having achieved remission (principal); C44.310 Basal cell carcinoma of skin of unspecified parts of face; R59.0 Localized enlarged lymph nodes; D69.3 Immune thrombocytopenic purpura; D46.9 Myelodysplastic syndrome, unspecified; Z88.8 Allergy status to other drugs, medicaments and biological substances
CPT/HCPCS: 36415; 85007; 85027

== ENCOUNTER → 2023-09-09 | Outpatient (CLI) | payer MEDICARE, BC ==
[2023-09-09 13:44] LABS: Hematocrit 22.7 % (36.0-46.0); Hemoglobin 7.6 g/dL (12.2-16.2); Mean Corpuscular Hemoglobin 31.8 pg (28.0-32.0); Mean Corpuscular Hgb Conc. 33.6 g/dL (32.0-36.0); Mean Corpuscular Volume 94.8 fL (80.0-100.0); Red Blood Cells 2.39 10^6/uL (4.0-5.20)
[2023-09-09 13:45] LABS: White Blood Cell 1.4 10^3/uL (4.4-10.8)
[2023-09-09 13:46] LABS: Band Neutrophils % (manual) 0; Basophils % (manual) 0 (0.0-2.0); Eosinophils % (manual) 0 (0-7); Metamyelocytes % 0; Myelocytes % 0; Promyelocytes % 0; Reactive Lymphocytes 0
[2023-09-09 14:19] LABS: Anisocytosis Moderate; Blast Cells 2; Lymphocytes % (manual) 57 (10.0-50.0); Monocytes % (manual) 11 (0-12); Platelet Estimate Markedly Decreased
== END | disposition home or self-care (01) ==
LOC: LAB 09:53
PROVIDERS: ATTEND Internal Medicine
DX: C92.00 Acute myeloblastic leukemia, not having achieved remission (principal); C44.310 Basal cell carcinoma of skin of unspecified parts of face; R59.0 Localized enlarged lymph nodes; D69.3 Immune thrombocytopenic purpura; D46.9 Myelodysplastic syndrome, unspecified
CPT/HCPCS: 36415; 85007; 85027

== ENCOUNTER → 2023-09-13 | Outpatient (CLI) | payer MEDICARE, BC ==
[2023-09-13 10:15] LABS: Mean Corpuscular Volume 92.8 fL (80.0-100.0)
[2023-09-13 10:17] LABS: Hematocrit 23.2 % (36.0-46.0); Hemoglobin 7.9 g/dL (12.2-16.2); Mean Corpuscular Hemoglobin 31.7 pg (28.0-32.0); Mean Corpuscular Hgb Conc. 34.2 g/dL (32.0-36.0)
[2023-09-13 13:17] LABS: Red Cell Distribution Width 27.7 % (11.8-14.3)
[2023-09-13 13:21] LABS: White Blood Cell 1.4 10^3/uL (4.4-10.8)
[2023-09-13 13:23] LABS: Band Neutrophils % (manual) 0; Basophils % (manual) 0 (0.0-2.0); Blast Cells 0; Eosinophils % (manual) 0 (0-7); Metamyelocytes % 0; Myelocytes % 0; Promyelocytes % 0; Reactive Lymphocytes 0
[2023-09-13 13:32] LABS: Lymphocytes % (manual) 62 (10.0-50.0); Monocytes % (manual) 9 (0-12); Platelet Estimate Markedly Decreased
== END | disposition home or self-care (01) ==
LOC: LAB 09:16
PROVIDERS: ATTEND Internal Medicine
DX: C92.00 Acute myeloblastic leukemia, not having achieved remission (principal); C44.310 Basal cell carcinoma of skin of unspecified parts of face; D69.3 Immune thrombocytopenic purpura; D46.9 Myelodysplastic syndrome, unspecified; Z88.8 Allergy status to other drugs, medicaments and biological substances
CPT/HCPCS: 36415; 85007; 85027

== ENCOUNTER → 2023-09-14 | Outpatient (CLI) | payer MEDICARE, BC ==
[2023-09-14 11:06] LABS: Hematocrit 23.3 % (36.0-46.0); Hemoglobin 7.9 g/dL (12.2-16.2); Mean Corpuscular Hemoglobin 31.3 pg (28.0-32.0); Mean Corpuscular Hgb Conc. 33.8 g/dL (32.0-36.0); Mean Corpuscular Volume 92.5 fL (80.0-100.0); Red Blood Cells 2.52 10^6/uL (4.0-5.20)
[2023-09-14 11:57] LABS: Red Cell Distribution Width 27.4 % (11.8-14.3)
[2023-09-14 12:01] LABS: Alanine Aminotransferase 16 U/L (7-40); Alkaline Phosphatase 118 U/L (46-116); Anion Gap 9 (5-15); Aspartate Aminotransferase 20 U/L (13-40); BUN/Creatinine Ratio 14.4 (10.0-20.0); Blood Urea Nitrogen 14 mg/dL (9-23); Calcium 9.4 mg/dL (8.7-10.4); Carbon Dioxide 24 mmol/L (20-30); Chloride 103 mmol/L (98-107); Glucose 106 mg/dL (74-106); Potassium 3.9 mmol/L (3.5-5.1); Sodium 136 mmol/L (136-145); Uric Acid 6.9 mg/dL (3.1-7.8)
[2023-09-14 12:02] LABS: Albumin 3.8 g/dL (3.2-4.8); Bilirubin, Total 1.5 mg/dL (0.2-1.0); Total Protein 6.9 g/dL (5.7-8.2); White Blood Cell 1.3 10^3/uL (4.4-10.8)
[2023-09-14 12:04] LABS: Basophils % (manual) 0 (0.0-2.0); Blast Cells 0; Eosinophils % (manual) 0 (0-7); Metamyelocytes % 0; Myelocytes % 0; Promyelocytes % 0; Reactive Lymphocytes 0
[2023-09-14 12:30] LABS: Band Neutrophils % (manual) 3; Lymphocytes % (manual) 59 (10.0-50.0); Monocytes % (manual) 4 (0-12)
[2023-09-14 12:31] LABS: Anisocytosis Slight; Platelet Estimate Markedly Decreased
== END | disposition home or self-care (01) ==
LOC: LAB 10:36
PROVIDERS: ATTEND Internal Medicine
DX: C92.00 Acute myeloblastic leukemia, not having achieved remission (principal); D69.3 Immune thrombocytopenic purpura; D46.9 Myelodysplastic syndrome, unspecified; C44.310 Basal cell carcinoma of skin of unspecified parts of face; R59.0 Localized enlarged lymph nodes; Z91.040 Latex allergy status; Z88.8 Allergy status to other drugs, medicaments and biological substances
CPT/HCPCS: 36415; 80053; 83615; 84550; 85007; 85027

== ENCOUNTER 2023-09-15 07:44 | Day surgery (SDC) | payer MEDICARE, BC ==
[2023-09-15 08:33] VITALS: BP 115/44; PULSE 83; RESP 19; TEMP 97.7
[2023-09-15 08:45] VITALS: BP 121/47; PULSE 80; RESP 20; TEMP 98.2
[2023-09-15 09:00] VITALS: BP 119/49; PULSE 81; RESP 20; TEMP 98
[2023-09-15 09:30] VITALS: BP 117/52; PULSE 79; RESP 19; TEMP 98.2
[2023-09-15 10:15] VITALS: BP 109/49; PULSE 87; RESP 19; TEMP 97.8
[2023-09-15 10:30] VITALS: BP 119/47; PULSE 78; RESP 18; TEMP 98
== END 2023-09-15 10:35 | disposition home or self-care (01) ==
LOC: CATH 07:44
PROVIDERS: ATTEND Student in an Organized Health Care Education/Training Program
DX: D46.9 Myelodysplastic syndrome, unspecified (principal); I10 Essential (primary) hypertension; E11.9 Type 2 diabetes mellitus without complications; J45.909 Unspecified asthma, uncomplicated; K21.9 Gastro-esophageal reflux disease without esophagitis; Z79.899 Other long term (current) drug therapy; Z90.49 Acquired absence of other specified parts of digestive tract; Z95.0 Presence of cardiac pacemaker
CPT/HCPCS: 36430; 86850; 86900; 86901; J7030; P9035

== ENCOUNTER → 2023-09-20 | Outpatient (CLI) | payer MEDICARE, BC ==
[2023-09-20 09:53] LABS: Basophils # (auto) 0 10 ^3/uL (0-0.2); Basophils % (auto) 0.2 % (0.0-2.0); Eosinophils # (auto) 0 10 ^3/uL (0-0.8); Monocytes # (auto) 0.3 10 ^3/uL (0-1.3); Neutrophils # (auto) 0.5 10 ^3/uL (1.6-8.6)
[2023-09-20 09:55] LABS: Eosinophils % (auto) 0.5 % (0.0-7.0); Hematocrit 24.6 % (36.0-46.0); Hemoglobin 8.2 g/dL (12.2-16.2); Lymphocytes % (auto) 54.4 % (10.0-50.0); Mean Corpuscular Hemoglobin 30.4 pg (28.0-32.0); Mean Corpuscular Hgb Conc. 33.3 g/dL (32.0-36.0); Mean Corpuscular Volume 91.5 fL (80.0-100.0); Monocytes % (auto) 17.8 % (0.0-12.0); Neutrophils % (auto) 27.1 % (37.0-80.0); Nucleated Red Blood Cells % 0.4 %; Red Blood Cells 2.69 10^6/uL (4.0-5.20)
[2023-09-20 09:59] LABS: Red Cell Distribution Width 26.8 % (11.8-14.3)
[2023-09-20 10:02] LABS: White Blood Cell 1.9 10^3/uL (4.4-10.8)
[2023-09-20 10:43] LABS: Alanine Aminotransferase 13 U/L (7-40); Alkaline Phosphatase 141 U/L (46-116); Anion Gap 10 (5-15); Aspartate Aminotransferase 20 U/L (13-40); Calcium 10.2 mg/dL (8.5-10.1); Carbon Dioxide 23 mmol/L (20-30); Chloride 103 mmol/L (98-107); Glucose 113 mg/dL (74-106); Potassium 3.9 mmol/L (3.5-5.1); Sodium 136 mmol/L (136-145)
[2023-09-20 10:44] LABS: BUN/Creatinine Ratio 10.6 (10.0-20.0); Blood Urea Nitrogen 11 mg/dL (9-23)
[2023-09-20 10:45] LABS: Albumin 4.1 g/dL (3.2-4.8)
[2023-09-20 10:46] LABS: Bilirubin, Total 1.4 mg/dL (0.2-1.0); Total Protein 7.8 g/dL (5.7-8.2)
[2023-09-20 11:23] LABS: Anisocytosis Moderate; Platelet Estimate Markedly Decreased
== END | disposition home or self-care (01) ==
LOC: LAB 09:33
PROVIDERS: ATTEND Internal Medicine
DX: C92.00 Acute myeloblastic leukemia, not having achieved remission (principal); R59.0 Localized enlarged lymph nodes; D69.3 Immune thrombocytopenic purpura; D46.9 Myelodysplastic syndrome, unspecified; Z88.8 Allergy status to other drugs, medicaments and biological substances
CPT/HCPCS: 36415; 80053; 83615; 85025

== ENCOUNTER → 2023-09-24 | Outpatient (CLI) | payer MEDICARE, BC ==
[2023-09-24 09:50] LABS: Hemoglobin 7.1 g/dL (12.2-16.2)
[2023-09-24 09:54] LABS: Hematocrit 21.4 % (36.0-46.0); Mean Corpuscular Hemoglobin 29.6 pg (28.0-32.0); Mean Corpuscular Volume 89.8 fL (80.0-100.0); Red Blood Cells 2.39 10^6/uL (4.0-5.20)
[2023-09-24 10:05] LABS: White Blood Cell 1.8 10^3/uL (4.4-10.8)
[2023-09-24 10:07] LABS: Basophils % (manual) 0 (0.0-2.0); Blast Cells 0; Eosinophils % (manual) 0 (0-7); Metamyelocytes % 0; Myelocytes % 0; Promyelocytes % 0; Reactive Lymphocytes 0
[2023-09-24 11:06] LABS: Anisocytosis Slight; Band Neutrophils % (manual) 1; Lymphocytes % (manual) 40 (10.0-50.0); Monocytes % (manual) 26 (0-12); Platelet Estimate Markedly Decreased
[2023-09-24 11:17] LABS: Albumin 3.8 g/dL (3.2-4.8); Alkaline Phosphatase 127 U/L (46-116); Anion Gap 9 (5-15); Aspartate Aminotransferase 12 U/L (13-40); BUN/Creatinine Ratio 14.9 (10.0-20.0); Blood Urea Nitrogen 20 mg/dL (9-23); Calcium 10.2 mg/dL (8.5-10.1); Carbon Dioxide 24 mmol/L (20-30); Chloride 103 mmol/L (98-107); Glucose 114 mg/dL (74-106); Potassium 3.9 mmol/L (3.5-5.1); Sodium 136 mmol/L (136-145)
[2023-09-24 11:18] LABS: Alanine Aminotransferase < 9 U/L (7-40); Bilirubin, Total 1.2 mg/dL (0.2-1.0); Total Protein 7.2 g/dL (5.7-8.2)
== END | disposition home or self-care (01) ==
LOC: LAB 09:33
PROVIDERS: ATTEND Internal Medicine
DX: C92.00 Acute myeloblastic leukemia, not having achieved remission (principal); C44.310 Basal cell carcinoma of skin of unspecified parts of face; D69.3 Immune thrombocytopenic purpura; R59.0 Localized enlarged lymph nodes; D46.9 Myelodysplastic syndrome, unspecified; Z88.8 Allergy status to other drugs, medicaments and biological substances
CPT/HCPCS: 36415; 80053; 83615; 85007; 85027

== ENCOUNTER 2023-10-01 07:37 | Day surgery (SDC) | payer MEDICARE, BC ==
[~2023-10-01] VITALS: Ht 167.6 cm; Wt 71.2 kg
[2023-10-01 08:24] VITALS: BP 135/58; PULSE 85; RESP 15; TEMP 98
[2023-10-01 08:50] VITALS: BP 138/102; PULSE 80; RESP 14; TEMP 97.8
[2023-10-01 10:00] VITALS: BP 132/56; PULSE 77; RESP 17; TEMP 98
[2023-10-01 11:00] VITALS: BP 120/52; PULSE 77; RESP 23; TEMP 97.7
[2023-10-01 11:35] VITALS: BP 129/60; PULSE 82; RESP 18; TEMP 98.5
== END 2023-10-01 12:05 | disposition home or self-care (01) ==
LOC: CATH 07:37
PROVIDERS: ATTEND Student in an Organized Health Care Education/Training Program
DX: D46.9 Myelodysplastic syndrome, unspecified (principal); I10 Essential (primary) hypertension; K21.9 Gastro-esophageal reflux disease without esophagitis; E11.9 Type 2 diabetes mellitus without complications; J45.909 Unspecified asthma, uncomplicated; Z79.899 Other long term (current) drug therapy; Z90.49 Acquired absence of other specified parts of digestive tract
CPT/HCPCS: 36430; 86850; 86900; 86901; 86920; P9016

== ENCOUNTER 2023-10-05 12:17 | Inpatient (IN) | payer MEDICARE, BC ==
[2023-10-05] VITALS (16 sets, daily range): BP systolic 131–166; BP diastolic 53–89; PULSE 73–88; RESP 11–24; TEMP 97.6–98.9; O2SAT 97–100
[~2023-10-05] VITALS: Ht 167.6 cm; Wt 76.1 kg
[2023-10-05 13:02] LABS: Basophils # (auto) 0 10 ^3/uL (0-0.2); Basophils % (auto) 0.4 % (0.0-2.0); Eosinophils # (auto) 0 10 ^3/uL (0-0.8); Eosinophils % (auto) 0.2 % (0.0-7.0); Hematocrit 25.6 % (36.0-46.0); Hemoglobin 8.5 g/dL (12.2-16.2); Lymphocytes # (auto) 1.2 10 ^3/uL (0.4-5.4); Lymphocytes % (auto) 25.6 % (10.0-50.0); Mean Corpuscular Hemoglobin 31.4 pg (28.0-32.0); Mean Corpuscular Hgb Conc. 33.3 g/dL (32.0-36.0); Mean Corpuscular Volume 94.2 fL (80.0-100.0); Monocytes # (auto) 0.4 10 ^3/uL (0-1.3); Monocytes % (auto) 9.5 % (0.0-12.0); Neutrophils % (auto) 64.3 % (37.0-80.0); Nucleated Red Blood Cells % 0.5 %; Red Blood Cells 2.72 10^6/uL (4.0-5.20); White Blood Cell 4.6 10^3/uL (4.4-10.8)
[2023-10-05 13:03] LABS: Red Cell Distribution Width 26.1 % (11.8-14.3)
[2023-10-05] MEDS: SODIUM CHLORIDE 0.9% 1,000 ML IV ONE (13:07)
[2023-10-05 13:17] LABS: INR 1.09 (0.9-1.15); Partial Thromboplastin Time 26.8 SEC (24.5-34.5); Prothrombin Time 11.5 sec (9.3-11.8)
[2023-10-05 13:21] LABS: Alanine Aminotransferase 11 U/L (7-40); Alkaline Phosphatase 115 U/L (46-116); Anion Gap 5 (5-15); Aspartate Aminotransferase 11 U/L (13-40); BUN/Creatinine Ratio 18.4 (10.0-20.0); Blood Urea Nitrogen 16 mg/dL (9-23); Calcium 9.2 mg/dL (8.5-10.1); Carbon Dioxide 27 mmol/L (20-30); Chloride 106 mmol/L (98-107); Glucose 116 mg/dL (74-106); Magnesium 1.9 mg/dL (1.6-2.6); Potassium 3.6 mmol/L (3.5-5.1); Sodium 138 mmol/L (136-145)
[2023-10-05 13:22] LABS: Albumin 3.9 g/dL (3.2-4.8); Bilirubin, Total 1.3 mg/dL (0.2-1.0); Total Protein 6.7 g/dL (5.7-8.2)
[2023-10-05 13:23] LABS: Anisocytosis Moderate; Platelet Estimate Markedly Decreased
[2023-10-05] MEDS ORDERED: MORPHINE SULFATE INJ 2 MG/ml SYRG IV PRN (17:00)
[2023-10-05] MEDS ORDERED: NITROGLYCERIN 0.4 MG SL TAB SL PRN (17:00)
[2023-10-05] MEDS: IPRATROPIUM BROM 0.5 MG/2.5ML INH SOL NEB SCH (21:51)
[2023-10-05] MEDS: predniSONE 20 MG TAB PO SCH (22:54)
[2023-10-05] MEDS ORDERED: ONDA-180 PO (23:31)
[2023-10-05] MEDS ORDERED: ALBU108A5 PO (23:31)
[2023-10-06] VITALS (9 sets, daily range): BP systolic 138–152; BP diastolic 53–72; PULSE 18–89; RESP 16–18; TEMP 97.7–98.2; O2SAT 95–100
[2023-10-06 07:54] LABS: Basophils # (auto) 0 10 ^3/uL (0-0.2); Eosinophils # (auto) 0 10 ^3/uL (0-0.8); Lymphocytes # (auto) 0.4 10 ^3/uL (0.4-5.4); Monocytes # (auto) 0.1 10 ^3/uL (0-1.3); Nucleated Red Blood Cells % 0.3 %; White Blood Cell 4.6 10^3/uL (4.4-10.8)
[2023-10-06 07:57] LABS: Albumin 3.8 g/dL (3.2-4.8); Alkaline Phosphatase 105 U/L (46-116); Anion Gap 6 (5-15); Aspartate Aminotransferase 15 U/L (13-40); BUN/Creatinine Ratio 13.2 (10.0-20.0); Basophils % (auto) 0.2 % (0.0-2.0); Blood Urea Nitrogen 10 mg/dL (9-23); Calcium 9.6 mg/dL (8.5-10.1); Carbon Dioxide 24 mmol/L (20-30); Chloride 109 mmol/L (98-107); Glucose 134 mg/dL (74-106); Hematocrit 32.3 % (36.0-46.0); Hemoglobin 10.9 g/dL (12.2-16.2); Lymphocytes % (auto) 9.2 % (10.0-50.0); Mean Corpuscular Hemoglobin 30.5 pg (28.0-32.0); Mean Corpuscular Hgb Conc. 33.8 g/dL (32.0-36.0); Mean Corpuscular Volume 90.1 fL (80.0-100.0); Monocytes % (auto) 2.6 % (0.0-12.0); Potassium 4.1 mmol/L (3.5-5.1); Red Blood Cells 3.58 10^6/uL (4.0-5.20); Sodium 139 mmol/L (136-145)
[2023-10-06 07:58] LABS: Alanine Aminotransferase < 9 U/L (7-40); Bilirubin, Total 1.3 mg/dL (0.2-1.0); Total Protein 6.9 g/dL (5.7-8.2)
[2023-10-06 08:07] LABS: Red Cell Distribution Width 20.7 % (11.8-14.3)
[2023-10-06 08:34] LABS: Anisocytosis Slight; Platelet Estimate Markedly Decreased
[2023-10-06] MEDS: FUROSEMIDE 40 MG TAB PO SCH (10:00)
[2023-10-06] MEDS: POTASSIUM CHL 20 Meq TABLET PO SCH (10:00)
[2023-10-06] MEDS: [UNRECOGNIZED DRUG - OTHER] PO SCH (10:00)
[2023-10-06] MEDS: VENETOCLAX 400 MG PO SCH (10:00)
== END 2023-10-06 16:25 | disposition home or self-care (01) | DRG 809 ==
LOC: ER 12:17 → TELE 16:58 → TELE-WESTW 22:28
PROVIDERS: ADMIT Internal Medicine Cardiovascular Disease; ATTEND Internal Medicine Cardiovascular Disease
PROC: 30233R1 Transfusion of Nonautologous Platelets into Peripheral Vein, Percutaneous Approach (ICD-10-PCS; principal; 2023-10-05)
PROC: 30233N1 Transfusion of Nonautologous Red Blood Cells into Peripheral Vein, Percutaneous Approach (ICD-10-PCS; 2023-10-05)
DX: D61.810 Antineoplastic chemotherapy induced pancytopenia (principal); C92.10 Chronic myeloid leukemia, BCR/ABL-positive, not having achieved remission; K62.5 Hemorrhage of anus and rectum; I10 Essential (primary) hypertension; J44.89 Other specified chronic obstructive pulmonary disease; K21.9 Gastro-esophageal reflux disease without esophagitis; F41.9 Anxiety disorder, unspecified; G47.33 Obstructive sleep apnea (adult) (pediatric); E11.9 Type 2 diabetes mellitus without complications; R04.0 Epistaxis; I49.5 Sick sinus syndrome; Z88.8 Allergy status to other drugs, medicaments and biological substances; Z88.6 Allergy status to analgesic agent; Z91.040 Latex allergy status; Z79.899 Other long term (current) drug therapy; Z80.9 Family history of malignant neoplasm, unspecified
CPT/HCPCS: 36415; 74176; 80053; 83605; 83615; 83735; 83880; 84484; 85007; 85025; 85027; 85610; 85730; 86850; 86900; 86901; 86920; 93005; 94640; 96360; 99291; G0378

== ENCOUNTER → 2023-10-18 | Outpatient (CLI) | payer MEDICARE, BC ==
[~2023-10-18] MED LIST changes: +ALBU108A5 PO; -ALBU2TAB11 IN; +ONDA-180 PO; -PRED20TA2 PO
[2023-10-18 10:24] LABS: Basophils # (auto) 0 10 ^3/uL (0-0.2); Basophils % (auto) 0.4 % (0.0-2.0); Eosinophils # (auto) 0 10 ^3/uL (0-0.8); Eosinophils % (auto) 0.2 % (0.0-7.0); Hemoglobin 9.6 g/dL (12.2-16.2); Lymphocytes # (auto) 0.6 10 ^3/uL (0.4-5.4); Lymphocytes % (auto) 47.5 % (10.0-50.0); Mean Corpuscular Hemoglobin 29.4 pg (28.0-32.0); Mean Corpuscular Hgb Conc. 33.2 g/dL (32.0-36.0); Mean Corpuscular Volume 88.5 fL (80.0-100.0); Monocytes # (auto) 0.2 10 ^3/uL (0-1.3); Monocytes % (auto) 17.7 % (0.0-12.0); Neutrophils # (auto) 0.5 10 ^3/uL (1.6-8.6); Neutrophils % (auto) 34.2 % (37.0-80.0); Nucleated Red Blood Cells % 0.9 %; Red Blood Cells 3.28 10^6/uL (4.0-5.20)
[2023-10-18 10:26] LABS: Red Cell Distribution Width 22.5 % (11.8-14.3)
[2023-10-18 10:29] LABS: White Blood Cell 1.3 10^3/uL (4.4-10.8)
[2023-10-18 10:35] LABS: Alanine Aminotransferase 16 U/L (7-40); Alkaline Phosphatase 158 U/L (46-116); Anion Gap 5 (5-15); BUN/Creatinine Ratio 12.4 (10.0-20.0); Blood Urea Nitrogen 11 mg/dL (9-23); Calcium 9.7 mg/dL (8.5-10.1); Carbon Dioxide 29 mmol/L (20-30); Chloride 103 mmol/L (98-107); Glucose 105 mg/dL (74-106); Potassium 3.8 mmol/L (3.5-5.1); Sodium 137 mmol/L (136-145)
[2023-10-18 10:36] LABS: Albumin 3.7 g/dL (3.2-4.8); Aspartate Aminotransferase 14 U/L (13-40)
[2023-10-18 10:37] LABS: Bilirubin, Total 1.5 mg/dL (0.2-1.0); Total Protein 6.8 g/dL (5.7-8.2)
[2023-10-18 10:47] LABS: Anisocytosis Moderate; Platelet Estimate Markedly Decreased
== END | disposition home or self-care (01) ==
LOC: LAB 09:50
PROVIDERS: ATTEND Internal Medicine
DX: C92.00 Acute myeloblastic leukemia, not having achieved remission (principal); R59.0 Localized enlarged lymph nodes; D69.3 Immune thrombocytopenic purpura; D46.9 Myelodysplastic syndrome, unspecified; C44.310 Basal cell carcinoma of skin of unspecified parts of face
CPT/HCPCS: 36415; 80053; 83615; 85025

== ENCOUNTER → 2023-10-21 | Outpatient (CLI) | payer MEDICARE, BC ==
[2023-10-21 09:53] LABS: Basophils # (auto) 0 10 ^3/uL (0-0.2); Eosinophils # (auto) 0 10 ^3/uL (0-0.8); Eosinophils % (auto) 0.5 % (0.0-7.0); Neutrophils # (auto) 0.4 10 ^3/uL (1.6-8.6)
[2023-10-21 09:56] LABS: Basophils % (auto) 0.5 % (0.0-2.0); Hematocrit 28.4 % (36.0-46.0); Hemoglobin 9.3 g/dL (12.2-16.2); Mean Corpuscular Hemoglobin 29.1 pg (28.0-32.0); Mean Corpuscular Hgb Conc. 32.7 g/dL (32.0-36.0); Monocytes # (auto) 0.2 10 ^3/uL (0-1.3); Monocytes % (auto) 14.9 % (0.0-12.0); Neutrophils % (auto) 23.9 % (37.0-80.0); Nucleated Red Blood Cells % 0.5 %; Red Blood Cells 3.19 10^6/uL (4.0-5.20)
[2023-10-21 10:04] LABS: Lymphocytes % (auto) 60.2 % (10.0-50.0)
[2023-10-21 10:10] LABS: White Blood Cell 1.7 10^3/uL (4.4-10.8)
[2023-10-21 12:54] LABS: Platelet Estimate Markedly Decreased
== END | disposition home or self-care (01) ==
LOC: LAB 09:37
PROVIDERS: ATTEND Internal Medicine
DX: C44.310 Basal cell carcinoma of skin of unspecified parts of face (principal); D69.3 Immune thrombocytopenic purpura; D46.9 Myelodysplastic syndrome, unspecified; C92.00 Acute myeloblastic leukemia, not having achieved remission; R59.0 Localized enlarged lymph nodes
CPT/HCPCS: 36415; 85025

== ENCOUNTER → 2023-10-25 | Outpatient (CLI) | payer MEDICARE, BC ==
[2023-10-25 08:56] LABS: Basophils # (auto) 0 10 ^3/uL (0-0.2); Basophils % (auto) 0.7 % (0.0-2.0); Eosinophils # (auto) 0 10 ^3/uL (0-0.8); Lymphocytes # (auto) 1.1 10 ^3/uL (0.4-5.4); Mean Corpuscular Hgb Conc. 32.8 g/dL (32.0-36.0); Monocytes # (auto) 0.2 10 ^3/uL (0-1.3); Neutrophils # (auto) 0.5 10 ^3/uL (1.6-8.6)
[2023-10-25 09:00] LABS: Eosinophils % (auto) 0.3 % (0.0-7.0); Hematocrit 25.7 % (36.0-46.0); Hemoglobin 8.4 g/dL (12.2-16.2); Mean Corpuscular Hemoglobin 29.4 pg (28.0-32.0); Mean Corpuscular Volume 89.4 fL (80.0-100.0); Neutrophils % (auto) 29.5 % (37.0-80.0); Nucleated Red Blood Cells % 0.4 %; Red Blood Cells 2.87 10^6/uL (4.0-5.20)
[2023-10-25 09:15] LABS: Lymphocytes % (auto) 60.5 % (10.0-50.0); Red Cell Distribution Width 21.3 % (11.8-14.3)
[2023-10-25 09:17] LABS: White Blood Cell 1.8 10^3/uL (4.4-10.8)
[2023-10-25 09:59] LABS: Alanine Aminotransferase 11 U/L (7-40); Alkaline Phosphatase 146 U/L (46-116); Anion Gap 5 (5-15); BUN/Creatinine Ratio 10.9 (10.0-20.0); Blood Urea Nitrogen 10 mg/dL (9-23); Calcium 9.9 mg/dL (8.5-10.1); Carbon Dioxide 27 mmol/L (20-30); Chloride 105 mmol/L (98-107); Glucose 108 mg/dL (74-106); Sodium 137 mmol/L (136-145)
[2023-10-25 10:00] LABS: Albumin 3.6 g/dL (3.2-4.8); Aspartate Aminotransferase 13 U/L (13-40); Bilirubin, Total 1.2 mg/dL (0.2-1.0); Total Protein 6.7 g/dL (5.7-8.2)
[2023-10-25 11:21] LABS: Platelet Estimate Markedly Decreased
== END | disposition home or self-care (01) ==
LOC: LAB 08:42
PROVIDERS: ATTEND Internal Medicine
DX: C44.310 Basal cell carcinoma of skin of unspecified parts of face (principal); R59.0 Localized enlarged lymph nodes; D69.3 Immune thrombocytopenic purpura; D46.9 Myelodysplastic syndrome, unspecified; C92.00 Acute myeloblastic leukemia, not having achieved remission
CPT/HCPCS: 36415; 80053; 83615; 85025

== ENCOUNTER → 2023-10-28 | Outpatient (CLI) | payer MEDICARE, BC ==
[2023-10-28 09:25] LABS: Basophils # (auto) 0 10 ^3/uL (0-0.2); Eosinophils # (auto) 0 10 ^3/uL (0-0.8); Eosinophils % (auto) 0.2 % (0.0-7.0); Monocytes # (auto) 0.2 10 ^3/uL (0-1.3); White Blood Cell 2.2 10^3/uL (4.4-10.8)
[2023-10-28 09:31] LABS: Basophils % (auto) 0.4 % (0.0-2.0); Hematocrit 23.3 % (36.0-46.0); Hemoglobin 7.7 g/dL (12.2-16.2); Lymphocytes % (auto) 46.7 % (10.0-50.0); Mean Corpuscular Hemoglobin 29.7 pg (28.0-32.0); Mean Corpuscular Hgb Conc. 33.2 g/dL (32.0-36.0); Mean Corpuscular Volume 89.5 fL (80.0-100.0); Monocytes % (auto) 8.8 % (0.0-12.0); Neutrophils % (auto) 43.9 % (37.0-80.0); Nucleated Red Blood Cells % 0.9 %
[2023-10-28 09:33] LABS: Red Cell Distribution Width 21.6 % (11.8-14.3)
[2023-10-28 09:46] LABS: Alanine Aminotransferase 11 U/L (7-40); Alkaline Phosphatase 149 U/L (46-116); Anion Gap 5 (5-15); Aspartate Aminotransferase 11 U/L (13-40); BUN/Creatinine Ratio 11.1 (10.0-20.0); Blood Urea Nitrogen 9 mg/dL (9-23); Calcium 9.9 mg/dL (8.5-10.1); Carbon Dioxide 26 mmol/L (20-30); Chloride 107 mmol/L (98-107); Glucose 107 mg/dL (74-106); Sodium 138 mmol/L (136-145)
[2023-10-28 09:47] LABS: Albumin 3.6 g/dL (3.2-4.8); Bilirubin, Total 1.2 mg/dL (0.2-1.0); Total Protein 6.6 g/dL (5.7-8.2)
== END | disposition home or self-care (01) ==
LOC: LAB 08:54
PROVIDERS: ATTEND Internal Medicine
DX: C44.310 Basal cell carcinoma of skin of unspecified parts of face (principal); D69.3 Immune thrombocytopenic purpura; D46.9 Myelodysplastic syndrome, unspecified; C92.00 Acute myeloblastic leukemia, not having achieved remission; R59.0 Localized enlarged lymph nodes
CPT/HCPCS: 36415; 80053; 83615; 85025

== ENCOUNTER → 2023-11-01 | Outpatient (CLI) | payer MEDICARE, BC ==
[2023-11-01 12:19] LABS: Basophils # (auto) 0 10 ^3/uL (0-0.2); Eosinophils # (auto) 0 10 ^3/uL (0-0.8); Eosinophils % (auto) 0.1 % (0.0-7.0); Lymphocytes # (auto) 0.9 10 ^3/uL (0.4-5.4); Monocytes # (auto) 0.3 10 ^3/uL (0-1.3); Nucleated Red Blood Cells % 2.4 %
[2023-11-01 12:23] LABS: Basophils % (auto) 0.3 % (0.0-2.0); Hematocrit 23.5 % (36.0-46.0); Hemoglobin 7.9 g/dL (12.2-16.2); Lymphocytes % (auto) 34.7 % (10.0-50.0); Mean Corpuscular Hemoglobin 30.4 pg (28.0-32.0); Mean Corpuscular Hgb Conc. 33.6 g/dL (32.0-36.0); Mean Corpuscular Volume 90.3 fL (80.0-100.0); Monocytes % (auto) 9.8 % (0.0-12.0); Neutrophils # (auto) 1.5 10 ^3/uL (1.6-8.6); Neutrophils % (auto) 55.1 % (37.0-80.0); Red Blood Cells 2.61 10^6/uL (4.0-5.20); White Blood Cell 2.7 10^3/uL (4.4-10.8)
[2023-11-01 12:40] LABS: Alkaline Phosphatase 153 U/L (46-116); Anion Gap 5 (5-15); BUN/Creatinine Ratio 9.3 (10.0-20.0); Blood Urea Nitrogen 8 mg/dL (9-23); Carbon Dioxide 27 mmol/L (20-30); Chloride 106 mmol/L (98-107); Glucose 105 mg/dL (74-106); Potassium 3.7 mmol/L (3.5-5.1); Sodium 138 mmol/L (136-145)
[2023-11-01 12:41] LABS: Albumin 3.8 g/dL (3.2-4.8); Aspartate Aminotransferase 11 U/L (13-40); Bilirubin, Total 1.4 mg/dL (0.2-1.0); Total Protein 6.9 g/dL (5.7-8.2)
[2023-11-01 12:45] LABS: Alanine Aminotransferase < 9 U/L (7-40)
[2023-11-01 13:56] LABS: Red Cell Distribution Width 23.5 % (11.8-14.3)
[2023-11-01 16:41] LABS: Anisocytosis Slight; Platelet Estimate Decreased
== END | disposition home or self-care (01) ==
LOC: LAB 11:22
PROVIDERS: ATTEND Internal Medicine
DX: C92.00 Acute myeloblastic leukemia, not having achieved remission (principal); D46.9 Myelodysplastic syndrome, unspecified; D69.3 Immune thrombocytopenic purpura; R59.0 Localized enlarged lymph nodes; C44.310 Basal cell carcinoma of skin of unspecified parts of face; Z91.040 Latex allergy status; Z88.8 Allergy status to other drugs, medicaments and biological substances
CPT/HCPCS: 36415; 80053; 83615; 85025

== ENCOUNTER → 2023-11-10 | Outpatient (CLI) | payer MEDICARE, BC ==
[2023-11-10 12:51] LABS: Basophils # (auto) 0 10 ^3/uL (0-0.2); Basophils % (auto) 0.6 % (0.0-2.0); Eosinophils # (auto) 0 10 ^3/uL (0-0.8); Monocytes # (auto) 0.2 10 ^3/uL (0-1.3)
[2023-11-10 12:53] LABS: Eosinophils % (auto) 0.3 % (0.0-7.0); Hematocrit 24.6 % (36.0-46.0); Lymphocytes # (auto) 0.8 10 ^3/uL (0.4-5.4); Lymphocytes % (auto) 49.1 % (10.0-50.0); Mean Corpuscular Hemoglobin 28.5 pg (28.0-32.0); Mean Corpuscular Hgb Conc. 32.7 g/dL (32.0-36.0); Mean Corpuscular Volume 87.1 fL (80.0-100.0); Monocytes % (auto) 10.3 % (0.0-12.0); Neutrophils # (auto) 0.6 10 ^3/uL (1.6-8.6); Neutrophils % (auto) 39.7 % (37.0-80.0); Red Blood Cells 2.82 10^6/uL (4.0-5.20)
[2023-11-10 12:55] LABS: Nucleated Red Blood Cells % 3.2 %; Red Cell Distribution Width 24.5 % (11.8-14.3)
[2023-11-10 13:01] LABS: White Blood Cell 1.6 10^3/uL (4.4-10.8)
[2023-11-10 13:45] LABS: Alanine Aminotransferase 14 U/L (7-40); Albumin 3.8 g/dL (3.2-4.8); Alkaline Phosphatase 169 U/L (46-116); Anion Gap 7 (5-15); Aspartate Aminotransferase 20 U/L (13-40); Calcium 9.9 mg/dL (8.5-10.1); Carbon Dioxide 25 mmol/L (20-30); Chloride 103 mmol/L (98-107); Glucose 104 mg/dL (74-106); Potassium 3.8 mmol/L (3.5-5.1); Sodium 135 mmol/L (136-145)
[2023-11-10 13:46] LABS: Bilirubin, Total 1.6 mg/dL (0.2-1.0)
[2023-11-10 13:48] LABS: BUN/Creatinine Ratio 14.3 (10.0-20.0); Blood Urea Nitrogen 13 mg/dL (9-23)
== END | disposition home or self-care (01) ==
LOC: LAB 12:41
PROVIDERS: ATTEND Internal Medicine
DX: C44.310 Basal cell carcinoma of skin of unspecified parts of face (principal); R59.0 Localized enlarged lymph nodes; D69.3 Immune thrombocytopenic purpura; D46.9 Myelodysplastic syndrome, unspecified; C92.00 Acute myeloblastic leukemia, not having achieved remission
CPT/HCPCS: 36415; 80053; 83615; 85025

== ENCOUNTER → 2023-11-17 | Outpatient (CLI) | payer MEDICARE, BC ==
[2023-11-17 10:09] LABS: Basophils # (auto) 0 10 ^3/uL (0-0.2); Eosinophils # (auto) 0 10 ^3/uL (0-0.8); Hemoglobin 7.7 g/dL (12.2-16.2); Lymphocytes # (auto) 0.6 10 ^3/uL (0.4-5.4); Monocytes # (auto) 0.2 10 ^3/uL (0-1.3); Neutrophils # (auto) 0.7 10 ^3/uL (1.6-8.6)
[2023-11-17 10:12] LABS: Basophils % (auto) 0.5 % (0.0-2.0); Eosinophils % (auto) 0.8 % (0.0-7.0); Hematocrit 23.8 % (36.0-46.0); Lymphocytes % (auto) 40.6 % (10.0-50.0); Mean Corpuscular Hemoglobin 27.6 pg (28.0-32.0); Mean Corpuscular Hgb Conc. 32.1 g/dL (32.0-36.0); Monocytes % (auto) 14.3 % (0.0-12.0); Neutrophils % (auto) 43.8 % (37.0-80.0); Nucleated Red Blood Cells % 1.6 %; Red Blood Cells 2.77 10^6/uL (4.0-5.20)
[2023-11-17 10:26] LABS: Alanine Aminotransferase 11 U/L (7-40); Albumin 3.8 g/dL (3.2-4.8); Alkaline Phosphatase 152 U/L (46-116); Anion Gap 6 (5-15); Aspartate Aminotransferase 14 U/L (13-40); BUN/Creatinine Ratio 14.5 (10.0-20.0); Bilirubin, Total 1.7 mg/dL (0.2-1.0); Blood Urea Nitrogen 12 mg/dL (9-23); Calcium 9.7 mg/dL (8.5-10.1); Carbon Dioxide 26 mmol/L (20-30); Chloride 103 mmol/L (98-107); Glucose 114 mg/dL (74-106); Potassium 3.8 mmol/L (3.5-5.1); Sodium 135 mmol/L (136-145); Total Protein 6.9 g/dL (5.7-8.2)
[2023-11-17 10:28] LABS: Red Cell Distribution Width 24.1 % (11.8-14.3)
[2023-11-17 10:30] LABS: White Blood Cell 1.6 10^3/uL (4.4-10.8)
== END | disposition home or self-care (01) ==
LOC: LAB 09:40
PROVIDERS: ATTEND Internal Medicine
DX: C44.310 Basal cell carcinoma of skin of unspecified parts of face (principal); R59.0 Localized enlarged lymph nodes; D69.3 Immune thrombocytopenic purpura; D46.9 Myelodysplastic syndrome, unspecified; C92.00 Acute myeloblastic leukemia, not having achieved remission; I10 Essential (primary) hypertension
CPT/HCPCS: 36415; 80053; 83615; 84439; 84443; 85025

== ENCOUNTER → 2023-11-22 | Outpatient (CLI) | payer MEDICARE, BC ==
[2023-11-22 10:27] LABS: Basophils # (auto) 0 10 ^3/uL (0-0.2); Eosinophils # (auto) 0 10 ^3/uL (0-0.8); Eosinophils % (auto) 0.4 % (0.0-7.0); Lymphocytes # (auto) 0.6 10 ^3/uL (0.4-5.4); Monocytes # (auto) 0.2 10 ^3/uL (0-1.3); Red Blood Cells 2.43 10^6/uL (4.0-5.20)
[2023-11-22 10:31] LABS: Basophils % (auto) 0.4 % (0.0-2.0); Hematocrit 20.9 % (36.0-46.0); Lymphocytes % (auto) 33.5 % (10.0-50.0); Mean Corpuscular Hemoglobin 27.8 pg (28.0-32.0); Mean Corpuscular Hgb Conc. 32.4 g/dL (32.0-36.0); Monocytes % (auto) 9.2 % (0.0-12.0); Neutrophils % (auto) 56.5 % (37.0-80.0)
[2023-11-22 10:54] LABS: Alanine Aminotransferase 10 U/L (7-40); Alkaline Phosphatase 129 U/L (46-116); Anion Gap 4 (5-15); Aspartate Aminotransferase 13 U/L (13-40); Blood Urea Nitrogen 18 mg/dL (9-23); Calcium 9.9 mg/dL (8.5-10.1); Carbon Dioxide 26 mmol/L (20-30); Chloride 108 mmol/L (98-107); Glucose 108 mg/dL (74-106); Potassium 4.5 mmol/L (3.5-5.1); Sodium 138 mmol/L (136-145)
[2023-11-22 10:56] LABS: Albumin 3.7 g/dL (3.2-4.8); Bilirubin, Total 1.4 mg/dL (0.2-1.0); Total Protein 6.7 g/dL (5.7-8.2)
[2023-11-22 11:02] LABS: Red Cell Distribution Width 24.9 % (11.8-14.3)
[2023-11-22 11:07] LABS: Hemoglobin 6.8 g/dL (12.2-16.2); White Blood Cell 1.8 10^3/uL (4.4-10.8)
[2023-11-22 11:29] LABS: Uric Acid 4.6 mg/dL (3.1-7.8)
[2023-11-22 12:31] LABS: Anisocytosis Moderate; Platelet Estimate Markedly Decreased; Stomatocytes Few
[2023-11-22 12:32] LABS: Ovalocytes FEW; Tear Drop Cells FEW
== END | disposition home or self-care (01) ==
LOC: LAB 10:14
PROVIDERS: ATTEND Internal Medicine
DX: R59.0 Localized enlarged lymph nodes (principal); C44.310 Basal cell carcinoma of skin of unspecified parts of face; D69.3 Immune thrombocytopenic purpura; D46.9 Myelodysplastic syndrome, unspecified; C92.00 Acute myeloblastic leukemia, not having achieved remission
CPT/HCPCS: 36415; 80053; 83615; 84550; 85025

== ENCOUNTER 2023-11-26 07:42 | Day surgery (SDC) | payer MEDICARE, BC ==
[~2023-11-26] VITALS: Ht 167.6 cm; Wt 68.0 kg
[2023-11-26 08:55] VITALS: BP 144/57; PULSE 87; RESP 16; TEMP 98.1; O2SAT 98
[2023-11-26 09:13] VITALS: BP 153/66; PULSE 83; RESP 16; TEMP 97.8; O2SAT 99
[2023-11-26 09:46] VITALS: BP 134/60; PULSE 81; RESP 20; O2SAT 96
[2023-11-26 10:15] VITALS: BP 164/58; PULSE 83; RESP 18; O2SAT 97
[2023-11-26 11:50] VITALS: BP 151/68; PULSE 80; RESP 18; TEMP 98.3
[2023-11-26 12:05] VITALS: BP 151/68; PULSE 81; RESP 18; O2SAT 98
== END 2023-11-26 12:10 | disposition home or self-care (01) ==
LOC: CATH 07:42
PROVIDERS: ATTEND Student in an Organized Health Care Education/Training Program
DX: D69.3 Immune thrombocytopenic purpura (principal); C92.00 Acute myeloblastic leukemia, not having achieved remission; D46.9 Myelodysplastic syndrome, unspecified; I10 Essential (primary) hypertension
CPT/HCPCS: 36430; 86850; 86900; 86901; 86920; J7040; P9016

== ENCOUNTER → 2023-11-30 | Outpatient (CLI) | payer MEDICARE, BC ==
[2023-11-30 09:09] LABS: Basophils # (auto) 0 10 ^3/uL (0-0.2); Eosinophils # (auto) 0 10 ^3/uL (0-0.8); Eosinophils % (auto) 0.2 % (0.0-7.0); Hemoglobin 8.4 g/dL (12.2-16.2); Mean Corpuscular Hgb Conc. 32.9 g/dL (32.0-36.0); Monocytes # (auto) 0.2 10 ^3/uL (0-1.3); Neutrophils # (auto) 2.7 10 ^3/uL (1.6-8.6); White Blood Cell 3.7 10^3/uL (4.4-10.8)
[2023-11-30 09:11] LABS: Basophils % (auto) 0.3 % (0.0-2.0); Hematocrit 25.6 % (36.0-46.0); Lymphocytes # (auto) 0.8 10 ^3/uL (0.4-5.4); Lymphocytes % (auto) 20.5 % (10.0-50.0); Mean Corpuscular Volume 91.3 fL (80.0-100.0); Monocytes % (auto) 6.2 % (0.0-12.0); Neutrophils % (auto) 72.8 % (37.0-80.0); Nucleated Red Blood Cells % 0.8 %
[2023-11-30 09:14] LABS: Albumin 3.6 g/dL (3.2-4.8); Alkaline Phosphatase 123 U/L (46-116); Anion Gap 4 (5-15); Aspartate Aminotransferase 9 U/L (13-40); BUN/Creatinine Ratio 15.3 (10.0-20.0); Blood Urea Nitrogen 11 mg/dL (9-23); Calcium 9.3 mg/dL (8.7-10.4); Carbon Dioxide 27 mmol/L (20-30); Chloride 107 mmol/L (98-107); Glucose 101 mg/dL (74-106); Potassium 3.8 mmol/L (3.5-5.1); Sodium 138 mmol/L (136-145)
[2023-11-30 09:15] LABS: Bilirubin, Total 1.5 mg/dL (0.2-1.0); Total Protein 6.4 g/dL (5.7-8.2)
[2023-11-30 09:23] LABS: Alanine Aminotransferase < 9 U/L (7-40)
[2023-11-30 10:54] LABS: Platelet Estimate Markedly Decreased
== END | disposition home or self-care (01) ==
LOC: LAB 08:24
PROVIDERS: ATTEND Internal Medicine
DX: C44.310 Basal cell carcinoma of skin of unspecified parts of face (principal); R59.0 Localized enlarged lymph nodes; D69.3 Immune thrombocytopenic purpura; D46.9 Myelodysplastic syndrome, unspecified; C92.00 Acute myeloblastic leukemia, not having achieved remission
CPT/HCPCS: 36415; 80053; 83615; 85025

== ENCOUNTER 2023-12-02 07:50 | Day surgery (SDC) | payer MEDICARE, BC ==
[~2023-12-02] VITALS: Ht 167.6 cm; Wt 68.0 kg
[2023-12-02 08:35] VITALS: BP 131/50; PULSE 80; RESP 20; TEMP 98.4
[2023-12-02 08:55] VITALS: BP 117/40; PULSE 74; RESP 20; TEMP 98
[2023-12-02 09:33] VITALS: BP 121/43; PULSE 77; RESP 16; TEMP 98
[2023-12-02 10:15] VITALS: BP 129/48; PULSE 78; RESP 17; TEMP 97.9
[2023-12-02 10:24] VITALS: BP 123/49; PULSE 79; RESP 19; O2SAT 100
== END 2023-12-02 10:34 | disposition home or self-care (01) ==
LOC: CATH 07:50
PROVIDERS: ATTEND Internal Medicine
DX: D69.3 Immune thrombocytopenic purpura (principal); C92.00 Acute myeloblastic leukemia, not having achieved remission; D46.9 Myelodysplastic syndrome, unspecified; I10 Essential (primary) hypertension
CPT/HCPCS: 36430; 86850; 86900; 86901; P9035

== ENCOUNTER → 2023-12-07 | Outpatient (CLI) | payer MEDICARE, BC ==
[2023-12-07 08:55] LABS: Hematocrit 25.7 % (36.0-46.0); Hemoglobin 8.5 g/dL (12.2-16.2); Mean Corpuscular Hemoglobin 29.7 pg (28.0-32.0); Mean Corpuscular Hgb Conc. 33.1 g/dL (32.0-36.0); Mean Corpuscular Volume 89.7 fL (80.0-100.0); Red Blood Cells 2.86 10^6/uL (4.0-5.20)
[2023-12-07 09:00] LABS: Red Cell Distribution Width 25.1 % (11.8-14.3)
[2023-12-07 09:03] LABS: Band Neutrophils % (manual) 0; Basophils % (manual) 0 (0.0-2.0); Blast Cells 0; Eosinophils % (manual) 0 (0-7); Metamyelocytes % 0; Myelocytes % 0; Promyelocytes % 0; Reactive Lymphocytes 0; White Blood Cell 1.8 10^3/uL (4.4-10.8)
[2023-12-07 09:38] LABS: Alanine Aminotransferase 10 U/L (7-40); Albumin 3.6 g/dL (3.2-4.8); Alkaline Phosphatase 143 U/L (46-116); Anion Gap 5 (5-15); Aspartate Aminotransferase 12 U/L (13-40); BUN/Creatinine Ratio 14.3 (10.0-20.0); Bilirubin, Total 1.9 mg/dL (0.2-1.0); Blood Urea Nitrogen 10 mg/dL (9-23); Calcium 9.4 mg/dL (8.7-10.4); Carbon Dioxide 26 mmol/L (20-30); Chloride 105 mmol/L (98-107); Glucose 112 mg/dL (74-106); Potassium 3.7 mmol/L (3.5-5.1); Sodium 136 mmol/L (136-145); Total Protein 6.4 g/dL (5.7-8.2)
[2023-12-07 10:49] LABS: Lymphocytes % (manual) 30 (10.0-50.0); Monocytes % (manual) 8 (0-12)
[2023-12-07 10:50] LABS: Ovalocytes FEW; Platelet Estimate Markedly Decreased; Stomatocytes Few; Tear Drop Cells FEW
== END | disposition home or self-care (01) ==
LOC: LAB 08:38
PROVIDERS: ATTEND Internal Medicine
DX: C44.310 Basal cell carcinoma of skin of unspecified parts of face (principal); R59.0 Localized enlarged lymph nodes; D69.3 Immune thrombocytopenic purpura; D46.9 Myelodysplastic syndrome, unspecified; C92.00 Acute myeloblastic leukemia, not having achieved remission
CPT/HCPCS: 36415; 80053; 83615; 85007; 85027

== ENCOUNTER → 2023-12-14 | Outpatient (CLI) | payer MEDICARE, BC ==
[2023-12-14 09:39] LABS: Hematocrit 25.7 % (36.0-46.0); Hemoglobin 8.4 g/dL (12.2-16.2); Mean Corpuscular Hgb Conc. 32.5 g/dL (32.0-36.0); Mean Corpuscular Volume 85.9 fL (80.0-100.0)
[2023-12-14 09:42] LABS: Red Cell Distribution Width 25.5 % (11.8-14.3); White Blood Cell 1.7 10^3/uL (4.4-10.8)
[2023-12-14 09:44] LABS: Band Neutrophils % (manual) 0; Basophils % (manual) 0 (0.0-2.0); Blast Cells 0; Eosinophils % (manual) 0 (0-7); Metamyelocytes % 0; Myelocytes % 0; Promyelocytes % 0; Reactive Lymphocytes 0
[2023-12-14 10:14] LABS: Alanine Aminotransferase 11 U/L (7-40); Alkaline Phosphatase 179 U/L (46-116); Anion Gap 8 (5-15); BUN/Creatinine Ratio 16.9 (10.0-20.0); Blood Urea Nitrogen 14 mg/dL (9-23); Calcium 9.8 mg/dL (8.7-10.4); Carbon Dioxide 25 mmol/L (20-30); Chloride 102 mmol/L (98-107); Glucose 113 mg/dL (74-106); Potassium 3.8 mmol/L (3.5-5.1); Sodium 135 mmol/L (136-145)
[2023-12-14 10:15] LABS: Albumin 3.7 g/dL (3.2-4.8); Aspartate Aminotransferase 14 U/L (13-40); Bilirubin, Total 2.1 mg/dL (0.2-1.0); Total Protein 6.7 g/dL (5.7-8.2)
[2023-12-14 10:26] LABS: Lymphocytes % (manual) 34 (10.0-50.0); Monocytes % (manual) 12 (0-12); Platelet Estimate Markedly Decreased
== END | disposition home or self-care (01) ==
LOC: LAB 09:23
PROVIDERS: ATTEND Internal Medicine
DX: C44.310 Basal cell carcinoma of skin of unspecified parts of face (principal); R59.0 Localized enlarged lymph nodes; D69.3 Immune thrombocytopenic purpura; D46.9 Myelodysplastic syndrome, unspecified; C92.00 Acute myeloblastic leukemia, not having achieved remission
CPT/HCPCS: 36415; 80053; 83615; 85007; 85027

== ENCOUNTER → 2023-12-21 | Outpatient (CLI) | payer MEDICARE, BC ==
[2023-12-21 09:07] LABS: Basophils # (auto) 0 10 ^3/uL (0-0.2); Basophils % (auto) 0.5 % (0.0-2.0); Eosinophils # (auto) 0 10 ^3/uL (0-0.8); Lymphocytes # (auto) 0.6 10 ^3/uL (0.4-5.4); Monocytes # (auto) 0.1 10 ^3/uL (0-1.3); Neutrophils # (auto) 0.7 10 ^3/uL (1.6-8.6)
[2023-12-21 09:08] LABS: Eosinophils % (auto) 0.9 % (0.0-7.0); Hematocrit 20.5 % (36.0-46.0); Lymphocytes % (auto) 45.1 % (10.0-50.0); Mean Corpuscular Hemoglobin 26.9 pg (28.0-32.0); Mean Corpuscular Hgb Conc. 31.5 g/dL (32.0-36.0); Mean Corpuscular Volume 85.3 fL (80.0-100.0); Monocytes % (auto) 7.7 % (0.0-12.0); Neutrophils % (auto) 45.8 % (37.0-80.0); Nucleated Red Blood Cells % 1.2 %; Red Blood Cells 2.41 10^6/uL (4.0-5.20)
[2023-12-21 09:13] LABS: Red Cell Distribution Width 24.8 % (11.8-14.3)
[2023-12-21 09:17] LABS: Hemoglobin 6.5 g/dL (12.2-16.2); White Blood Cell 1.4 10^3/uL (4.4-10.8)
[2023-12-21 09:59] LABS: Albumin 3.3 g/dL (3.2-4.8); Alkaline Phosphatase 124 U/L (46-116); Anion Gap 5 (5-15); Aspartate Aminotransferase 12 U/L (13-40); BUN/Creatinine Ratio 14.5 (10.0-20.0); Bilirubin, Total 1.4 mg/dL (0.2-1.0); Blood Urea Nitrogen 10 mg/dL (9-23); Calcium 9.3 mg/dL (8.7-10.4); Carbon Dioxide 27 mmol/L (20-30); Chloride 107 mmol/L (98-107); Glucose 111 mg/dL (74-106); Potassium 3.6 mmol/L (3.5-5.1); Sodium 139 mmol/L (136-145); Total Protein 6.1 g/dL (5.7-8.2)
[2023-12-21 10:06] LABS: Alanine Aminotransferase < 9 U/L (7-40)
[2023-12-21 11:33] LABS: Platelet Estimate Markedly Decreased
[2023-12-21 11:37] LABS: Ovalocytes MODERATE
== END | disposition home or self-care (01) ==
LOC: LAB 08:45
PROVIDERS: ATTEND Internal Medicine
DX: C44.310 Basal cell carcinoma of skin of unspecified parts of face (principal); C92.00 Acute myeloblastic leukemia, not having achieved remission; R59.0 Localized enlarged lymph nodes; D69.3 Immune thrombocytopenic purpura; D46.9 Myelodysplastic syndrome, unspecified
CPT/HCPCS: 36415; 80053; 83615; 85025

== ENCOUNTER → 2023-12-28 | Outpatient (CLI) | payer MEDICARE, BC ==
[2023-12-28 12:12] LABS: Basophils # (auto) 0 10 ^3/uL (0-0.2); Eosinophils # (auto) 0 10 ^3/uL (0-0.8); Hemoglobin 7.1 g/dL (12.2-16.2); Lymphocytes # (auto) 0.7 10 ^3/uL (0.4-5.4); Mean Corpuscular Hgb Conc. 31.6 g/dL (32.0-36.0); Monocytes # (auto) 0.2 10 ^3/uL (0-1.3); Red Cell Distribution Width 31.3 % (11.8-14.3); White Blood Cell 2.5 10^3/uL (4.4-10.8)
[2023-12-28 12:15] LABS: Basophils % (auto) 0.3 % (0.0-2.0); Eosinophils % (auto) 0.1 % (0.0-7.0); Hematocrit 22.4 % (36.0-46.0); Mean Corpuscular Volume 91.7 fL (80.0-100.0); Monocytes % (auto) 7.1 % (0.0-12.0); Neutrophils # (auto) 1.6 10 ^3/uL (1.6-8.6); Neutrophils % (auto) 63.5 % (37.0-80.0); Nucleated Red Blood Cells % 1.5 %; Red Blood Cells 2.45 10^6/uL (4.0-5.20)
[2023-12-28 12:39] LABS: Albumin 3.5 g/dL (3.2-4.8); Alkaline Phosphatase 123 U/L (46-116); Anion Gap 5 (5-15); Aspartate Aminotransferase 10 U/L (13-40); BUN/Creatinine Ratio 12.7 (10.0-20.0); Bilirubin, Total 1.4 mg/dL (0.2-1.0); Blood Urea Nitrogen 10 mg/dL (9-23); Calcium 9.2 mg/dL (8.7-10.4); Carbon Dioxide 28 mmol/L (20-30); Chloride 106 mmol/L (98-107); Glucose 122 mg/dL (74-106); Potassium 3.7 mmol/L (3.5-5.1); Sodium 139 mmol/L (136-145); Total Protein 6.3 g/dL (5.7-8.2)
[2023-12-28 12:40] LABS: Alanine Aminotransferase < 9 U/L (7-40)
[2023-12-28 13:41] LABS: Anisocytosis Moderate; Ovalocytes FEW; Platelet Estimate Markedly Decreased
== END | disposition home or self-care (01) ==
LOC: LAB 11:37
PROVIDERS: ATTEND Internal Medicine
DX: C92.00 Acute myeloblastic leukemia, not having achieved remission (principal); D69.3 Immune thrombocytopenic purpura; D46.9 Myelodysplastic syndrome, unspecified; C44.310 Basal cell carcinoma of skin of unspecified parts of face
CPT/HCPCS: 36415; 80053; 83615; 85025